=== PATIENT | female | born 1935 | race Caucasian/White ===

== ENCOUNTER 2017-07-23 15:24 | Inpatient (IN) | payer MEDICARE, OTHER ==
--- NOTE | ~2017-07-23 | HEMODYNAMI ---
PATIENT:EWELINA HERRON MEDICAL RECORD: [id number] : 35 LOCATION[facility] [id number] ADMISSION DATE: 07/23/17 Generatedon:07/27/20178:22 Patient name: EWELINA HERRON Patient #: [id number] SSN: : Date of study: 07/27/2017 Page: Of Hemodynamic Procedure Report Patient Data Patient Demographics Procedure consent was obtained First Name: EWELINA Gender: Female Last Name: GERMAINE : 1935 Patient #: [id number] Age: 82 year(s) Race: Unknown Additional ID: [id number] Contact details [address]: [address] [place] [address] State: [place] City: [place] Zip code: [address] Past Medical History Allergies Allergen Reaction Date Comments Reported Other allergy 07/27/2017 Sulfa Admission Admission Data Admission Date: 07/23/2017 Admission Time: 17:27 Room #: D.2102 Lab Results Lab Result Date: 07/27/2017 Lab Result Time: 4:13 Biochemistry Name Units Result Min Max BUN mg/dl 25 --(----)-* 7 18 Creatinine mg/dl 1.2 --(---*)-- 0.6 1.3 CBC Name Units Result Min Max Hematocrit % 42.1 --(*---)-- 42 54 Hemoglobin g/dl 14 --(*---)-- 13.5 17.5 Procedure Procedure Types Cath Procedure Diagnostic Procedure LHC LHC w/Coronaries Sedation Charges Moderate Sedation up to 15 minutes PCI Procedure Coronary Stent Coronary Stent Initial Procedure Description Procedure Date Procedure Date: 07/27/2017 Procedure Start Time: 7:58 Procedure End Time: 8:20 Procedure Staff Name Function Len Peraza MD Performing Physician Earl Patel RN Nurse Sally Giles RT Scrub Tuan Franco RT Monitor Genevieve Pichardo RT Operations Lead Procedure Data Cath Procedure Fluoroscopy Diagnostic fluoroscopy Total fluoroscopy Time: 4.6 time: 4.6 min min Diagnostic fluoroscopy Total fluoroscopy dose: 797 dose: 797 mGy mGy Contrast Material Contrast Material Type Amount (ml) Isovue 370 91 Entry Location Entry Primary Successful Side Size Upsize Upsize Entry Closure Dos Santos ccessful Closure Location (Fr) 1 (Fr) 2 (Fr) Remarks Device Remarks Radial Right 6 Fr Mechanical artery Short Compression Estimated blood loss: 10 ml Diagnostic catheters Device Type Used For End Catheter Placement DIAGNOSTIC [place] 110cm 5 Procedure Fr catheter ([id number]) Procedure Complications No complications Procedure Medications Medication Administration Route Dosage 0.9% NaCl I.V. 100 ml/hr Oxygen etCO2 Nasal cannula 2 l/min Heparin Flush Bag added to field 2 bags (1000units/500ml NS) Lidocaine 2% added to field 20 Versed I.V. 1 mg Fentanyl I.V. 50 mcg Radial Cocktail added to field 1 syringe (Verapomil 2mg/Nitro 400mcg/Heparin 1500units) Heparin Bolus I.V. 8200 units Radial Cocktail I.A. 1 syringe (Verapomil 2mg/Nitro 400mcg/Heparin 1500units) Plavix P.O. 600 mg Hemodynamics Rest HGB: 14 (g/dl) Heart Rate: 124 (bpm) Pressure Samples Time Site Value (mmHg) Purpose Heart Use Rate(bpm) 8:01 LV 107/-2,5 Snapshot 110 Gradients Valve Time Site Site Mean SEP/DFP Peak To Heart Use 1 2 (mmHg) (sec/min) Peak Rate (mmHg) (bpm) Aortic 8:02 LV AO 115 Snapshots Pre Cath Intra NCS Post Cath Vital Signs Time Heart Resp SPO2 etCO2 NIBP (mmHg) Rhythm Pain Sedation Rate (ipm) (%) (mmHg) Status Level (bpm) 7:47:52 113 34 98 27.7 130/90(119) A-Fib 0 (11) 10(A) , No pain 7:52:23 112 23 98 34.5 122/90(107) A-Fib 0 (11) 10(A) , No pain 7:57:34 111 18 96 36 130/91(117) A-Fib 0 (11) 9(A) , No pain 8:02:08 122 18 94 36.8 120/86(109) A-Fib 0 (11) 9(A) , No pain 8:06:47 119 17 92 18 98/64(81) A-Fib 0 (11) 9(A) , No pain 8:11:17 114 17 92 37.5 102/71(91) A-Fib 0 (11) 9(A) , No pain 8:15:50 110 17 94 35.2 115/72(96) A-Fib 0 (11) 10(A) , No pain 8:20:24 114 19 94 33.7 121/73(87) A-Fib 0 (11) 10(A) , No pain Medications Time Medication Route Dose Verified Delivered Reason Note s Effectiveness by by 7:50:25 0.9% NaCl I.V. 100 Earl Earl Per physician ml/hr Amanda Patel RN RN 7:50:35 Oxygen etCO2 2 l/min Earl Earl Per physician Nasal Amanda Patel cannula RN RN 7:50:50 Heparin Flush added 2 bags Earl Earl used for Bag to Lorjamar Patel procedure (1000units/500ml field RN RN NS) 7:51:09 Lidocaine 2% added 20ml Earl Earl for local to vial Lorigan Amanda anesthetic field RN RN 7:51:24 Versed I.V. 1 mg Earl Earl for sedation Amanda Patel RN RN 7:51:33 Fentanyl I.V. 50 mcg Earl Earl for sedation Amanda Patel RN RN 7:55:37 Radial Cocktail added 1 Earl Earl used for (Verapomil to syringe Lorigan Lorigan procedure 2mg/Nitro field RN RN 400mcg/Heparin 1500units) 8:01:17 Radial Cocktail I.A. 1 Earl Len for (Verapomil syringe Amanda Peraza MD vasodilation 2mg/Nitro RN 400mcg/Heparin 1500units) 8:09:40 Heparin Bolus I.V. 8,200 Earl Earl for units Amanda Patel anticoagulation RN RN 8:21:26 Plavix P.O. 600 mg Earl Earl for Lorjamar Patel antiplatelet RN RN therapy Procedure Log Time Note 7:27:52 Genevieve Pichardo RT(R) sent for patient. Start room use. 7:27:52 Time tracking: Regular hours (M-F 7:00 - 5:00) 7:27:58 Plan of Care:Hemodynamics will remain stable., Cardiac rhythm will remain stable., Comfort level will be maintained., Respiratory function will remain adequate., Patient/ family verbilizes understanding of procedure., Procedure tolerated without complication., Recovers from procedure without complications.. 7:39:56 Patient received from Med II to CCL 1 Alert and oriented. Tansferred to table in Supine position. 7:39:58 Warm blankets applied, and carl hugger turned on for patient comfort. 7:39:58 Correct patient and procedure confirmed by team. 7:40:00 Signed procedure consent form obtained from patient. 7:40:01 ECG and BP/O2 sat monitors applied to patient. 7:42:14 Pre-procedure instructions explained to patient. 7:42:14 Pre-op teaching completed and patient verbalized understanding. 7:42:16 Family in waiting room. 7:42:17 Patient NPO since Midnight. 7:42:33 Patient allergic to Other allergySulfa 7:43:10 Lab Result : Hemoglobin 14 g/dl 7:43:10 Lab Result : Hematocrit 42.1 % 7:43:10 Lab Result : BUN 25 mg/dl 7:43:10 Lab Result : Creatinine 1.2 mg/dl 7:47:08 Vital chart was started 7:47:10 Baseline sample Acquired. 7:47:19 Rhythm: atrial fibrillation 7:47:20 Full Disclosure recording started 7:47:31 H&P Date Dictated: 07/23/2017 Within 30 days and on chart.. 7:47:34 Is the patient allergic to Iodine/contrast media? No. 7:48:29 Is patient on blood thinner?No 7:48:30 Patient diabetic? No. 7:48:34 Previous problem with sedation/anesthesia? No ? 7:48:35 Snore? No 7:48:37 Sleep apnea? No 7:48:38 Deviated septum? No 7:48:38 Opens mouth fully? Yes 7:48:39 Sticks out tongue? Yes 7:48:41 Airway obstruction? No ? 7:48:46 Dentures? Yes Partial in tight 7:48:51 Modified Aydin's test Ulnar < 7 seconds 7:48:52 Patient pain scale 0/10 ?. 7:49:07 IV patent on arrival in left forearm with 0.9% NaCl at [facility]. 7:49:09 Lab results completed and on chart. 7:49:12 Right Radial & Right Groin area was prepped with chlora-prep and draped in sterile fashion 7:49:13 Alarms reviewed by R. N. 7:49:14 Sharps counted by scrub and verified by R.N. 7:49:18 Use device set Radial Dx or PCI 7:49:19 ACIST Syringe (62517) opened to sterile field. 7:49:19 Medline Cath Pack ([id number]) opened to sterile field. 7:49:20 Bag Decanter (2002S) opened to sterile field. 7:49:21 ACIST Hand Control (24867) opened to sterile field. 7:49:22 ACIST Manifold (67813) opened to sterile field. 7:49:22 Tegaderm 4 x 4 (1626W) opened to sterile field. 7:49:23 MBrace Wrist Support ([id number]) opened to sterile field. 7:49:24 SHEATH 6Fr Prelude Radial ([id number]) opened to sterile field. 7:49:25 DIAGNOSTIC WIRE .035 260cm J wire (103950) opened to sterile field. 7:49:35 Physician arrived 7:49:40 --------ALL STOP TIME OUT------ 7:49:40 Final Timeout: patient, procedure, and site verified with staff and physician. All members of the team are in agreement. 7:49:42 Right Radial & Right Groin site verified by team. 7:49:46 Physical assessment completed. ASA score P 2 - A patient with mild systemic disease as per Len Peraza MD. 7:49:49 Sedation plan: IV Moderate Sedation Medication:Versed, Fentanyl 7:50:25 0.9% NaCl 100 ml/hr I.V. was administered by Earl Patel RN; Per physician; 7:50:35 Oxygen 2 l/min etCO2 Nasal cannula was administered by Earl Patel RN; Per physician; 7:50:50 Heparin Flush Bag (1000units/500ml NS) 2 bags added to field was administered by Earl Patel RN; used for procedure; 7:51:09 Lidocaine 2% 20ml vial added to field was administered by Earl Patel RN; for local anesthetic; 7:51:24 Versed 1 mg I.V. was administered by Earl Patel RN; for sedation; 7:51:33 Fentanyl 50 mcg I.V. was administered by Earl Patel RN; for sedation; 7:55:37 Radial Cocktail (Verapomil 2mg/Nitro 400mcg/Heparin 1500units) 1 syringe added to field was administered by Earl Patel RN; used for procedure; 7:55:45 Zero performed for pressure channel P1 7:55:48 Zero performed for pressure channel P1 7:55:59 Zero performed for pressure channel P1 7:58:13 Procedure started. 7:58:16 Local anesthetic to right radial artery with Lidocaine 2% by Len Peraza MD.INITIAL ACCESS ONLY 8:00:01 A 6 Fr Short sheath was inserted into the Right Radial artery 8:00:05 A DIAGNOSTIC [place] 110cm 5 Fr catheter ([id number]) was advanced over the wire and used for Procedure. 8:01:17 Radial Cocktail (Verapomil 2mg/Nitro 400mcg/Heparin 1500units) 1 syringe I.A. was administered by Len Peraza MD; for vasodilation; 8:01:30 LV gram done using COHEN 8:01:32 Injector settings: Ml/sec: 5, Volume: 15, 8:01:45 EF : 20 % 8:02:14 LV hemodynamics recorded. 8:02:30 LCA angiography performed. 8:03:49 RCA angiography performed. 8:05:07 Catheter exchanged over wire. 8:05:36 GUIDE 6FR XBLAD 3.5 catheter ([id number]) opened to sterile field. 8:05:37 BMW 300cm Troy 2 J wire ([id number]) opened to sterile field. 8:05:38 INFLATOR Merit BasixCompak (QZ3579) opened to sterile field. 8:05:39 TUBING High Pressure Extension Tubing (Peraza) ([id number]) opened to sterile field. 8:05:54 6 Fr xblad 3.5 guide catheter was inserted over the wire 8:09:01 bmw wire advanced. 8:09:35 Wire advanced across lesion. 8:09:40 Heparin Bolus 8,200 units I.V. was administered by Earl Patel RN; for anticoagulation; 8:14:06 Place stent Inflation Number: 1 A INTEGRITY OTW 3.5 X 12 stent ([id number]) was prepped and advanced across the Prox LAD. The stent was deployed at 16 LIONEL for 0:10 (min:sec). 8:15:25 Stent catheter was removed intact over wire. 8:15:27 Wire removed. 8:15:27 Guide catheter removed. 8:16:24 TR BAND Standard ([id number]) opened to sterile field. 8:16:33 Sheath removed intact; hemostasis achieved with Mechanical Compression to the Right Radial artery. 8:16:35 Procedure ended.(Physican Out) 8:18:11 Fluoroscopy time 04.60 minutes. 8:18:15 Fluoroscopy dose: 797 mGy 8:18:15 Flurop Dose total: 797 8:18:23 Contrast amount:Isovue 370 91ml. 8:18:25 Sharps counted by scrub and verified by R.N. 8:18:27 TR band inflated with 11cc of air. 8:18:28 Insertion/operative site no bleeding no hematoma. 8:18:35 Post right radial artery:stable, soft, clean and dry 8:18:36 Post Procedure Pulses reassessed and unchanged 8:18:39 Post-procedure physical assessment completed. ASA score P 2 - A patient with mild systemic disease as per Len Peraza MD. 8:18:41 Post procedure rhythm: unchanged. 8:18:44 Estimated blood loss: 10 ml 8:18:45 Post procedure instruction explained to patient.Patient verbalizes understanding. 8:18:46 Patient needs reinforcement of post procedure teaching. 8:18:52 Procedure type changed to Cath procedure, Diagnostic procedure, LHC, LHC w/Coronaries, Sedation Charges, Moderate Sedation up to 15 minutes, PCI procedure, Coronary Stent, Coronary Stent Initial 8:20:13 Procedure and supply charges have been captured, reviewed, submitted and are correct. 8:20:15 Procedure Complication : No complications 8:20:26 Vital chart was stopped 8:20:26 See physician's report for complete and final results. 8:20:40 Report given to PCU. 8:20:43 Patient transfered to PCU with Stretcher. 8:20:45 Procedure ended. 8:20:45 Full Disclosure recording stopped 8:20:59 End room use (Document Last) 8:21:26 Plavix 600 mg P.O. was administered by Earl Patel RN; for antiplatelet therapy; Intervention Summary Intervention Notes Time ActionType Lesion and Equipment Action# Pressure Duration Attributes Used 8:14:[address] Place stent Prox LAD INTEGRITY 1 16 00:10 OTW 3.5 X 12 stent ([id number]) Device Usage Item Name Manufacture Quantity Catalog Number Hospital Part Current M inimal Lot# / Charge Number Stock Stock Serial# Code ACIST Syringe Acist 1 59806 789962 080934 747701 2 0 (43105) Medical Systems Inc Medline Cath Cardinal 1 [id number] 328588 25120 699753 5 Pack Health ([id number]) Bag Decanter Microtek 1 2001S 061100 25134 237829 5 () Medical Inc. ACIST Hand Acist 1 42075 151374 358163 458080 5 Control (13680) Medical Systems Inc ACIST Manifold Acist 1 81714 185931 976198 985834 5 (22091) Medical Systems Inc Tegaderm 4 x 4 3M 1 1626W 048232 640671 177785 5 (1626W) MBrace Wrist Advanced 1 140-0250-00 180366 93409 775998 5 Support Vascular (547188247) Dynamics SHEATH 6Fr Merit 1 [id number] 238723 568197 039498 5 Prelude Radial Medical ([id number]) DIAGNOSTIC WIRE St Yousuf 1 620712 914206 355046 195164 3 0 .035 260cm J wire (178453) DIAGNOSTIC Terumo 1 40-6433 557035 155950 266620 5 [place] 110cm 5 Fr catheter (359032) GUIDE 6FR XBLAD Cardinal 1 [id number] 389858 168965 037381 1 0 3.5 catheter Health (55028963) BMW 300cm [place] 1 [id number] 682839 585262 784455 5 Troy 2 J Vascular wire (8065725L) INFLATOR Merit Merit 1 HZ9600 306450 443183 693256 1 5 Nimble Medical (IU4064) TUBING High Merit 1 [id number] 557865 13684 442584 1 0 Pressure Medical Extension Tubing (Preaza) (DN7640L) INTEGRITY OTW Medtronic 1 [id number] 866673 310500 2 [id number] 3.5 X 12 stent ([id number]) TR BAND Terumo 1 [id number] 100722 256964 508034 4 0 Standard ([id number]) Signature Audit [place] Stage Time Signature Unsigned Intra-Procedure 07/27/2017 Tuan Franco 8:22:42 AM RT(R) Signatures Monitor : Tuan Franco RT Signature : Date : Time : [id number] [place] [address]
[2017-07-23 16:43] LABS: BASOPHILS 0.4 % (0-2); EOSINOPHILS 0.6 % (0-7); HEMATOCRIT 40.9 % (36.0-48.0); HEMOGLOBIN 13.4 g/dL (12-16); IMMATURE GRANULOCYTES 0.1 % (0-5); LYMPHOCYTES 16.9 % (15-50); MCH 30.7 pg (26.0-34.0); MCHC 32.8 g/dL (31.0-37.0); MCV 93.6 fL (80.0-100.0); MEAN PLATELET VOLUME 11.8 fL (7.4-10.4); MONOCYTES 6.5 % (2-11); NEUTROPHILS 75.5 % (40-80); PLATELET COUNT 196 10x3/uL (130-400); RBC 4.37 10x6/uL (4.00-5.40); RDW 13.4 % (11.5-14.5); WBC 9.4 10x3/uL (4.8-10.8)
[2017-07-23 16:56] LABS: ANION GAP 12.5 mmol/L (8-16); BILIRUBIN - TOTAL 0.53 mg/dL (0.2-1.3); CALCIUM 9.5 mg/dL (8.5-10.1); CREATININE - SERUM 1.1 mg/dL (0.6-1.3); POTASSIUM - SERUM 4.5 mmol/L (3.5-5.1); PROTEIN - SERUM 7.6 g/dL (6.4-8.2)
[2017-07-23 21:23] VITALS: BP 149/65
[2017-07-24 01:38] VITALS: BP 147/75
[2017-07-24 04:53] VITALS: BP 125/68
[2017-07-24 09:09] VITALS: BP 144/68
[2017-07-24 11:53] VITALS: BP 125/79
[2017-07-24] MEDS ORDERED: LEVOTHYROXINE75 MCG PO (12:42)
[2017-07-24] MEDS ORDERED: PRAVACHOL80 MG PO (12:43)
[2017-07-24] MEDS ORDERED: ZETIA10 MG PO (12:43)
[2017-07-24 16:50] VITALS: BP 122/75
[2017-07-24 17:11] LABS: APPEARANCE CLEAR (CLEAR); BILIRUBIN NEGATIVE (NEGATIVE); COLOR YELLOW (YELLOW); GLUCOSE NEGATIVE (NEGATIVE); KETONE NEGATIVE (NEGATIVE); NITRITE NEGATIVE (NEGATIVE); PROTEIN NEGATIVE (NEGATIVE); SPECIFIC GRAVITY 1.025 (1.005-1.020); UROBILINOGEN NORMAL (NORMAL)
[2017-07-24 17:12] LABS: BACTERIA FEW /hpf (NONE SEEN); EPITHELIAL CELLS 0-5 /hpf (0-5); RED CELLS - URINE OCC /hpf (0-5); WHITE CELLS - URINE 0-5 /hpf (0-5)
[2017-07-24 19:16] LABS: CKMB 2.7 U/L (0.0-3.6); CREATINE KINASE 487 UL (21-215); TROPONIN-I 0.044 ng/mL (0.000-0.060)
[2017-07-24 22:57] VITALS: BP 127/82
[2017-07-24 23:52] LABS: CKMB 2.6 U/L (0.0-3.6); CREATINE KINASE 800 UL (21-215); TROPONIN-I 0.051 ng/mL (0.000-0.060)
[2017-07-25 02:49] VITALS: BP 111/70
[2017-07-25 05:26] LABS: BASOPHILS 0.4 % (0-2); EOSINOPHILS 3.3 % (0-7); HEMATOCRIT 41.3 % (36.0-48.0); HEMOGLOBIN 13.3 g/dL (12-16); IMMATURE GRANULOCYTES 0.1 % (0-5); LYMPHOCYTES 26.5 % (15-50); MCHC 32.2 g/dL (31.0-37.0); MCV 93.2 fL (80.0-100.0); MONOCYTES 9.8 % (2-11); NEUTROPHILS 59.9 % (40-80); PLATELET COUNT 178 10x3/uL (130-400); RBC 4.43 10x6/uL (4.00-5.40); RDW 13.6 % (11.5-14.5); WBC 6.7 10x3/uL (4.8-10.8)
[2017-07-25 05:58] VITALS: BP 101/73
[2017-07-25 05:58] LABS: CALC OSMOLALITY 292 mosm/kg (275-300); CALCIUM 9.6 mg/dL (8.5-10.1); CARBON DIOXIDE 25.9 mmol/L (21.0-32.0); CHLORIDE - SERUM 104 mmol/L (98-107); CKMB 3.2 U/L (0.0-3.6); GLUCOSE 167 mg/dL (74-106); SODIUM 143 mmol/L (136-145); TROPONIN-I 0.037 ng/mL (0.000-0.060); UREA NITROGEN 24 mg/dL (7-18)
[2017-07-25 06:02] LABS: CREATINE KINASE 844 UL (21-215); CREATININE - SERUM 1.4 mg/dL (0.6-1.3); POTASSIUM - SERUM 3.6 mmol/L (3.5-5.1); eGFR NON AFRICAN AMERICAN 38 mL/min (90-120)
[2017-07-25 08:33] VITALS: BP 129/63
[2017-07-25 11:58] VITALS: BP 127/49
[2017-07-25 16:44] VITALS: BP 119/67
[2017-07-25 21:57] VITALS: BP 141/75
[2017-07-26 01:43] VITALS: BP 130/72
[2017-07-26 05:24] LABS: BASOPHILS 0.7 % (0-2); EOSINOPHILS 3.6 % (0-7); HEMATOCRIT 41.2 % (36.0-48.0); HEMOGLOBIN 13.3 g/dL (12-16); IMMATURE GRANULOCYTES 0.1 % (0-5); LYMPHOCYTES 20.9 % (15-50); MCH 30.2 pg (26.0-34.0); MCHC 32.3 g/dL (31.0-37.0); MCV 93.4 fL (80.0-100.0); MEAN PLATELET VOLUME 11.2 fL (7.4-10.4); MONOCYTES 12.1 % (2-11); NEUTROPHILS 62.6 % (40-80); PLATELET COUNT 198 10x3/uL (130-400); RBC 4.41 10x6/uL (4.00-5.40); RDW 13.4 % (11.5-14.5); WBC 6.7 10x3/uL (4.8-10.8)
[2017-07-26 05:36] LABS: ANION GAP 15.6 mmol/L (8-16); CALCIUM 9.2 mg/dL (8.5-10.1); CARBON DIOXIDE 26.5 mmol/L (21.0-32.0); CREATININE - SERUM 1.3 mg/dL (0.6-1.3); POTASSIUM - SERUM 4.1 mmol/L (3.5-5.1)
[2017-07-26 06:17] VITALS: BP 149/88
[2017-07-26 08:18] VITALS: BP 137/99
[2017-07-26 12:28] VITALS: BP 111/78
[2017-07-26 16:30] VITALS: BP 122/73
[2017-07-27 00:58] VITALS: BP 125/95
[2017-07-27 04:57] LABS: BASOPHILS 0.6 % (0-2); EOSINOPHILS 4.4 % (0-7); HEMATOCRIT 42.1 % (36.0-48.0); MCH 30.8 pg (26.0-34.0); MCHC 33.3 g/dL (31.0-37.0); MCV 92.7 fL (80.0-100.0); MEAN PLATELET VOLUME 11.6 fL (7.4-10.4); MONOCYTES 11.4 % (2-11); NEUTROPHILS 62.6 % (40-80); PLATELET COUNT 201 10x3/uL (130-400); RBC 4.54 10x6/uL (4.00-5.40); RDW 13.5 % (11.5-14.5); WBC 6.9 10x3/uL (4.8-10.8)
[2017-07-27 05:14] LABS: ANION GAP 16.3 mmol/L (8-16); CALCIUM 9.3 mg/dL (8.5-10.1); CARBON DIOXIDE 27.6 mmol/L (21.0-32.0); CREATININE - SERUM 1.2 mg/dL (0.6-1.3); POTASSIUM - SERUM 3.9 mmol/L (3.5-5.1)
[2017-07-27 06:33] VITALS: BP 135/73
[2017-07-27 09:13] VITALS: BP 149/86
[2017-07-27 12:46] VITALS: BP 126/77
[2017-07-27 16:43] VITALS: BP 133/64
[2017-07-27 20:00] VITALS: BP 107/66
[2017-07-28] VITALS: BP 128/53
[2017-07-28 04:00] VITALS: BP 131/79
[2017-07-28 06:18] LABS: BASOPHILS 0.6 % (0-2); HEMOGLOBIN 12.9 g/dL (12-16); IMMATURE GRANULOCYTES 0.1 % (0-5); LYMPHOCYTES 24.3 % (15-50); MCH 30.1 pg (26.0-34.0); MCHC 32.3 g/dL (31.0-37.0); MCV 93.2 fL (80.0-100.0); MEAN PLATELET VOLUME 11.6 fL (7.4-10.4); MONOCYTES 9.8 % (2-11); NEUTROPHILS 61.2 % (40-80); PLATELET COUNT 197 10x3/uL (130-400); RBC 4.29 10x6/uL (4.00-5.40); RDW 13.5 % (11.5-14.5); WBC 6.8 10x3/uL (4.8-10.8)
[2017-07-28 06:39] LABS: ANION GAP 15.4 mmol/L (8-16); CALCIUM 8.9 mg/dL (8.5-10.1); CARBON DIOXIDE 24.5 mmol/L (21.0-32.0); CREATININE - SERUM 1.3 mg/dL (0.6-1.3); POTASSIUM - SERUM 3.9 mmol/L (3.5-5.1)
[2017-07-28 08:33] VITALS: BP 142/49
[2017-07-28] MEDS ORDERED: PLAVIX75 MG PO (10:42)
[2017-07-28] MEDS ORDERED: XARELTO15 MG PO (10:44)
[2017-07-28] MEDS ORDERED: CORDARONE200 MG PO (10:44)
[2017-07-28] MEDS ORDERED: FUROSEMIDE20 MG PO (10:47)
[2017-07-28 11:35] VITALS: BP 127/63
[2017-07-28 15:38] VITALS: BP 116/69
== END 2017-07-28 16:23 | disposition home or self-care (01) | DRG 248 ==
LOC: D.ER 15:24 → D.M2 17:27 → D.EDHOLD 17:27 → D.M2 18:32
PROVIDERS: Emergency Medicine; Internal Medicine Cardiovascular Disease; Internal Medicine Nephrology
PROC: B2111ZZ Fluoroscopy of Multiple Coronary Arteries using Low Osmolar Contrast (ICD-10-PCS; 2017-07-27)
PROC: B2151ZZ Fluoroscopy of Left Heart using Low Osmolar Contrast (ICD-10-PCS; 2017-07-27)
PROC: 02703DZ Dilation of Coronary Artery, One Artery with Intraluminal Device, Percutaneous Approach (ICD-10-PCS; principal; 2017-07-27 08:00)
PROC: 4A023N7 Measurement of Cardiac Sampling and Pressure, Left Heart, Percutaneous Approach (ICD-10-PCS; 2017-07-27 08:00)
DX: I25.10 Atherosclerotic heart disease of native coronary artery without angina pectoris (principal); I50.23 Acute on chronic systolic (congestive) heart failure; N17.9 Acute kidney failure, unspecified; J98.11 Atelectasis; I42.9 Cardiomyopathy, unspecified; I08.1 Rheumatic disorders of both mitral and tricuspid valves; I48.91 Unspecified atrial fibrillation; I11.0 Hypertensive heart disease with heart failure; E78.5 Hyperlipidemia, unspecified; K21.9 Gastro-esophageal reflux disease without esophagitis; Z87.891 Personal history of nicotine dependence

== ENCOUNTER 2017-12-04 11:07 | Emergency (ER) | payer MEDICARE, OTHER ==
[~2017-12-04] VITALS: Ht 170.2 cm; Wt 79.5 kg
[~2017-12-04 11:07] MED LIST: CORDARONE200 MG PO; FUROSEMIDE20 MG PO; LEVOTHYROXINE75 MCG PO; PLAVIX75 MG PO; PRAVACHOL80 MG PO; XARELTO15 MG PO; ZETIA10 MG PO
[2017-12-04 11:19] VITALS: BP 136/79; Ht 170.2 cm; Wt 79.5 kg
[2017-12-04] MEDS ORDERED: ASPIRIN81 MG PO (11:21)
[2017-12-04 12:05] LABS: BASOPHILS 0.5 % (0-2); EOSINOPHILS 1.4 % (0-7); HEMATOCRIT 45.7 % (36.0-48.0); HEMOGLOBIN 15.4 g/dL (12-16); IMMATURE GRANULOCYTES 0.3 % (0-5); LYMPHOCYTES 23.2 % (15-50); MCH 30.2 pg (26.0-34.0); MCHC 33.7 g/dL (31.0-37.0); MCV 89.6 fL (80.0-100.0); MEAN PLATELET VOLUME 11.6 fL (7.4-10.4); MONOCYTES 8.3 % (2-11); NEUTROPHILS 66.3 % (40-80); PLATELET COUNT 209 10x3/uL (130-400); RDW 14.4 % (11.5-14.5); WBC 6.6 10x3/uL (4.8-10.8)
[2017-12-04 12:14] LABS: APTT 31.9 SECONDS (22.8-39.4); INR 1.86 (0.85-1.17); PROTIME 20.8 SECONDS (11.6-15.0)
[2017-12-04 12:28] LABS: ALBUMIN 4.2 g/dL (3.4-5.0); ANION GAP 15.4 mmol/L (8-16); BILIRUBIN - TOTAL 0.65 mg/dL (0.2-1.3); CALCIUM 9.6 mg/dL (8.5-10.1); CARBON DIOXIDE 28.5 mmol/L (21.0-32.0); CREATININE - SERUM 1.6 mg/dL (0.6-1.3); POTASSIUM - SERUM 3.9 mmol/L (3.5-5.1); PROTEIN - SERUM 8.2 g/dL (6.4-8.2)
[2017-12-04 12:37] LABS: APPEARANCE CLEAR (CLEAR); BILIRUBIN NEGATIVE (NEGATIVE); COLOR STRAW (YELLOW); GLUCOSE NEGATIVE (NEGATIVE); KETONE NEGATIVE (NEGATIVE); NITRITE NEGATIVE (NEGATIVE); PROTEIN NEGATIVE (NEGATIVE); UROBILINOGEN NORMAL (NORMAL)
== END 2017-12-04 14:17 | disposition home or self-care (01) ==
LOC: D.ER 11:07
PROVIDERS: Family Medicine
DX: H81.10 Benign paroxysmal vertigo, unspecified ear (principal); R11.0 Nausea; E07.9 Disorder of thyroid, unspecified

== ENCOUNTER 2018-02-09 11:52 | Outpatient (CLI) | payer MEDICARE, OTHER ==
[~2018-02-09] VITALS: Ht 170.2 cm; Wt 84.5 kg
--- NOTE | ~2018-02-09 | OP ---
PATIENT NAME: EWELINA VAZQUEZ MEDICAL RECORD: [id number] :35 LOCATION:D.M2 D.2117 ADMISSION DATE: SURGEON: LORETTA BROWN MD DATE OF OPERATION: 02/09/2018 PROCEDURE: Lead portion of permanent pacemaker placement on Ewelina Vazquez. INDICATION: Sick sinus syndrome with junctional escape. SURGEON: Murali García MD DESCRIPTION OF PROCEDURE: After left subclavian was cannulated via modified Seldinger technique via Dr. García first under fluoroscopic guidance, I placed the RV lead in RV apex without difficulty. After adequate R waves and thresholds were obtained, again under fluoroscopic guidance, I placed the right atrial lead in right atrial appendage without difficulty. After adequate P waves and thresholds were obtained, the leads were attached to appropriate poles of the generator and the pocket was closed via Dr. García. IMPRESSION: Successful lead portion of pacemaker placement on Ewelina Vazquez. COMPLICATIONS: None. ESTIMATED BLOOD LOSS: Minimal. DISPOSITION: To the floor, stable. TRANSINT:[id number] Voice Confirmation ID: [id number] DOCUMENT ID: [id number] LORETTA BROWN MD CC: [id number] DICTATION DATE: 02/09/18 1542 WALLET ASSEMBLER: 02/09/182005 [facility] [address] [place] [address]
--- NOTE | ~2018-02-09 | OP ---
PATIENT NAME: EWELINA HERRON MEDICAL RECORD: [id number] :35 LOCATION:D.M2 D.2117 ADMISSION DATE: SURGEON: YAZ HAMMONDS MD DATE OF OPERATION: 02/09/2018 PREOPERATIVE DIAGNOSES: 1. Atrial fibrillation. 2. Sick sinus syndrome. 3. Coronary artery disease. 4. Hypertension. 5. Hyperlipidemia. POSTOPERATIVE DIAGNOSES: 1. Atrial fibrillation. 2. Sick sinus syndrome. 3. Coronary artery disease. 4. Hypertension. 5. Hyperlipidemia. PROCEDURE: 1. Left subclavian vein dual lead pacemaker placement. 2. Fluoroscopic interpretation. SURGEON: Yaz Hammonds MD COSURGEON: Vipul Mehta MD REPORT OF OPERATION: The patient's left chest was prepped and draped in sterile fashion. A total of 20 mL of 1% lidocaine with epinephrine was infused into the subcutaneous tissues. A skin incision was then made overlying the left superior lateral chest and a subcutaneous pouch was made over the left pectoral muscle. During dissection, there was noted to be some branch vessels present which were injured. These were clamped and ligated with 3-0 Vicryl ties. The left subclavian vein was accessed times 2 and guidewires were advanced with ease. Fluoro was used to note that the wires were in good position in the venous system. The dilator trocar devices were placed over the wires and the wires and dilators were removed. The leads were advanced through the trocars. At this point, Dr. Mehta positioned the leads appropriately in atrium and ventricle. Once the leads were noted to be functioning appropriately, then the trocars were removed. The leads were then sutured down to the pectoral fascia using interrupted 0 Ti-Cron. The leads were affixed to the pacemaker and this was placed into the subcutaneous pouch. The pacemaker was sutured to the pectoral fascia using a single interrupted 0 Ti-Cron. We irrigated out the wound with antibiotic solution. The subcutaneous tissues were then reapproximated with interrupted 3-0 Vicryls and the skin was closed with running subcutaneous 5-0 Monocryl. COMPLICATIONS: None. CONDITION: Stable. ANESTHESIA: Local MAC. BLOOD LOSS: Minimal. OPERATIVE REPORT [id number] EWELINA HERRON TRANSINT:[id number] Voice Confirmation ID: [id number] DOCUMENT ID: [id number] YAZ HAMMONDS MD CC: [id number] DICTATION DATE: 02/09/18 155 FACILITIES ENGINEERING MANAGER: 02/09/18 194 [facility] [address] [facility], [facility]
--- NOTE | ~2018-02-09 | HEMODYNAMI ---
PATIENT:EWELINA HERRON MEDICAL RECORD: [id number] : 35 LOCATION:[facility] ADMISSION DATE: 02/09/18 Generatedon:02/09/201815:51 Patient name: EWELINA HERRON Patient #: [id number] SSN: : Date of study: 02/09/2018 Page: Of Hemodynamic Procedure Report Patient Data Patient Demographics Procedure consent was obtained First Name: EWELINA Gender: Female Last Name: GERMAINE : 1935 [facility] Initial: [place] Age: 83 year(s) Patient #: [id number] Race: Unknown Additional ID: [id number] Contact details [address]: [address] [place] [address] State: [place] City: [place] Zip code: [address] Past Medical History Allergies Allergen Reaction Date Comments Reported Other allergy 07/27/2017 Sulfa Admission Admission Data Admission Date: 02/09/2018 Admission Time: 11:52 Procedure Procedure Types Cath Procedure Diagnostic Procedure PPM/ICD PPM Dual Implant Sedation Charges Moderate Sedation up to 15 minutes Procedure Description Procedure Date Procedure Date: 02/09/2018 Procedure Start Time: 15:24 Procedure End Time: 15:50 Procedure Staff Name Function Vipul Hernandez MD Performing Physician Murali García MD Assisting physician Chaz Sena RT Monitor Genevieve Pichardo RT Scrub Marge Mortensen RN Nurse Tuan Franco RT Monitor Procedure Data Cath Procedure Fluoroscopy Diagnostic fluoroscopy Total fluoroscopy Time: 1.2 time: 1.2 min min Diagnostic fluoroscopy Total fluoroscopy dose: dose: 21.46 mGy 21.46 mGy Contrast Material Contrast Material Type Amount (ml) Isovue 300 0 Estimated blood loss: 5 ml Procedure Complications No complications Procedure Medications Medication Administration Route Dosage Oxygen etCO2 Nasal cannula 2 l/min Lidocaine 1% added to field 20 Ancef (1Gm/50ml NS) I.V.P.B 1 g Ancef Irrigation Topical 1 g (1gm/500ml NS) Versed I.V. 2 mg Fentanyl I.V. 100 mcg Versed I.V. 1 mg Fentanyl I.V. 50 mcg Versed I.V. 1 mg Fentanyl I.V. 50 mcg Hemodynamics Rest Heart Rate: 72 (bpm) Snapshots Pre Cath Intra NCS Post Cath Vital Signs Time Heart Resp SPO2 etCO2 NIBP (mmHg) Rhythm Pain Sedation Rate (ipm) (%) (mmHg) Status Level (bpm) 15:09:54 69 11 99 35.2 177/88(132) A-Fib 0 (11) 10(A) , No pain 15:14:24 63 14 99 36.7 159/82(125) A-Fib 0 (11) 10(A) , No pain 15:18:49 73 15 93 42.7 149/82(110) A-Fib 0 (11) 10(A) , No pain 15:23:15 71 15 97 40.5 143/79(98) A-Fib 0 (11) 10(A) , No pain 15:27:37 62 18 100 38.2 143/85(134) A-Fib 0 (11) 10(A) , No pain 15:31:49 72 15 99 39 148/97(123) A-Fib 0 (11) 10(A) , No pain 15:36:58 63 13 100 39 154/80(114) A-Fib 0 (11) 10(A) , No pain 15:41:23 62 23 95 39.8 148/88(107) A-Fib 0 (11) 10(A) , No pain 15:45:45 71 22 96 33.7 147/89(119) Paced 0 (11) 10(A) , No pain 15:50:01 66 15 94 33.7 147/98(118) Paced 0 (11) 10(A) , No pain Medications Time Medication Route Dose Verified Delivered Reason Notes Effectiv eness by by 15:08:52 Oxygen etCO2 2 Vipul Buffie used for Nasal l/min Mary Mortensen glassie cannula 15:09:02 Lidocaine added 20ml Vipul Carrion for local 1% to vial St Geraldo García MD anesthetic field 15:09:14 Ancef I.V.P.B 1 g Vipul Buffie used for (1Gm/50ml [facility] Geraldo Mortensen glassie NS) 15:09:23 Ancef Topical 1 g Vipul Buffie used for Irrigation Mary Mortensen glassie (1gm/500ml NS) 15:20:04 Versed I.V. 2 mg Vipul Bird for [facility] Geraldo Mortensen RN sedation 15:20:11 Fentanyl I.V. 100 Vipul Bird [facility] Geraldo Mortensen RN sedation 15:27:13 Versed I.V. 1 mg Vipul Bird for [facility] Geraldo Mortensen RN sedation 15:27:19 Fentanyl I.V. 50 Vipul Bird for emi Rodriguez RN sedation 15:34:38 Versed I.V. 1 mg Vip[address] Bird for [facility] Geraldo Mortensen RN sedation 15:34:42 Fentanyl I.V. 50 Vipul Mccordie [facility] Geraldo Mortensen RN sedation Procedure Log Time Note 14:25:22 Time tracking: Regular hours (M-F 7:00 - 5:00) 14::25 Plan of Care:Hemodynamics will remain stable., Cardiac rhythm will remain stable., Comfort level will be maintained., Respiratory function will remain adequate., Patient/ family verbilizes understanding of procedure., Procedure tolerated without complication., Recovers from procedure without complications.. 14:44:42 Marge Mortensen RN sent for patient. Start room use. 14:45:29 [employer] workforce services representative Sharad Hickman present for procedure. 14:54:30 Patient received from Pre/Post Procedure Room to CCL 3 Alert and oriented. Tansferred to table in Supine position. 14:54:32 Warm blankets applied, and carl hugger turned on for patient comfort. 14:54:32 Correct patient and procedure confirmed by team. 14:54:33 Signed procedure consent form obtained from patient. 14:54:34 ECG and BP/O2 sat monitors applied to patient. 14:54:35 Full Disclosure recording started 15:08:29 Vital chart was started 15:08:52 Oxygen 2 l/min etCO2 Nasal cannula was administered by Marge Mortensen RN; used for procedure; 15:09:02 Lidocaine 1% 20ml vial added to field was administered by Murali García MD; for local anesthetic; 15:09:14 Ancef (1Gm/50ml NS) 1 g I.V.P.B was administered by Marge Mortensen RN; used for procedure; 15:09:23 Ancef Irrigation (1gm/500ml NS) 1 g Topical was administered by Marge Mortensen RN; used for procedure; 15:10:53 Baseline sample Acquired. 15:11:08 Rhythm: atrial fibrillation 15:11:51 H&P Date Dictated: 02/02/2018 Within 30 days and on chart., H&P Addendum completed by physician on day of procedure. (MUST COMPLETE FOR ALL OUTPATIENTS). 15:11:52 Pre-procedure instructions explained to patient. 15:11:52 Pre-op teaching completed and patient verbalized understanding. 15:11:55 Family in patients room. 15:11:57 Patient NPO since Midnight. 15:11:58 Is the patient allergic to Iodine/contrast media? No. 15:12:01 Is patient on blood thinner?Yes 15:12:11 ACC The patient was administered the following blood thiners within the last 24 hours: None 15:12:44 Last dose of Xarelto was 11.25.18 15:13:16 Patient diabetic? No. 15:13:21 Previous problem with sedation/anesthesia? No ? 15:13:22 Snore? No 15:13:24 Sleep apnea? No 15:13:32 Deviated septum? No 15:13:32 Opens mouth fully? Yes 15:13:33 Sticks out tongue? Yes 15:13:35 Airway obstruction? No ? 15:13:37 Dentures? Yes IN 15:13:44 Patient pain scale 0/10 ?. 15:13:49 IV patent on arrival in left forearm with 0.9% NaCl at [facility]. 15:13:51 Lab results completed and on chart. 15:13:58 Left chest area was prepped with chlora-prep and draped in sterile fashion 15:14:00 Alarms reviewed by R. N. 15:14:00 Sharps counted by scrub and verified by R.N. 15:14:08 Use device set NASRA PPM 15:14:12 Immobilizer Large opened to sterile field. 15:14:13 Mepilex Dressing (296487) opened to sterile field. 15:14:14 Cautery Pushbutton Pencil opened to sterile field. 15:14:15 Cautery Tip Appointment Scheduler opened to sterile field. 15:14:16 5-0 Monocryl PS2 [id number] opened to sterile field. 15:14:17 3-0 Vicryl Single Pack [id number] opened to sterile field. 15:14:17 2-0 Ticron Multipack ([id number]) opened to sterile field. 15:19:03 --------ALL STOP TIME OUT------ 15:: Final Timeout: patient, procedure, and site verified with staff and physician. All members of the team are in agreement. 15:19: Left chest site verified by team. 15:19:14 Physical assessment completed. ASA score P 2 - A patient with mild systemic disease as per Vipul Hernandez MD. 15:19:19 Sedation plan: IV Moderate Sedation Medication:Versed, Fentanyl 15:20:04 Versed 2 mg I.V. was administered by Marge Mortensen RN; for sedation; 15:20:11 Fentanyl 100 mcg I.V. was administered by Marge Mortensen RN; for sedation; 15:23:21 Procedure started. 15:24:27 Pre sharps counted by scrub and verified by RN: Sutures: 7; Sponges: 5; Stick needles: 2; Skin needles: 2; Blade: 1; Cautery: 1 15:24:41 Grounding pad site Left thigh. 15:24:43 Grounding pad site free from injury. 15:24:48 Lidocaine 1% was administered to left subclavicular area by Murali García MD . 15:25:28 Incision made to left subclavicular area. 15:27:13 Versed 1 mg I.V. was administered by Marge Mortensen RN; for sedation; 15:27:19 Fentanyl 50 mcg I.V. was administered by Marge Mortensen RN; for sedation; 15:28:49 Generator pocket made/opened. 15:31:02 Left subclavian vein accessed with 7Fr Peel Away Sheath. 15:31:53 Medtronic Adapta PPM Dual Generator [id number] opened to sterile field. 15:31:54 Med[employer]onic 4574-45 PPM Lead opened to sterile field. 15:31:55 Med[employer]onic 4074-52 PPM Lead opened to sterile field. 15:32:36 Left subclavian vein accessed with 7Fr Peel Away Sheath. 15:32:44 Ventricular lead inserted and advanced. 15:34:08 Atrial lead inserted and advanced. 15:34:38 Versed 1 mg I.V. was administered by Marge Mortensen RN; for sedation; 15:34:42 Fentanyl 50 mcg I.V. was administered by Marge Mortensen RN; for sedation; 15:35:10 Ventricular lead positioned. 15:35:13 Ventricular lead tested. 15:35:20 Atrial lead positioned. 15:35:23 Atrial lead tested. 15:35:45 Peel-a-way sheath was split and removed. 15:35:55 Peel-a-way sheath was split and removed. 15:37:43 Ventricular lead attachment was completed with 2-0 ticron. 15:37:49 Atrial lead attachment was completed with 2-0 ticron. 15:41:00 PPM Dual was attached to lead(s) and inserted into pocket. 15:41:35 Device pocket was irrigated with Ancef. 15:41:59 Parameters-- Generator: Mode: DDDR. Lower Rate: 60bpm. Upper Rate: 130bpm. 15:42:50 Parameters--Ventricular P/R Wave: 10.6mV. Current: 0.1mA; Threshold: 0.5V; Impedence: 1516OHMS. 15:43:14 Subcutaneous closure was completed with 3-0 vicryl plus. 15:45:56 Skin closure was completed with 5-0 monocryl. 15:46:02 Lt Chest incision was dressed with 4 x 4 and Tegaderm. 15:46:06 Procedure ended.(Physican Out) 15:48:24 Fluoroscopy time 01.20 minutes. 15:48:30 Fluoroscopy dose: 21.46 mGy 15:48:30 Flurop Dose total: 21.46 15:48:32 Contrast amount:Isovue 300 0ml. 15:48:34 Sharps counted by scrub and verified by R.N. 15:48:56 Post sharps counted by scrub and verified by RN: Sutures: 7; Sponges: 5; Stick needles: 2; Skin needles: 2; Blade: 1; Cautery: 1 15:49:01 Insertion/operative site no bleeding no hematoma. 15:49:05 Post-op/insertion site Left Subclavian vein dressed using a Mepilex dressing. 15:49:11 Post left subclavian vein:stable, soft, clean and dry 15:49:15 Post Procedure Pulses reassessed and unchanged 15:49:17 Post-procedure physical assessment completed. ASA score P 2 - A patient with mild systemic disease as per Vipul Hernandez MD. 15:49:21 Post procedure rhythm: paced 15:49:24 Estimated blood loss: 5 ml 15:49:25 Post procedure instruction explained to patient.Patient verbalizes understanding. 15:49:26 Patient needs reinforcement of post procedure teaching. 15:49:55 Procedure type changed to Cath procedure, Diagnostic procedure, PPM/ICD, PPM Dual Implant, Sedation Charges, Moderate Sedation up to 15 minutes 15:50:14 Procedure and supply charges have been captured, reviewed, submitted and are correct. 15:50:20 Procedure Complication : No complications 15:50:22 Vital chart was stopped 15:50:22 See physician's report for complete and final results. 15:50:42 Report given to PCU. 15:50:45 Patient transfered to PCU with Stretcher. 15:50:46 Procedure ended. 15:50:46 Full Disclosure recording stopped 15:50:51 End room use (Document Last) Device Usage Item Name Manufacture Quantity Catalog Hospital Part Current Minimal Lot# / Number Charge Number Stock Stock Serial# Code Immobilizer Cardinal 1 [id number] 5 [facility] Mepilex Cardinal 1 [id number] 300508 [id number] [id number] 5 [facility] ([id number]) Cautery Microtek 1 [id number] 121562 44674 [id number] 5 [employer] Pencil Cautery Tip Microtek 1 [id number] 462499 566329 402844 5 Appointment Sched[employer] 5-0 Monocryl Ethicon 1 Y495G 836996 791968 345828 5 PS2 Y495G 3-0 Vicryl Ethicon 1 [id number] 260763 667453 888520 5 Single Pack [id number] 2-0 Ticron Ethicon 0 [id number] 395664 06606 222386 5 Multipack ([id number]) Medtronic Medtronic 1 [id number] 043734 086956 5 [id number] Adapta PPM EXP3-28-19 Dual Generator ADDR01 Medtronic Medtronic 1 4574-45 872868 169457 5 [id number] 4574-45 PPM EXP9-18-20 Lead Medtronic Medtronic 1 4074-52 711594 378350 5 [id number] 4-52 PPM EXP8-27-20 Lead Signature Audit [place] Stage Time Signature Unsigned Intra-Procedure 02/09/2018 Tuan Franco 3:51:25 PM RT(R) Signatures Monitor : Chaz Sena RT Signature : Date : Time : Monitor : Tuan Franco RT Signature : Date : Time : [address] [place] [address]
[~2018-02-09 11:52] MED LIST changes: +ASPIRIN81 MG PO
[2018-02-09 12:13] VITALS: BP 94/65; BMI 28.2
[2018-02-09 12:42] LABS: ANION GAP 12.9 mmol/L (8-16); CALCIUM 9.1 mg/dL (8.5-10.1); CARBON DIOXIDE 28.7 mmol/L (21.0-32.0); CREATININE - SERUM 1.5 mg/dL (0.6-1.3); POTASSIUM - SERUM 4.6 mmol/L (3.5-5.1)
[2018-02-09 12:49] LABS: BASOPHILS 0.4 % (0-2); EOSINOPHILS 1.8 % (0-7); HEMATOCRIT 43.3 % (36.0-48.0); HEMOGLOBIN 14.6 g/dL (12-16); IMMATURE GRANULOCYTES 0.3 % (0-5); LYMPHOCYTES 24.4 % (15-50); MCH 31.1 pg (26.0-34.0); MCHC 33.7 g/dL (31.0-37.0); MCV 92.1 fL (80.0-100.0); MEAN PLATELET VOLUME 11.8 fL (7.4-10.4); MONOCYTES 11.4 % (2-11); NEUTROPHILS 61.7 % (40-80); PLATELET COUNT 218 10x3/uL (130-400); RDW 14.3 % (11.5-14.5); WBC 7.2 10x3/uL (4.8-10.8)
[2018-02-09 13:00] LABS: INR 1.17 (0.85-1.17); PROTIME 14.4 SECONDS (11.6-15.0)
[2018-02-09 16:43] VITALS: BP 143/74; Ht 170.2 cm; Wt 84.5 kg
[2018-02-09 17:00] VITALS: BP 143/72; BP 173/72
[2018-02-09 20:48] VITALS: BP 148/64
[2018-02-10 01:06] VITALS: BP 128/69
[2018-02-10 05:11] VITALS: BP 132/76
[2018-02-10 07:57] VITALS: BP 135/74
== END 2018-02-10 10:53 | disposition home or self-care (01) ==
LOC: D.CATH 11:52 → D.M2 16:20 → D.CATH 02-10 10:53
PROVIDERS: Internal Medicine Cardiovascular Disease
DX: I49.5 Sick sinus syndrome (principal); I25.10 Atherosclerotic heart disease of native coronary artery without angina pectoris; I10 Essential (primary) hypertension; E78.5 Hyperlipidemia, unspecified; Z01.812 Encounter for preprocedural laboratory examination

== ENCOUNTER 2018-04-20 11:24 | Outpatient (CLI) | payer MEDICARE, OTHER ==
[~2018-04-20] VITALS: Ht 170.2 cm; Wt 80.9 kg
--- NOTE | ~2018-04-20 | HEMODYNAMI ---
PATIENT:EWELINA HERRON MEDICAL RECORD: [id number] : 35 LOCATION:[facility] ADMISSION DATE: 04/20/18 Generatedon:04/20/201813:51 Patient name: EWELINA HERRON Patient #: [id number] SSN: : 1935 Date of study: 04/20/2018 Page: Of Hemodynamic Procedure Report Patient Data Patient Demographics Procedure consent was obtained First Name: EWELINA Gender: Female Last Name: GERMAINE : 1935 [facility] Initial: [place] Age: 83 year(s) Patient #: [id number] Race: Unknown Additional ID: [id number] Contact details Address: [address] [place] [address] State: [place] City: [place] Zip code: [address] Past Medical History Allergies Allergen Reaction Date Comments Reported Other allergy 07/27/2017 Sulfa Other allergy 04/20/2018 sulfa Admission Admission Data Admission Date: 04/20/2018 Admission Time: 11:24 Admit Source: Other Lab Results Lab Result Date: 04/20/2018 Lab Result Time: 0:00 Biochemistry Name Units Result Min Max BUN mg/dl 30 --(----)-* 7 18 Creatinine mg/dl 1.7 --(----)-* 0.6 1.3 CBC Name Units Result Min Max Hematocrit % 44.9 --(*---)-- 42 54 Hemoglobin g/dl 14.7 --(-*--)-- 13.5 17.5 Procedure Procedure Types Cath Procedure Diagnostic Procedure Cardioversion External Procedure Description Procedure Date Procedure Date: 04/20/2018 Procedure Start Time: 13:38 Procedure End Time: 13:50 Procedure Staff Name Function Len Peraza MD Performing Physician Tuan Franco RT Monitor Klever Hernandez RN Nurse Supa Katz CRNA Additional personnel Procedure Data Cath Procedure Fluoroscopy Diagnostic fluoroscopy Total fluoroscopy Time: 0 time: 0 min min Diagnostic fluoroscopy Total fluoroscopy dose: 0 dose: 0 mGy mGy Contrast Material Contrast Material Type Amount (ml) Isovue 300 0 Estimated blood loss: 0 ml Procedure Complications No complications Hemodynamics Rest HGB: 14.7 (g/dl) Heart Rate: 78 (bpm) Snapshots Pre Cath Intra NCS Post Cath Vital Signs Time Heart Resp SPO2 etCO2 NIBP (mmHg) Rhythm Pain Sedation Rate (ipm) (%) (mmHg) Status Level (bpm) 13:34:46 77 11 98 0 162/104(134) NSR 0 (11) 10(A) , No pain 13:39:45 82 23 95 0 Measuring NSR 0 (11) 10(A) , No pain 13:40:01 77 27 95 0 109/88(100) NSR 0 (11) 10(A) , No pain 13:44:15 60 19 90 0 129/70(100) NSR 0 (11) 10(A) , No pain 13:48:32 62 16 96 0 137/75(94) NSR 0 (11) 10(A) , No pain Procedure Log Time Note 13:14:13 Informed consent obtained and on chart 13:14:16 Admit Source: Other 13:14:30 Diagnostic Cath status Elective 13:14:31 Time tracking: Regular hours (M-F 7:00 - 5:00) 13:14:34 Plan of Care:Hemodynamics will remain stable., Cardiac rhythm will remain stable., Comfort level will be maintained., Respiratory function will remain adequate., Patient/ family verbilizes understanding of procedure., Procedure tolerated without complication., Recovers from procedure without complications.. 13:14:38 Tuan Franco RT(R) sent for patient. Start room use. 13:15:13 Supa Katz CRNA present and monitoring patient for TIVA. 13:22:06 H&P Date Dictated: 04/19/2018 Within 30 days and on chart., H&P Addendum completed by physician on day of procedure. (MUST COMPLETE FOR ALL OUTPATIENTS). 13:22:38 Lab Result : BUN 30 mg/dl 13::38 Lab Result : Creatinine 1.7 mg/dl 13:22:38 Lab Result : Hemoglobin 14.7 g/dl 13::38 Lab Result : Hematocrit 44.9 % 13:22:40 Lab results completed and on chart. 13:26:44 Patient arrived from Pre/Post Procedure Room to [facility] 3. Patient remains on bed/stretcher for procedure. 13:26:46 Warm blankets applied, and carl hugger turned on for patient comfort. 13:26:46 Correct patient and procedure confirmed by team. 13:26:47 ECG and BP/O2 sat monitors applied to patient. 13:26:47 Pre-procedure instructions explained to patient. 13:26:48 Pre-op teaching completed and patient verbalized understanding. 13:26:49 Family in waiting room. 13:26:49 Patient NPO since Midnight. 13:26:58 Patient allergic to Other allergysulfa 13:33:33 Vital chart was started 13:34:00 Baseline sample Acquired. 13:34:04 Rhythm: atrial fibrillation 13:34:05 Full Disclosure recording started 13:34:35 [employer] sales representative church furniture jonathan schneider present for procedure. 13:34:41 Quick Combo opened to sterile field. 13:34:45 Quick combo pads placed on patients chest and back. 13:34:53 Previous problem with sedation/anesthesia? No ? 13:34:53 Snore? No 13:34:54 Sleep apnea? No 13:34:55 Deviated septum? No 13:34:55 Opens mouth fully? Yes 13:34:56 Sticks out tongue? Yes 13:34:57 Airway obstruction? No ? 13:35:01 Dentures? Yes partial in tight 13:35:05 Is the patient allergic to Iodine/contrast media? No. 13:35:06 Is patient on blood thinner?Yes 13:35:08 ACC The patient was administered the following blood thiners within the last 24 hours: Xarelto 13:35:11 Patient diabetic? No. 13:37:02 Sedation plan: TIVA Medication:Propofol 13:37:02 Physical assessment completed. ASA score P 3 - A patient with severe systemic disease as per Len Peraza MD. 13:37:02 --------ALL STOP TIME OUT------ 13:37:02 Final Timeout: patient, procedure, and site verified with staff and physician. All members of the team are in agreement. 13:37:18 Fire Safety Assessment: B--The operative or invasive procedure is being performed above the xiphoid process or in the oropharynx., C--Open oxygen or nitrous oxide is being used. 13:38:59 Procedure started. 13:39:53 Defibrillator synced and charged to 200 Joules. 13:40:01 Shock delivered. 13:40:28 Patient cardioverted to sinus rhythm , paced. 13:40:58 Procedure ended.(Physican Out) 13:42:08 Fluoroscopy time 00.00 minutes. 13:42:12 Fluoroscopy dose: 0 mGy 13:42:12 Flurop Dose total: 0 13:42:14 Contrast amount:Isovue 300 0ml. 13:43:08 Post-procedure physical assessment completed. ASA score P 3 - A patient with severe systemic disease as per Len Peraza MD. 13:44:16 Post procedure rhythm: sinus rhythm , paced 13:44:18 Estimated blood loss: 0 ml 13:44:18 Post procedure instruction explained to patient.Patient verbalizes understanding. 13:44:19 Patient needs reinforcement of post procedure teaching. 13:44:32 Procedure and supply charges have been captured, reviewed, submitted and are correct. 13:44:34 Procedure Complication : No complications 13:50:17 Vital chart was stopped 13:50:17 See physician's report for complete and final results. 13:50:18 Report given to Pre/Post Procedure Room. 13:50:21 Patient transfered to Pre/Post Procedure Room with Stretcher. 13:50:27 Procedure ended. 13:50:27 Full Disclosure recording stopped 13:50:32 End room use (Document Last) Device Usage Item Manufacture Quantity Catalog Hospital Part Current Minimal Lot# / Name Number Charge Number Stock Jyothi tovar# Code MOgene 1 [id number] Combo Signature Audit [place] Stage Time Signature Unsigned Intra-Procedure 04/20/2018 Tuan Franco 1:51:24 PM RT(R) Signatures Monitor : Tuan Franco RT Signature : Date : Time : [facility] [address] [place] [address]
[2018-04-20] MEDS ORDERED: VITAMIN D5000 UNIT PO (11:42)
[2018-04-20 11:51] VITALS: BP 137/68; Ht 170.2 cm; Wt 80.9 kg
[2018-04-20 12:10] LABS: BASOPHILS 0.4 % (0-2); EOSINOPHILS 0.7 % (0-7); HEMATOCRIT 44.9 % (36.0-48.0); HEMOGLOBIN 14.7 g/dL (12-16); IMMATURE GRANULOCYTES 0.1 % (0-5); LYMPHOCYTES 13.6 % (15-50); MCH 30.2 pg (26.0-34.0); MCHC 32.7 g/dL (31.0-37.0); MCV 92.2 fL (80.0-100.0); MEAN PLATELET VOLUME 12.2 fL (7.4-10.4); MONOCYTES 8.3 % (2-11); NEUTROPHILS 76.9 % (40-80); PLATELET COUNT 224 10x3/uL (130-400); RBC 4.87 10x6/uL (4.00-5.40); RDW 13.7 % (11.5-14.5); WBC 7.1 10x3/uL (4.8-10.8)
[2018-04-20 12:24] LABS: ANION GAP 13.5 mmol/L (8-16); CALCIUM 9.4 mg/dL (8.5-10.1); CARBON DIOXIDE 27.9 mmol/L (21.0-32.0); CREATININE - SERUM 1.7 mg/dL (0.6-1.3); POTASSIUM - SERUM 4.4 mmol/L (3.5-5.1)
[2018-04-20 12:35] LABS: INR 1.97 (0.85-1.17); PROTIME 21.7 SECONDS (11.6-15.0)
--- NOTE | 2018-04-20 14:10 | NUR ---
PATIENT AWAKE, SITTING UP IN BED. VSS ON ROOM AIR. ON CM. NO C/O PAIN, NUMBNESS, OR TINGLING. DRINKING JUICE, NO N/V.
--- NOTE | 2018-04-20 14:50 | NUR ---
PATIENT IV REMOVED. VSS ON ROOM AIR. EDUCATION GIVEN TO PATIENT AND SPOUSE REGARDING DISCHARGE INSTRUCTIONS, ALL QUESTIONS ANSWERED.
--- NOTE | 2018-04-20 15:05 | NUR ---
PATIENT DRESSED, ABLE TO VOID WITH NO DIFFICULTIES. PATIENT STATES THAT DAUGHTER IS HAVING CAR TROUBLE AND WILL BE LATE PICKING HER UP.
--- NOTE | 2018-04-20 15:25 | NUR ---
PATIENT TRANSPORTED VIA WHEELCHAIR TO CAR WITH DAUGHTER DRIVING, ALL BELONGINGS WITH PATIENT.
== END 2018-04-20 15:25 ==
LOC: D.CATH 11:24
PROVIDERS: Internal Medicine Cardiovascular Disease
DX: I48.91 Unspecified atrial fibrillation (principal); Z95.0 Presence of cardiac pacemaker

== ENCOUNTER 2018-06-15 22:15 | Inpatient (IN) | payer MEDICARE, OTHER ==
[~2018-06-15] VITALS: Ht 170.2 cm; Wt 79.5 kg
[~2018-06-15 22:15] MED LIST changes: +VITAMIN D5000 UNIT PO
[2018-06-15 23:08] LABS: BASOPHILS 0.2 % (0-2); EOSINOPHILS 1.2 % (0-7); HEMATOCRIT 38.8 % (36.0-48.0); HEMOGLOBIN 12.4 g/dL (12-16); IMMATURE GRANULOCYTES 0.3 % (0-5); MCH 28.9 pg (26.0-34.0); MCV 90.4 fL (80.0-100.0); MONOCYTES 8.8 % (2-11); NEUTROPHILS 80.5 % (40-80); PLATELET COUNT 209 10x3/uL (130-400); RBC 4.29 10x6/uL (4.00-5.40); RDW 14.4 % (11.5-14.5); WBC 9.8 10x3/uL (4.8-10.8)
[2018-06-15 23:18] LABS: ALBUMIN 3.6 g/dL (3.4-5.0); ALKALINE PHOSPHATASE 78 U/L (46-116); ALT (SGPT) 117 U/L (10-68); BILIRUBIN - TOTAL 0.59 mg/dL (0.2-1.3); CALC OSMOLALITY 295 mosm/kg (275-300); CALCIUM 8.5 mg/dL (8.5-10.1); CARBON DIOXIDE 29.4 mmol/L (21.0-32.0); CHLORIDE - SERUM 102 mmol/L (98-107); CREATININE - SERUM 1.9 mg/dL (0.6-1.3); GLUCOSE 184 mg/dL (74-106); POTASSIUM - SERUM 3.8 mmol/L (3.5-5.1); PROTEIN - SERUM 6.9 g/dL (6.4-8.2); SODIUM 142 mmol/L (136-145); UREA NITROGEN 36 mg/dL (7-18); eGFR NON AFRICAN AMERICAN 27 mL/min (90-120)
[2018-06-15 23:20] LABS: APTT 36.5 SECONDS (22.8-39.4); INR 3.05 (0.85-1.17); PROTIME 30.8 SECONDS (11.6-15.0)
[2018-06-15 23:28] LABS: CKMB 1.5 U/L (0.0-3.6); CREATINE KINASE 140 UL (21-215); MAGNESIUM - SERUM 1.9 mg/dL (1.8-2.4)
[2018-06-16] VITALS (10 sets, daily range): BP systolic 102–120; BP diastolic 51–65; Ht 170.2 cm; Wt 79.5 kg
--- NOTE | 2018-06-16 01:54 | NUR ---
PT LYING IN BED. NO DISTRESS NOTED. DENIES NEEDS AT THIS TIME
[2018-06-16 02:15] LABS: APPEARANCE CLEAR (CLEAR); BILIRUBIN NEGATIVE (NEGATIVE); COLOR YELLOW (YELLOW); GLUCOSE NEGATIVE (NEGATIVE); KETONE NEGATIVE (NEGATIVE); NITRITE NEGATIVE (NEGATIVE); PROTEIN NEGATIVE (NEGATIVE); UROBILINOGEN NORMAL (NORMAL)
--- NOTE | 2018-06-16 03:00 | NUR ---
PT ARRIVED TO FLOOR VIA STRETCHER. ALERT AND ORIENTED. AT BEDSIDE. PT IS UP WITH ASSIST TO BATHROOM D/T UNSTEADY GAIT AND DIZZINESS. IV LEFT FA INFUSING NS @ 75. RIGHT KNEE SORE TO MOVE. BRUISING TO RIGHT FOOT. ABRASION TO RIGHT ELBOW, WRAPPED IN KERLEX. SKIN TEAR TO RIGHT THUMB, APPLIED BANDAID. PT DENIES PAIN. GAVE WATER REQUESTED. DENIES OTHER NEEDS AT THIS TIME. CL IN REACH, SHAYY ON. WILL CONT TO MONITOR
--- NOTE | 2018-06-16 09:04 | NUR ---
PT LYING IN BED, ASSISTED PT TO RESTROOM, PT STATED DIZZINESS AND JERKING IN HER ARMS STARTED AFTER TAKING NEW MEDS PRESCRIBED BY DR SIMS. BRUISES AND SCRAPES NOTED ON PT RT SIDE, SPOUSE AT [facility], CONTINUE WITH PLAN OF CARE
--- NOTE | 2018-06-16 14:12 | NUR ---
PLACED TELEMETRY ON PT, PT IS 66 PACING, CONTINUE WITH PLAN OF CARE. PT ORTHOSTATIC BP IS 111/56 LYING, 106/56 SITTING AND STANDING IS 115/42 AT 1230 VITALS, CONTINUE WITH PLAN OF CARE
--- NOTE | 2018-06-16 15:22 | NUR ---
I have reviewed this patient and I concur with the Shift Assessment completed by the Licensed Practical Nurse today this shift.
--- NOTE | 2018-06-16 16:03 | NUR ---
ASSITED PT BACK FROM RESTROOM TO BED. HALF WAY TO THE BED HER LEGS WENT WEAK AND GAVE OUT ON HER HAD TO HOLD PT UP AND ADVISED HER TO STAND STILL UNTIL FULLY REGAINED BALANCE. START TO WALK AGAIN AND BOTH LEGS WENT "LIMP LIKE NOODLES" PER PT. TURNED QUICKLY AND GOT HER BACK ON BED. SHE AND SPOUSE STATED THIS IS WHAT HAPPENED YESTERDAY, LEGS WENT LIMP AND STARTED TO JERK AND SHE COULD NOT STAND STRAIGHT AND FELL, CALLED MONITORS AND PER DONNA WINE MASTER PT IS PACING AT 88. TURNED ON BED ALARM AND GOT PT SITUATED IN BED AND RELAYED INCIDENT TO FORMING YARDAGE CONTROL OPERATOR AND DR AGUILERA. CONTINUE WITH PLAN OF CARE
[2018-06-17 01:32] VITALS: BP 112/60
[2018-06-17 05:18] VITALS: BP 124/74
[2018-06-17 07:12] LABS: BASOPHILS 0.6 % (0-2); EOSINOPHILS 3.2 % (0-7); HEMATOCRIT 37.1 % (36.0-48.0); HEMOGLOBIN 11.6 g/dL (12-16); IMMATURE GRANULOCYTES 0.4 % (0-5); LYMPHOCYTES 13.6 % (15-50); MCH 28.6 pg (26.0-34.0); MCHC 31.3 g/dL (31.0-37.0); MCV 91.4 fL (80.0-100.0); MEAN PLATELET VOLUME 12.1 fL (7.4-10.4); MONOCYTES 9.5 % (2-11); NEUTROPHILS 72.7 % (40-80); PLATELET COUNT 198 10x3/uL (130-400); RBC 4.06 10x6/uL (4.00-5.40); RDW 14.6 % (11.5-14.5); WBC 8.4 10x3/uL (4.8-10.8)
[2018-06-17 07:49] LABS: ALBUMIN 3.2 g/dL (3.4-5.0); ANION GAP 12.8 mmol/L (8-16); BILIRUBIN - TOTAL 0.89 mg/dL (0.2-1.3); CALCIUM 8.4 mg/dL (8.5-10.1); CARBON DIOXIDE 27.9 mmol/L (21.0-32.0); POTASSIUM - SERUM 3.7 mmol/L (3.5-5.1); PROTEIN - SERUM 6.5 g/dL (6.4-8.2); T4 THYROXIN - FREE 1.48 ng/dL (0.76-1.46); THYROID STIMULATING HORMONE 5.35 uIU/mL (0.36-3.74)
[2018-06-17 07:50] LABS: CREATININE - SERUM 1.4 mg/dL (0.6-1.3)
[2018-06-17 09:19] VITALS: BP 110/61
--- NOTE | 2018-06-17 11:38 | NUR ---
Rehab Note- Acute Inpatient Rehab prescreen order received. The patient has a pending PT and OT, will await and see the patient's functional mobility. Will follow at this time. Thank you for this referral! Cassie Crawley RN Clinical Liaison, [facility] Rehab
[2018-06-17 12:27] VITALS: BP 117/66
[2018-06-17] MEDS ORDERED: TOPROL XL25 MG PO (13:57)
[2018-06-17] MEDS ORDERED: HYDROCODON-ACE1 EAC7 PO (13:57)
[2018-06-17] MEDS ORDERED: PROTONIX40 MG PO (13:58)
--- NOTE | 2018-06-17 16:09 | MORECARE ---
CASE MANAGEMENT DISCHARGE SUMMARY PATIENT: EWELINA HERRON UNIT: [id number] ADM DATE: 06/16/18 AGE: 83 : 35 SEX: F ROOM/BED: D.2216 AUTHOR: NEO GARCÍA PHYSICIAN: REFERRING PHYSICIAN: LISA MCMILLAN MD DATE OF SERVICE: 06/17/18 Discharge Plan Patient Name: EWELINA HERRON [facility] [facility] 1935 Planned Disposition: Inpatient Rehab Anticipated Discharge Date: Discharge Date: Expected LOS: Initial Reviewer: [email or web address] Initial Review Date: 06/16/2018 Generated: 06/17/18 5:09 pm DCPIA - Discharge Planning Initial Assessment Updated by [email or web address]: Brooke Hooks on 06/17/18 4:09 pm * Is the patient Alert and Oriented? Yes * How many steps to enter\exit or inside your home? * PCP REYNOSO * Pharmacy [facility] [address] * Preadmission Environment Home Alone * ADLs Independent * Equipment None * List name and contact numbers for known caregivers / representatives who currently or will assist patient after discharge: ALESSANDRA LEE * Verbal permission to speak to the caregivers and representatives has been obtained from the patient. N/A * Community resources currently utilized None * Additional services required to return to the preadmission environment? Yes * Can the patient safely return to the preadmission environment? Yes * Has this patient been hospitalized within the prior 30 days at any hospital? No Patient Name: EWELINA HERRON Page [id number] at 1609 All edits/amendments must be made on the electronic document DICTATION DATE: 06/17/181607 LAMINATOR PREFORMS: PATTI 06/17/18 160 RPT#: [id number] CT DATE: STATUS: ADM IN [facility] [address] [place] [address] END OF REPORT
--- NOTE | 2018-06-17 16:17 | MORECARE ---
CASE MANAGEMENT DISCHARGE SUMMARY PATIENT: EWELINA HERRON UNIT: [id number] ADM DATE: 06/16/18 AGE: 83 : 35 SEX: F ROOM/BED: D.2216 AUTHOR: RICKYDOC PHYSICIAN: REFERRING PHYSICIAN: LISA MCMILLAN MD DATE OF SERVICE: 06/17/18 Discharge Plan Patient Name: EWELINA HERRON Facility: [facility]:[place] : 1935 Planned Disposition: Inpatient Rehab Anticipated Discharge Date: Discharge Date: Expected LOS: Initial Reviewer: [email or web address] Initial Review Date: 06/16/2018 Generated: 06/17/18 5:17 pm Comments DCP- Discharge Planning Updated by [email or web address]: Brooke Hooks on 06/17/18 3:[address] Patient Name: EWELINA HERRON Admission Status: ER Accout number: [id number] Admission Date: 06-16-2018 : 1935 Admission Diagnosis: Attending: HIPOLITO, Current LOS: 1 Anticipated DC Date: Planned Disposition: Inpatient Rehab Primary Insurance: MEDICARE A & B Discharge Planning Comments: CM met with patient to complete initial dc planning assessment. CM educated patient on the CM role and verbal consent given by patient to complete assessment. Patient lives at home where she is independent with her care. At discharge patient will be going to inpatient rehab at [facility]. Patient does not have or use any DME. Her daughter will be her truck driver heavy home. Patient denied known discharge needs at this time. CM will continue to follow and will assist as needed with dc plans/needs. Nutrition Professor: Brooke Hooks DCPIA - Discharge Planning Initial Assessment Updated by [email or web address]: Brooke Hooks on 06/17/18 4:09 pm * Is the patient Alert and Oriented? Yes * How many steps to enter\exit or inside your home? * PCP REYNOSO * Pharmacy [facility] [address] * Preadmission Environment Home Alone * ADLs Independent * Equipment None * List name and contact numbers for known caregivers / representatives who currently or will assist patient after discharge: ALESSANDRA LEE * Verbal permission to speak to the caregivers and representatives has been obtained from the patient. N/A * Community resources currently utilized None * Additional services required to return to the preadmission environment? Yes * Can the patient safely return to the preadmission environment? Yes * Has this patient been hospitalized within the prior 30 days at any hospital? No Last DP export: 06/17/18 3:09 pm Patient Name: EWELINA HERRON Page [id number] at 1617 All edits/amendments must be made on the electronic document DICTATION DATE: 06/17/181616 VELVET STEAMER: PATTI 06/17/181616 RPT#: [id number] DC DATE: STATUS: ADM IN [facility] [address] [place] [address] END OF REPORT
--- NOTE | 2018-06-21 13:59 | MORECARE ---
CASE MANAGEMENT DISCHARGE SUMMARY PATIENT: EWELINA HERRON UNIT: [id number] ADM DATE: 06/16/18 AGE: 83 : 35 SEX: F ROOM/BED: D.2216 AUTHOR: RICKYDOC PHYSICIAN: REFERRING PHYSICIAN: LISA MCMILLAN MD DATE OF SERVICE: 06/21/18 Discharge Plan Patient Name: EWELINA HERRON Facility: [facility]:[place] : 1935 Planned Disposition: Inpatient Rehab Anticipated Discharge Date: Discharge Date: 06/17/2018 Expected LOS: 0 Initial Reviewer: [email or web address] Initial Review Date: 06/16/2018 Generated: 06/21/18 2:59 pm Comments DCP- Discharge Planning Updated by [email or web address]: Brooke Hooks on 06/17/18 3:[address] Patient Name: EWELINA HERRON Admission Status: ER Accout number: [id number] Admission Date: 06-16-2018 : 1935 Admission Diagnosis: Attending: HIPOLITO, Current LOS: 1 Anticipated DC Date: Planned Disposition: Inpatient Rehab Primary Insurance: MEDICARE A & B Discharge Planning Comments: CM met with patient to complete initial dc planning assessment. CM educated patient on the CM role and verbal consent given by patient to complete assessment. Patient lives at home where she is independent with her care. At discharge patient will be going to inpatient rehab at [facility]. Patient does not have or use any DME. Her daughter will be her route sales delivery drivers supervisor home. Patient denied known discharge needs at this time. CM will continue to follow and will assist as needed with dc plans/needs. Dust Collector Attendant: Brooke Hooks DCPIA - Discharge Planning Initial Assessment Updated by [email or web address]: Brooke Hooks on 06/17/18 4:09 pm * Is the patient Alert and Oriented? Yes * How many steps to enter\exit or inside your home? * PCP REYNOSO * Pharmacy [facility] [address] * Preadmission Environment Home Alone * ADLs Independent * Equipment None * List name and contact numbers for known caregivers / representatives who currently or will assist patient after discharge: ALESSANDRA LEE * Verbal permission to speak to the caregivers and representatives has been obtained from the patient. N/A * Community resources currently utilized None * Additional services required to return to the preadmission environment? Yes * Can the patient safely return to the preadmission environment? Yes * Has this patient been hospitalized within the prior 30 days at any hospital? No Last DP export: 06/17/18 3:17 pm Patient Name: EWELINA HERRON Page [phone] at 1359 All edits/amendments must be made on the electronic document DICTATION DATE: 06/21/18 1350 PROTOTYPE ENGINEER: PATTI 06/21/18 1359 RPT#: [id number] DC DATE:06/17/18 STATUS: DIS IN [facility] [id number] [place] [address] END OF REPORT
== END 2018-06-17 16:49 | DRG 312 ==
LOC: D.ER 22:15 → OBSVTIME 06-16 02:02 → D.MS 06-16 02:02
PROVIDERS: Family Medicine; ADMIT Family Medicine; ATTEND Family Medicine
DX: R55 Syncope and collapse (principal); I42.9 Cardiomyopathy, unspecified; E86.9 Volume depletion, unspecified; W01.0XXA Fall on same level from slipping, tripping and stumbling without subsequent striking against object, initial encounter; Y92.019 Unspecified place in single-family (private) house as the place of occurrence of the external cause; E03.9 Hypothyroidism, unspecified; I50.9 Heart failure, unspecified; Z95.0 Presence of cardiac pacemaker; M81.0 Age-related osteoporosis without current pathological fracture; M19.90 Unspecified osteoarthritis, unspecified site; I25.10 Atherosclerotic heart disease of native coronary artery without angina pectoris; I34.0 Nonrheumatic mitral (valve) insufficiency; T50.2X5A Adverse effect of carbonic-anhydrase inhibitors, benzothiadiazides and other diuretics, initial encounter; Z87.891 Personal history of nicotine dependence

== ENCOUNTER 2018-06-17 16:49 | Inpatient (IN) | payer MEDICARE, OTHER ==
[~2018-06-17] VITALS: Ht 170.2 cm; Wt 78.9 kg
[~2018-06-17 16:49] MED LIST changes: +HYDROCODON-ACE1 EAC7 PO; +PROTONIX40 MG PO; +TOPROL XL25 MG PO
[2018-06-17 17:56] VITALS: BP 116/70; BMI 27.3
[2018-06-17 19:00] VITALS: BP 116/70
--- NOTE | 2018-06-17 19:28 | NUR ---
PT LYING IN BED WATCHING TV. CALL LIGHT IN REACH. PT DENIES NEEDS OR PAIN AT THIS TIME. BED IN LOW SIDE RAILS X2. A/O X4. BOWEL ACTIVE X4. RESP EVEN AND UNLABORED. PT HAS PACEMAKER. CONT OF BOWEL AND BLADDER. MIN ASSIST TO BATHROOM. ABRASION TO R ELBOW APPLIED BANDAID. WILL CONTINUE TO MONITOR.
--- NOTE | 2018-06-18 01:02 | NUR ---
RESTING IN BED WITH RESPIRATIONS UNLABORED AND NO DISTRESS NOTED. CALL LIGHT IN REACH.
--- NOTE | 2018-06-18 04:54 | NUR ---
PT LYING IN BED EYES CLOSED. NO SIGNS OF DISTRESS OR PAIN. BED IN LOW. CALL LIGHT IN REACH. RESP EVEN AND UNLABORED. WCTM
[2018-06-18 07:34] LABS: BASOPHILS 0.6 % (0-2); EOSINOPHILS 1.8 % (0-7); HEMATOCRIT 35.3 % (36.0-48.0); HEMOGLOBIN 11.4 g/dL (12-16); IMMATURE GRANULOCYTES 0.1 % (0-5); LYMPHOCYTES 13.5 % (15-50); MCH 29.1 pg (26.0-34.0); MCHC 32.3 g/dL (31.0-37.0); MCV 90.1 fL (80.0-100.0); MEAN PLATELET VOLUME 12.9 fL (7.4-10.4); MONOCYTES 10.8 % (2-11); NEUTROPHILS 73.2 % (40-80); RBC 3.92 10x6/uL (4.00-5.40); RDW 14.9 % (11.5-14.5); WBC 9.1 10x3/uL (4.8-10.8)
[2018-06-18 07:36] LABS: PLATELET COUNT 143 10x3/uL (130-400)
[2018-06-18 08:00] VITALS: BP 122/68
[2018-06-18 09:23] LABS: ANION GAP 12.3 mmol/L (8-16); CALCIUM 8.3 mg/dL (8.5-10.1); CARBON DIOXIDE 24.7 mmol/L (21.0-32.0); CREATININE - SERUM 1.4 mg/dL (0.6-1.3)
--- NOTE | 2018-06-18 09:31 | NUR ---
PATIENT ADMITTED TO REHAB FROM ACUTE FLOOR. HER PCP IS DR. REYNOSO. SHE HAS NO DME AT HOME AND HAS NO HOME HEALTH SERVICES. HER DAUGHTER WILL ASSIST HER AT DISCHARGE. WILL CONTINUE TO FOLLOW WITH PATIENT.
[2018-06-18 11:06] VITALS: BMI 27.2
--- NOTE | 2018-06-18 16:00 | NUR ---
RESTING QUIETLY IN BED. CALL LIGHT IN REACH.
--- NOTE | 2018-06-18 17:49 | NUR ---
SITTING ON SIDE OF BED EATING SUPPER. STILL C/O WEAKNESS BUT DENIES INCREASED PAIN. CALL LIGHT IN REACH
--- NOTE | 2018-06-18 19:12 | NUR ---
PATIENT IS RESTING IN HER BED AND WATCHING TV. DENIES ANY NEEDS. BED IS DOWN LOW WITH SIDE RAILS UP X2. CALL LIGHT IN REACH.
[2018-06-18 20:00] VITALS: BP 112/65
--- NOTE | 2018-06-18 21:45 | NUR ---
PATIENT RECIEVED SITTING UP IN BED. PATIENT ASSESSMENT & VITAL SIGNS DONE. PATIENT HAD NO C/O PAIN OR DISTRESS. PATIENT CALL LIGHT & BEDSIDE TABLE WITHIN REACH. WILL CONTINUE TO MONITOR.
--- NOTE | 2018-06-19 01:43 | NUR ---
PATIENT EYES CLOSED.RESPIRATIONS 18 & EVEN. BED LOW. ALARM ON. CALL LIGHT WITHIN REACH. WILL CONTINUE TO MONITOR.
--- NOTE | 2018-06-19 03:57 | NUR ---
PATIENT USED CALL LIGHT FOR TOILETING. PATIENT STATES "I DO THIS ALL NIGHT EVERY NIGHT." PATIENT RETURNED TO BED. CALL LIGHT WITHIN REACH. WILL CONTINUE TO MONITOR.
[2018-06-19 08:00] VITALS: BP 117/69
--- NOTE | 2018-06-19 08:00 | NUR ---
SHIFT ASSMT COMPLETED.UP TO WC FROM BATHROOM.BREAKFAST GIVEN.CL IN REACH.
--- NOTE | 2018-06-19 12:00 | NUR ---
SITTING UP IN WC EATING LUNCH.CL IN REACH.
--- NOTE | 2018-06-19 19:05 | NUR ---
PATIENT IS RESTING IN HER BED AND APPEARS TO BE SLEEPING. BED IS DOWN LOW WITH SIDE RAILS UP X2. CALL LIGHT IS IN REACH.
[2018-06-19 19:35] VITALS: BP 125/72
--- NOTE | 2018-06-19 21:00 | NUR ---
PATIENT RECEIVED SITTING UP IN BED. ASSESSMENT & VITAL SIGNS DONE. PATIENT HAD NO C/O PAIN OR DISTRESS. BEDSIDE TABLE & CALL LIGHT WITHIN REACH. BED LOW. ALARM ON. WILL CONTINUE TO MONITOR.
--- NOTE | 2018-06-20 05:16 | NUR ---
PATIENT USED CALL LIGHT FOR ASSIST TO BATHROOM. PATIENT HAD VOID & BM. PATIENT RETURNED TO BED. CALL LIGHT WITHIN REACH. BED LOW. ALARM ON. WILL CONTINUE TO MONITOR.
[2018-06-20 08:00] VITALS: BP 121/72
--- NOTE | 2018-06-20 08:00 | NUR ---
SHIFT ASSMT COMPLETED.DENIES NEEDS.BREAKFAST GIVEN.CL IN REACH.
--- NOTE | 2018-06-20 12:00 | NUR ---
SITTING ON SIDE OF BED FOR LUNCH.
--- NOTE | 2018-06-20 19:35 | NUR ---
THE PATIENT APPEARED TO BE SLEEPING, BUT EASILY AWOKE WHEN STAFF ENTERED HER ROOM. BED IS IN THE LOW POSITION WITH SIDERAILS X2 AND CALL LIGHT WITHIN REACH. PATIENT DEMONSTRATED APPROPRIATE USE OF A CALL LIGHT. THE PATIENT APPEARS COMFORTABLE WITH NO QUESTIONS OR CONCERNS AT THIS TIME.
[2018-06-20 22:48] VITALS: BP 104/62
--- NOTE | 2018-06-21 02:49 | NUR ---
THE PATIENT IS AWAKE AND TALKING TO STAFF. SHE IS COMPLAINING OF NAUSEA. MEDICATION DELIVERED. THE PATIENT HAS NO OTHER COMPLAINTS OR CONCERNS AT THIS TIME.
[2018-06-21 08:00] VITALS: BP 105/65
[2018-06-21 08:35] LABS: BASOPHILS 0.7 % (0-2); EOSINOPHILS 1.2 % (0-7); HEMATOCRIT 35.2 % (36.0-48.0); HEMOGLOBIN 11.3 g/dL (12-16); IMMATURE GRANULOCYTES 0.6 % (0-5); LYMPHOCYTES 15.4 % (15-50); MCH 28.6 pg (26.0-34.0); MCHC 32.1 g/dL (31.0-37.0); MCV 89.1 fL (80.0-100.0); NEUTROPHILS 72.1 % (40-80); RBC 3.95 10x6/uL (4.00-5.40); RDW 14.9 % (11.5-14.5)
[2018-06-21 08:38] LABS: PLATELET COUNT 254 10x3/uL (130-400)
[2018-06-21 08:47] LABS: ANION GAP 15.3 mmol/L (8-16); CALCIUM 8.6 mg/dL (8.5-10.1); CARBON DIOXIDE 22.8 mmol/L (21.0-32.0); CREATININE - SERUM 1.6 mg/dL (0.6-1.3); POTASSIUM - SERUM 4.1 mmol/L (3.5-5.1)
--- NOTE | 2018-06-21 09:19 | NUR ---
IN ROOM WITH PT. SHE IS ASKING ABOUT HER SOB WITH MIN EXERTION. CALL LIGHT IN REACH
--- NOTE | 2018-06-21 09:58 | RHP ---
PATIENT: EWELINA HERRON MEDICAL RECORD: [id number] ACCOUNT: [id number] LOCATION:[facility]1118 : [birth year] ADMISSION DATE: 06/17/18 REHABILITATION HISTORY AND PHYSICAL EXAMINATION POST ADMISSION PHYSICIAN EXAMINATION DATE OF ADMISSION: 06/17/2018. ADMITTING DIAGNOSIS: Systolic congestive heart failure and also myopathy associated with this. HISTORY OF PRESENT ILLNESS: The patient is an 83-year-old female patient admitted to the acute rehab with systolic congestive heart failure. She presented to the ER on 06/15/2018 after having a syncopal episode and fall at home. She was well-developed and well-nourished at that time. She had gone off the toilet, went over to the scale for daily weight and blacked out, striking her head. She did have a small contusion to her scalp. She did have a mild headache, but no other neurological deficits, does have a history of syncope. She sees Dr. Peraza as her cardiovascular doctor. Her blood pressure was normal at that time, she had normal respirations. CT of her head showed no acute findings. She had no evidence of any type of cervical injury at that time. Previously, she was independent with ADLs and mobility. She lives with her and still drive. She was currently noted to be weak and has increased dyspnea with exertion, generalized weakness, decreased activity tolerance and decreased independence. These are all barriers to her discharge. She has ambulated 4 feet with max assist. She wants to regain her strength to return back home at her prior level of functioning. COMORBIDITIES: In this patient include cardiomyopathy with an EF of 35%, syncope and collapse, AFib, hypotension, systolic heart failure, weakness, fatigue, benign positional vertigo, pacemaker placement, chronic syncope, hyperlipidemia, former tobacco use, osteoporosis, arthritis, and cataracts. PAST MEDICAL HISTORY: Significant for hypothyroidism, arrhythmias. She has had coronary artery disease, syncope, CHF, arthritis, osteoporosis. PAST SURGICAL HISTORY: Includes hysterectomy, cataract surgery, , appendectomy, pacemaker placement. ALLERGIES: SULFA DRUGS. CURRENT MEDICATIONS: Include vitamin D 5000 units, Xarelto 15 mg at dinner. She is on Protonix 40 mg daily. She is on metoprolol 12.5 mg daily, Synthroid 75 mcg daily, furosemide 20 mg daily, aspirin chewable 81 mg daily, and Pravachol 80 mg q.h.s., [place] 5/325 one tab q.4 hours p.r.n. pain, and Zetia 10 mg q.h.s. HABITS: No alcohol or tobacco use, but did smoke years ago. FAMILY HISTORY: Noncontributory. SOCIAL HISTORY: The patient hopes to return back home and get back to her prior level of functioning. REVIEW OF SYSTEMS: HISTORY AND PHYSICAL [id number] GERMAINEEWELINA GAMBINO GENERAL: Does complain of some weakness and fatigue. HEENT: Denies cold, cough, or congestion. CARDIOVASCULAR: Denies chest pain. PHYSICAL EXAMINATION: VITAL SIGNS: Stable, afebrile. GENERAL: A somewhat obese female, in no distress upon exam. HEENT: Normocephalic, atraumatic. Mucosa moist. NECK: Supple, no lymphadenopathy. LUNGS: Clear at this time. No new rales. HEART: Irregular rate and rhythm. ABDOMEN: Benign. EXTREMITIES: No clubbing, cyanosis or edema. NEUROLOGIC: She does have noted weakness. LABORATORY DATA: Her white count is 9.1, H&H of 11 and 35, and platelet count is noted to be 143. Her sodium and other labs are pending. 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 The patient has potential to make improvement. We instituted the following multidisciplinary therapies including, but not limited to physical, occupational, respiratory, speech, nutritional services, prosthetics and orthotics. Given her complex medical condition and risks for more complications, rehabilitation services cannot be provided at a low level of care such as custodial facility. PLAN: 1. Admit to [facility] for intensive inpatient therapy to include the following disciplines: A. Physical therapy to improve gait, all transfer skills and bed mobility to a modified independent level. B. Occupational therapy to improve activities of daily living to a modified independent level. C. Case management to assist with discharge planning and placement options. D. Nutrition to assist with nutritional needs. E. Rehabilitation nursing to assist in monitoring the patient's underling medical condition and to assist with any type of bowel or bladder management. 2. The patient's current medication and medical care will be continued. 3. We will continue on Xarelto for DVT and atrial fibrillation prophylaxis. 4. Continue on Protonix for GI prophylaxis. 5. Continue on current meds and we will follow up again in the a.m. TRANSINT:[id number] Voice Confirmation ID: [id number] DOCUMENT ID: [id number] HILARY notes whether there has been none or any medical/functional change since admission: - No change since pre-admission screen. HILARY attests patient continues to be appropriate for IRF: - Continues to be appropriate. HISTORY AND PHYSICAL [id number] EWELINA HERRON,MARIYA LUNA MD at 0958 CC: [id number] DICTATION DATE: 06/18/18 0859 CUSTOMER MANAGER: 06/18/18 1034 ADM IN [facility] [address] [id number]
--- NOTE | 2018-06-21 11:19 | NUR ---
SITTING IN ROOM WAITING ON THERAPY TO COME GET HER. CALL LIGHT IN REACH
--- NOTE | 2018-06-21 13:41 | NUR ---
Nutrition Follow Up Reviewed chart Pt in therapy at this time Cardiac diet with 83% average po intake past [address] following
--- NOTE | 2018-06-21 13:58 | NUR ---
PATIENT ADMITTED TO REHAB FROM ACUTE FLOOR. HER PCP IS DR. REYNOSO. SHE HAS NO DME OR HOME HEALTH AT THIS TIME. DISCHARGE PLANS ARE FOR PATIENT TO RETURN HOME WITH FAMILY. WILL CONTINUE TO FOLLOW WITH PATIENT.
[2018-06-21 19:00] VITALS: BP 114/60
--- NOTE | 2018-06-21 19:16 | NUR ---
GREETED PATIENT AND INTRODUCED MYSELF HER NURSE FOR THE EVENING . ASSISTED PATIENT TO THE BATHROOM USING THE WHEELCHAIR AND BACK TO BED AND REPOSTIONED FOR COMFORT. PATIENT DENIES ANY FURTHER NEEDS AT THIS TIME. CALL LIGHT IN REACH.
[2018-06-22 08:00] VITALS: BP 111/56
[2018-06-22 08:33] LABS: MAGNESIUM - SERUM 1.8 mg/dL (1.8-2.4); PHOSPHOROUS 3.4 mg/dL (2.5-4.9)
--- NOTE | 2018-06-22 10:12 | NUR ---
IN THERAPY. HAS ALREADY BEEN SEEN BY DR SIMS'S DIAGNOSTIC TECHNICIAN THIS MORNING. RLE LARGER THAN LEFT.
[2018-06-22 15:17] VITALS: Ht 170.2 cm; Wt 78.9 kg
--- NOTE | 2018-06-22 18:07 | NUR ---
STILL HAS POOR APPETITE. YOGI SWARTZ ON BLE ORDERED. PULSE OX BEING MONITORED. HAS NOT DROPPED BELOW 92% ON RA. CALL LIGHT IN REACH
[2018-06-22 19:00] VITALS: BP 120/86
--- NOTE | 2018-06-22 19:19 | NUR ---
PATIENT IS RESTING IN HER BED. SHE PROVIDED A SPUTUM SAMPLE TO BE SENT TO LAB. NO NEEDS AT THIS TIME. BED IS DOWN LOW WITH SIDE RAILS UP AND CALL LIGHT IS IN REACH.
--- NOTE | 2018-06-23 00:04 | NUR ---
PATIENT IS SLEEPING. BED IS DOWN LOW WITH SIDE RAILS UP X2. CALL LIGHT IS IN REACH.
--- NOTE | 2018-06-23 04:06 | NUR ---
PATIENT IS SLEEPING. BED IS DOWN LOW WITH SIDE RAILS UP X2. CALL LIGHT IS IN REACH.
[2018-06-23 07:56] LABS: ANION GAP 10.8 mmol/L (8-16); CALCIUM 8.3 mg/dL (8.5-10.1); CARBON DIOXIDE 27.8 mmol/L (21.0-32.0); CREATININE - SERUM 1.6 mg/dL (0.6-1.3); POTASSIUM - SERUM 3.6 mmol/L (3.5-5.1)
[2018-06-23 08:08] LABS: BASOPHILS 0.4 % (0-2); EOSINOPHILS 1.7 % (0-7); HEMATOCRIT 32.9 % (36.0-48.0); HEMOGLOBIN 10.4 g/dL (12-16); IMMATURE GRANULOCYTES 0.8 % (0-5); LYMPHOCYTES 11.3 % (15-50); MCH 28.8 pg (26.0-34.0); MCHC 31.6 g/dL (31.0-37.0); MEAN PLATELET VOLUME 11.6 fL (7.4-10.4); MONOCYTES 12.6 % (2-11); NEUTROPHILS 73.2 % (40-80); PLATELET COUNT 215 10x3/uL (130-400); RBC 3.61 10x6/uL (4.00-5.40); RDW 15.2 % (11.5-14.5); WBC 8.4 10x3/uL (4.8-10.8)
[2018-06-23 08:11] LABS: MCV 91.1 fL (80.0-100.0)
[2018-06-23 14:03] VITALS: BP 122/50
[2018-06-23 19:00] VITALS: BP 123/71
--- NOTE | 2018-06-23 19:19 | NUR ---
PATIENT IS SITTING UP IN HER WHEELCHAIR NEXT TO HER BED. SHE DENIES ANY NEEDS. CALL LIGHT IS IN REACH.
--- NOTE | 2018-06-24 00:02 | NUR ---
PATIENT IS AWAKE. SHE DENIES ANY NEEDS. HER BED IS DOWN LOW AND CALL LIGHT IS IN REACH.
--- NOTE | 2018-06-24 04:05 | NUR ---
PATIENT IS USING THE BATHROOM. SHE DENIES ANY NEEDS AT THIS TIME.
--- NOTE | 2018-06-24 08:00 | NUR ---
BREAKFAST GIVEN.PLAN FOR DC HOME TODAY.
[2018-06-24] MEDS ORDERED: SINGULAIR10 MG PO (08:33)
[2018-06-24] MEDS ORDERED: FLUTICASONE PRO16 GM NASAL (08:34)
--- NOTE | 2018-06-24 09:53 | NUR ---
PATIENT DISCHARGING HOME TODAY WITH FAMILY. [facility] WILL PROVIDE THERAPY AT HOME. [facility] WILL DELIVER A SHOWER CHAIR AND A ROLLAITOR, [facility] WILL DELIVER A NEBULIZER. DR. REYNOSO 07/08/18 @ 4:15, DR. SIMS/LAMAR CHANEL APN 07/27/18 @ 9:20. DISCHARGE INSTRUCTIONS WITH FIM DATA FAXED TO PCP, HOME HEALTH AND REVIEWED WITH PATIENT. PATIENT CHOICE FORMS AND IMFM FORMS SIGNED, COPIES GIVEN TO PATIENT AND FILED IN CHART.
--- NOTE | 2018-06-24 12:00 | NUR ---
REVIEWED MEDS AND APPOINTS.DC'D HOME IN STABLE CONDITION WITH FAMILY.SEE DC CARE.
== END 2018-06-24 12:04 | disposition home health service (06) | DRG 91 ==
LOC: D.REHAB 16:49
PROVIDERS: Internal Medicine Pulmonary Disease; ADMIT Emergency Medicine; ATTEND Emergency Medicine
DX: G72.89 Other specified myopathies (principal); I50.23 Acute on chronic systolic (congestive) heart failure; I42.9 Cardiomyopathy, unspecified; R55 Syncope and collapse; I48.91 Unspecified atrial fibrillation; I95.9 Hypotension, unspecified; R53.1 Weakness; R53.83 Other fatigue; H81.10 Benign paroxysmal vertigo, unspecified ear; E78.5 Hyperlipidemia, unspecified; M81.0 Age-related osteoporosis without current pathological fracture; M19.90 Unspecified osteoarthritis, unspecified site; H26.9 Unspecified cataract; R60.0 Localized edema; K21.9 Gastro-esophageal reflux disease without esophagitis; E03.9 Hypothyroidism, unspecified; Z95.0 Presence of cardiac pacemaker

== ENCOUNTER 2018-07-03 17:29 | Inpatient (IN) | payer MEDICARE, OTHER ==
[~2018-07-03] VITALS: Ht 170.2 cm; Wt 80.0 kg
[~2018-07-03 17:29] MED LIST changes: +FLUTICASONE PRO16 GM NASAL; +SINGULAIR10 MG PO
[2018-07-03 18:13] LABS: APTT 30.9 SECONDS (22.8-39.4); INR 2.45 (0.85-1.17); PROTIME 25.9 SECONDS (11.6-15.0)
[2018-07-03 18:19] LABS: BASOPHILS 0.3 % (0-2); EOSINOPHILS 0.4 % (0-7); HEMATOCRIT 35.4 % (36.0-48.0); HEMOGLOBIN 11.4 g/dL (12-16); IMMATURE GRANULOCYTES 0.4 % (0-5); LYMPHOCYTES 11.4 % (15-50); MCH 28.6 pg (26.0-34.0); MCHC 32.2 g/dL (31.0-37.0); MCV 88.9 fL (80.0-100.0); MEAN PLATELET VOLUME 10.1 fL (7.4-10.4); MONOCYTES 9.4 % (2-11); NEUTROPHILS 78.1 % (40-80); RBC 3.98 10x6/uL (4.00-5.40); RDW 15.6 % (11.5-14.5)
[2018-07-03 18:22] LABS: PLATELET COUNT 293 10x3/uL (130-400)
[2018-07-03 18:30] VITALS: BP 129/78
[2018-07-03 18:38] LABS: APPEARANCE CLEAR (CLEAR); BILIRUBIN NEGATIVE (NEGATIVE); COLOR YELLOW (YELLOW); GLUCOSE NEGATIVE (NEGATIVE); KETONE NEGATIVE (NEGATIVE); NITRITE NEGATIVE (NEGATIVE); PROTEIN TRACE mg/dL (NEGATIVE); UROBILINOGEN NORMAL (NORMAL)
[2018-07-03 18:38] LABS: ALKALINE PHOSPHATASE 179 U/L (46-116); ALT (SGPT) 116 U/L (10-68); BILIRUBIN - TOTAL 1.01 mg/dL (0.2-1.3); CALC OSMOLALITY 292 mosm/kg (275-300); CALCIUM 8.2 mg/dL (8.5-10.1); CARBON DIOXIDE 27.1 mmol/L (21.0-32.0); CHLORIDE - SERUM 104 mmol/L (98-107); CREATININE - SERUM 1.7 mg/dL (0.6-1.3); GLUCOSE 142 mg/dL (74-106); POTASSIUM - SERUM 4.2 mmol/L (3.5-5.1); PROTEIN - SERUM 6.1 g/dL (6.4-8.2); SODIUM 142 mmol/L (136-145); UREA NITROGEN 36 mg/dL (7-18); eGFR NON AFRICAN AMERICAN 30 mL/min (90-120)
[2018-07-03 18:49] LABS: CKMB 1.7 U/L (0.0-3.6); CREATINE KINASE 160 UL (21-215); MAGNESIUM - SERUM 1.8 mg/dL (1.8-2.4); PRO BNP 20342 pg/mL (0-450); TROPONIN-I 0.037 ng/mL (0.000-0.060)
[2018-07-03 19:56] VITALS: BP 118/66
--- NOTE | 2018-07-03 20:27 | NUR ---
REPORT RECIEVED FROM MARIYA IN ER. PT NOW HEADING TO ROOM 2120.
--- NOTE | 2018-07-03 20:47 | NUR ---
ARRIVED TO UNIT VIA STRETCHER. TRANSFERRED TO BED. ADMISSION SKIN ASSESSMENT COMPLETED. ADMISSION HISTORY INITIATED. SALINE LOCK TO RIGHT HAND. PT ALERT/ORIENTED AND COOPERATIVE. HACKING/DRY COUGH. O2 @ 2L/NC. SEE ADMISSION ASSESSMENT/HISTORY/MEDICATION REVIEW/UPDATES. INSTRUCTED ON PLAN OF CARE. CALL LIGHT IN REACH.
[2018-07-03 22:46] VITALS: BP 112/64; BMI 29.3
[2018-07-04] VITALS: BP 110/60
[2018-07-04 04:00] VITALS: BP 107/66
[2018-07-04 06:52] LABS: ALBUMIN 2.6 g/dL (3.4-5.0); ALKALINE PHOSPHATASE 153 U/L (46-116); ALT (SGPT) 101 U/L (10-68); BILIRUBIN - TOTAL 1.18 mg/dL (0.2-1.3); CALC OSMOLALITY 288 mosm/kg (275-300); CALCIUM 8.1 mg/dL (8.5-10.1); CARBON DIOXIDE 29.4 mmol/L (21.0-32.0); CHLORIDE - SERUM 103 mmol/L (98-107); CREATINE KINASE 97 UL (21-215); CREATININE - SERUM 1.7 mg/dL (0.6-1.3); GLUCOSE 122 mg/dL (74-106); POTASSIUM - SERUM 3.8 mmol/L (3.5-5.1); PROTEIN - SERUM 5.4 g/dL (6.4-8.2); SODIUM 141 mmol/L (136-145); TROPONIN-I 0.051 ng/mL (0.000-0.060); UREA NITROGEN 33 mg/dL (7-18); eGFR NON AFRICAN AMERICAN 30 mL/min (90-120)
[2018-07-04 07:16] LABS: BASOPHILS 0.2 % (0-2); EOSINOPHILS 0.5 % (0-7); HEMATOCRIT 33.7 % (36.0-48.0); HEMOGLOBIN 10.6 g/dL (12-16); IMMATURE GRANULOCYTES 0.2 % (0-5); LYMPHOCYTES 9.2 % (15-50); MCHC 31.5 g/dL (31.0-37.0); MCV 89.2 fL (80.0-100.0); MEAN PLATELET VOLUME 10.1 fL (7.4-10.4); MONOCYTES 10.1 % (2-11); NEUTROPHILS 79.8 % (40-80); PLATELET COUNT 289 10x3/uL (130-400); RBC 3.78 10x6/uL (4.00-5.40); RDW 15.7 % (11.5-14.5); WBC 9.3 10x3/uL (4.8-10.8)
--- NOTE | 2018-07-04 07:30 | NUR ---
ASSESSMENT COMPLETED. ALERT AND ORIENTED. TELEMERTY SHOWS PACED RHYTHM. 02 AT 2 L/M PER NC. BARRIETNOS CATH PATENT TO GRAVITY BAG. SL TO RIGHT HAND. BRUIES TO HIPS AND LEFT FLANK. SHAYY ALARM TO BED. SR UP WITH CALL LIGHT IN REACH
--- NOTE | 2018-07-04 09:00 | NUR ---
DOBUTAMINE DRIP STARTED PER DRS ORDERS.
[2018-07-04 09:54] VITALS: BP 108/41
[2018-07-04 11:42] LABS: % SATURATION 18 % (15-55); IRON 61 ug/dl (35-150); TOTAL IRON BIND CAPACITY 336 ug/dl (260-445); UNSAT IRON BIND CAPACITY 275 ug/dl (150-375)
[2018-07-04 11:55] LABS: THYROID STIMULATING HORMONE 4.46 uIU/mL (0.36-3.74)
[2018-07-04 12:46] VITALS: BP 113/47
--- NOTE | 2018-07-04 15:00 | NUR ---
LYING QUIETLY. DENIES ANY NEEDS. IV DOBUTAMINE INFUSING AT 7.5MCG . NO NEEDS VOICED
[2018-07-04 18:31] VITALS: BP 156/48
[2018-07-04 20:01] VITALS: BP 116/52
[2018-07-05 00:30] VITALS: BP 122/60
[2018-07-05 03:48] VITALS: BP 113/62
[2018-07-05 05:29] LABS: PROTIME 30.3 SECONDS (11.6-15.0)
[2018-07-05 05:30] LABS: HEMATOCRIT 32.3 % (36.0-48.0); HEMOGLOBIN 10.7 g/dL (12-16); INR 2.99 (0.85-1.17); MCH 29.5 pg (26.0-34.0); MCHC 33.1 g/dL (31.0-37.0); PLATELET COUNT 283 10x3/uL (130-400); RBC 3.63 10x6/uL (4.00-5.40); RDW 15.3 % (11.5-14.5); WBC 9.4 10x3/uL (4.8-10.8)
[2018-07-05 05:40] LABS: ANION GAP 10.3 mmol/L (8-16); CALCIUM 8.2 mg/dL (8.5-10.1); CARBON DIOXIDE 30.1 mmol/L (21.0-32.0); CREATININE - SERUM 1.7 mg/dL (0.6-1.3); POTASSIUM - SERUM 3.4 mmol/L (3.5-5.1)
[2018-07-05 07:48] VITALS: BP 127/57
--- NOTE | 2018-07-05 10:31 | NUR ---
TELEMETRY PACED. IV PATENT. BARRIENTOS INTACT. AT BS. CALL LIGHT IN REACH. WILL CONT. PLAN OF CARE.
[2018-07-05 11:20] VITALS: BP 116/61
--- NOTE | 2018-07-05 12:55 | NUR ---
C/O OF COUGH AND CONSTIPATION. NEW ORDERS GIVEN.
[2018-07-05 13:27] VITALS: Ht 170.2 cm; Wt 80.0 kg
[2018-07-05 14:41] VITALS: BP 129/69
--- NOTE | 2018-07-05 18:14 | NUR ---
LRG BM NOTED. SPECIMEN COLLECTED AND TAKEN TO LAB. WILL [id number].
--- NOTE | 2018-07-05 19:07 | NUR ---
RECIEVED UP IN BED WITH EYES OPEN. ALERT AND ORIENTED. C/O LOOSE STOOL AND STATED SHE HAD AN ACCIDENT. INCONTINENT OF BOWEL. O2 @ 2 LITERS PER N/C IN PLACE. IV TO RIGHT HAND WITH DOBUTAMINE INFUSING AT 7.6ML/HR. F/C INTACT WITH DARK COLOR URINE TO BEDSIDE DRAINAGE BAG. PACEMAKER TO LEFT CHEST AND TELEMETRY IN PLACE. SHAYY ALARM ON BED, YELLOW GOWN ON AND NONSKID SOCKS IN PLACE. DENIES ANY NEEDS.
[2018-07-05 21:48] VITALS: BP 130/72
--- NOTE | 2018-07-05 23:39 | NUR ---
MIRALAX HELD THIS SHIFT D/T WATERY DIARRHEA. EPISODE OF EXPLOSIVE DIARRHEA WHEN THIS NURSE WAS PLACING HER ON THE BEDPAN SOILING THE BED AND THIS NURSE.PT HAD COUGHED WHEN BEING TURNED TO BE PLACED ON BEDPAN WHEN EPISODE HAPPENED. MAG CITRATE HAD BEEN GIVEN EARLIER TODAY.
[2018-07-06 05:40] LABS: BASOPHILS 0.1 % (0-2); EOSINOPHILS 0.5 % (0-7); HEMATOCRIT 32.8 % (36.0-48.0); HEMOGLOBIN 10.2 g/dL (12-16); IMMATURE GRANULOCYTES 0.3 % (0-5); LYMPHOCYTES 6.9 % (15-50); MCH 27.9 pg (26.0-34.0); MCHC 31.1 g/dL (31.0-37.0); MCV 89.9 fL (80.0-100.0); MEAN PLATELET VOLUME 9.9 fL (7.4-10.4); NEUTROPHILS 83.2 % (40-80); PLATELET COUNT 283 10x3/uL (130-400); RBC 3.65 10x6/uL (4.00-5.40); RDW 15.8 % (11.5-14.5); WBC 10.9 10x3/uL (4.8-10.8)
[2018-07-06 05:55] VITALS: BP 111/55
[2018-07-06 06:08] LABS: ANION GAP 7.6 mmol/L (8-16); CALCIUM 8.3 mg/dL (8.5-10.1); CARBON DIOXIDE 33.3 mmol/L (21.0-32.0); CREATININE - SERUM 1.3 mg/dL (0.6-1.3); POTASSIUM - SERUM 3.9 mmol/L (3.5-5.1)
--- NOTE | 2018-07-06 07:10 | NUR ---
ASSESSMENT DONE. DENIES NEEDS
[2018-07-06 08:07] VITALS: BP 118/61
[2018-07-06 09:13] LABS: FOLATE (FOLIC ACID) - SERUM >20.0 ng/mL (>3.0)
[2018-07-06 11:25] VITALS: BP 111/51
--- NOTE | 2018-07-06 12:43 | NUR ---
I have reviewed this patient and I concur with the Shift Assessment completed by the Licensed Practical Nurse today this shift.
[2018-07-06 15:19] VITALS: BP 113/63
--- NOTE | 2018-07-06 16:53 | NUR ---
WITHOUT CHANGES OR DISTRESS NOTED AT THIS TIME. DENIES NEEDS
[2018-07-06 20:45] VITALS: BP 111/60
[2018-07-06 23:37] VITALS: BP 115/59
[2018-07-07 06:16] VITALS: BP 115/67
[2018-07-07 06:24] LABS: CALCIUM 8.3 mg/dL (8.5-10.1); CARBON DIOXIDE 29.2 mmol/L (21.0-32.0); CREATININE - SERUM 1.4 mg/dL (0.6-1.3); POTASSIUM - SERUM 4.2 mmol/L (3.5-5.1)
[2018-07-07 06:57] LABS: BASOPHILS 0.2 % (0-2); EOSINOPHILS 1.2 % (0-7); HEMATOCRIT 34.2 % (36.0-48.0); HEMOGLOBIN 10.6 g/dL (12-16); IMMATURE GRANULOCYTES 0.3 % (0-5); LYMPHOCYTES 7.7 % (15-50); MCV 90.2 fL (80.0-100.0); MEAN PLATELET VOLUME 10.3 fL (7.4-10.4); MONOCYTES 8.5 % (2-11); NEUTROPHILS 82.1 % (40-80); PLATELET COUNT 288 10x3/uL (130-400); RBC 3.79 10x6/uL (4.00-5.40); RDW 16.2 % (11.5-14.5); WBC 11.5 10x3/uL (4.8-10.8)
[2018-07-07 08:24] VITALS: BP 132/72
--- NOTE | 2018-07-07 09:45 | NUR ---
I have reviewed this patient and I concur with the Shift Assessment completed by the Licensed Practical Nurse today this shift.
[2018-07-07 11:36] VITALS: BP 129/72
[2018-07-07 15:23] VITALS: BP 111/54
--- NOTE | 2018-07-07 16:48 | MORECARE ---
CASE MANAGEMENT DISCHARGE SUMMARY PATIENT: EWELINA HERRON UNIT: [id number] ADM DATE: 07/03/18 AGE: 83 : 35 SEX: F ROOM/BED: D.4650 AUTHOR: NEO GARCÍA PHYSICIAN: REFERRING PHYSICIAN: YOGI JOHNSON DO DATE OF SERVICE: 07/07/18 Discharge Plan Patient Name: EWELINA HERRON Facility: [facility]:[place] : 1935 Planned Disposition: Home with Home Health Anticipated Discharge Date: Discharge Date: Expected LOS: Initial Reviewer: [id number] Initial Review Date: 07/07/2018 Generated: 07/07/18 5:48 pm DCPIA - Discharge Planning Initial Assessment Updated by AMILCAR: Benito Rincon on 07/07/18 4:46 pm * Is the patient Alert and Oriented? Yes * How many steps to enter\exit or inside your home? NONE * PCP DR. REYNOSO * Pharmacy [facility] * Preadmission Environment Home Alone * ADLs Independent * Equipment Bedside Commode Walker * Other Equipment NO MEDICAL EQUIPMENT PROVIDER * List name and contact numbers for known caregivers / representatives who currently or will assist patient after discharge: ALESSANDRA LEE, DTR, * Verbal permission to speak to the caregivers and representatives has been obtained from the patient. Yes * Community resources currently utilized Home Health * Please name any agencies selected above. [facility] * Additional services required to return to the preadmission environment? No * Can the patient safely return to the preadmission environment? Yes * Has this patient been hospitalized within the prior 30 days at any hospital? Yes Coverage Notice Reviewer: [email or web address] Ceferino Rincon Notice Issued Date-Time: 07/07/2018 9:40 Notice Type: Patient Choice Letter Notice Delivered To: Patient Relationship to Patient: Variety Lathe Operator Name: Delivery Method: HAND - Hand Delivered Joan Days: Prior Verbal Notification: Recipient Understood Notice: Yes Recipient Signature: Yes Med Rec Note Co-signed by Attending: Coverage Notice Comment: [facility] Reviewer: [id number] Ceferino Rincon Notice Issued Date-Time: 07/07/2018 9:40 Notice Type: IM Discharge Notice Notice Delivered To: Patient Relationship to Patient: Variety Lathe Operator Name: Delivery Method: HAND - Hand Delivered Joan Days: Prior Verbal Notification: Recipient Understood Notice: Yes Recipient Signature: Yes Med Rec Note Co-signed by Attending: Coverage Notice Comment: Patient Name: EWELINA HERRON Page [id number] at 1648 All edits/amendments must be made on the electronic document DICTATION DATE: 07/07/181647 CARBON COATER MACHINE OPERATOR: PATTI 07/07/181647 RPT#: [id number] DC DATE: STATUS: ADM IN [facility] [address] [place] [address] END OF REPORT
--- NOTE | 2018-07-07 16:57 | MORECARE ---
CASE MANAGEMENT DISCHARGE SUMMARY PATIENT: EWELINA HERRON UNIT: [id number] ADM DATE: 07/03/18 AGE: 83 : 35 SEX: F ROOM/BED: D.6552 AUTHOR: RICKY,DOC PHYSICIAN: REFERRING PHYSICIAN: YOGI JOHNSON DO DATE OF SERVICE: 07/07/18 Discharge Plan Patient Name: EWELINA HERRON Facility: [facility]:[place] : 1935 Planned Disposition: Home with Home Health Anticipated Discharge Date: Discharge Date: Expected LOS: Initial Reviewer: [id number] Initial Review Date: 07/07/2018 Generated: 07/07/18 5:57 pm Comments DCP- Discharge Planning Updated by [email or web address]: Benito Rincon on 07/07/18 3:[address] Patient Name: EWELINA HERRON Admission Status: ER Accout number: [id number] Admission Date: 07-03-2018 : 1935 Admission Diagnosis:SHORTNESS OF BREATH Attending: YOGI JOHNSON Current LOS: 4 Anticipated DC Date: Planned Disposition: Home with Home Health Primary Insurance: MEDICARE A & B PLANNED EXTERNAL PROVIDER: [facility] Discharge Planning Comments: CM MET WITH PT IN ROOM TO DISCUSS DISCHARGE PLANNING AND NEEDS. PT REPORTS LIVING AT HOME INDEPENDENTLY AND ALONE. PT WALKER AND BEDSIDE COMMODE WITH NO MEDICAL EQUIPMENT PROVIDER PREFERENCE. PT HAS HOME HEALTH FOR NURSING AND PHYSICAL THERAPY WITH [facility]. CM DISCUSSED AVAILABILITY OF HOME HEALTH, REHAB SERVICES AND MEDICAL EQUIPMENT. PT DENIES DISCHARGE NEEDS AND WANTS HOME HEALTH TO RESUME AT DISCHARGE. PROVIDER LISTING GIVEN, CHOICE SIGNED FOR [facility]; PT REPORTS HER DAUGHTER WILL PICK HER UP FOR DISCHARGE HOME. IMPORTANT MESSAGE FROM MEDICARE PROVIDED AND EXPLAINED. PT PLANS TO DISCHARGE HOME ALONE, FAMILY TO TRANSPORT. FOR DISCHARGE, NOTIFY [facility], , FAX REFERRAL AND DISCHARGE INFORMATION TO [facility] AT [phone]. CM TO FOLLOW AND ASSIST NEEDED. Arts Administrator: Benito Rincon DCPIA - Discharge Planning Initial Assessment Updated by [email or web address]: Benito Rincon on 07/07/18 4:46 pm * Is the patient Alert and Oriented? Yes * How many steps to enter\exit or inside your home? NONE * PCP DR. REYNOSO * Pharmacy [facility] * Preadmission Environment Home Alone * ADLs Independent * Equipment Bedside Commode Walker * Other Equipment NO MEDICAL EQUIPMENT PROVIDER * List name and contact numbers for known caregivers / representatives who currently or will assist patient after discharge: ALESSANDRA LEE, DTR, * Verbal permission to speak to the caregivers and representatives has been obtained from the patient. Yes * Community resources currently utilized Home Health * Please name any agencies selected above. [facility], [facility]ER[facility] * Additional services required to return to the preadmission environment? No * Can the patient safely return to the preadmission environment? Yes * Has this patient been hospitalized within the prior 30 days at any hospital? Yes Coverage Notice Reviewer: [id number] Rincon Notice Issued Date-Time: 07/07/2018 9:40 Notice Type: Patient Choice Letter Notice Delivered To: Patient Relationship to Patient: Farmworker [employer] Name: Delivery Method: HAND - Hand Delivered Joan Days: Prior Verbal Notification: Recipient Understood Notice: Yes Recipient Signature: Yes Med Rec Note Co-signed by Attending: Coverage Notice Comment: [facility] Reviewer: [id number] Rincon Notice Issued Date-Time: 07/07/2018 9:40 Notice Type: IM Discharge Notice Notice Delivered To: Patient Relationship to Patient: Farmworker [employer] Name: Delivery Method: HAND - Hand Delivered Joan Days: Prior Verbal Notification: Recipient Understood Notice: Yes Recipient Signature: Yes Med Rec Note Co-signed by Attending: Coverage Notice Comment: Last DP export: 07/07/18 3:48 p Patient Name: EWELINA HERRON Page [id number] at 1657 All edits/amendments must be made on the electronic document DICTATION DATE: 07/07/181656 COAT PRESSER: PATTI 07/07/181656 RPT#: [id number] DC DATE: STATUS: ADM IN [facility] [address] [place] [address] END OF REPORT
--- NOTE | 2018-07-07 18:29 | NUR ---
WITHOUT CHANGES OR DISTRESS NOTED AT THIS TIME.
--- NOTE | 2018-07-07 19:35 | NUR ---
ASSESSMENT COMPLETE, PT A7O. RESPERATIONS EVEN ON RA. IV TO LEFT HAND WITH DOBUTMINE AT 4.7 CC/HR. IV SITE CLEAN AND DRY. PT CURRENTLY DENIES PAIN OR NEEDS, BED LOW, CL IN REACH.
[2018-07-07 20:00] VITALS: BP 117/64
--- NOTE | 2018-07-07 20:54 | NUR ---
HS MEDS GIVEN WITH FRESH ICE WATER. PT DENIES PAIN OR NEEDS, BED LOW, CL IN REACH.
[2018-07-08] VITALS: BP 112/61
--- NOTE | 2018-07-08 00:22 | NUR ---
RESTING WITH EYES CLOSED, RESPERATIONS EVEN, NO S/S DISTRESS NOTED.
[2018-07-08 04:00] VITALS: BP 117/66
--- NOTE | 2018-07-08 05:11 | NUR ---
I have reviewed this patient and I concur with the Shift Assessment completed by the Licensed Practical Nurse today this shift.
[2018-07-08 06:23] LABS: HEMATOCRIT 35.1 % (36.0-48.0); MCH 28.2 pg (26.0-34.0); MCHC 31.3 g/dL (31.0-37.0); MEAN PLATELET VOLUME 10.2 fL (7.4-10.4); PLATELET COUNT 269 10x3/uL (130-400); RDW 16.2 % (11.5-14.5); WBC 10.4 10x3/uL (4.8-10.8)
[2018-07-08 06:44] LABS: ANION GAP 13.6 mmol/L (8-16); CALCIUM 8.2 mg/dL (8.5-10.1); CARBON DIOXIDE 27.9 mmol/L (21.0-32.0); CREATININE - SERUM 1.4 mg/dL (0.6-1.3); POTASSIUM - SERUM 4.5 mmol/L (3.5-5.1)
--- NOTE | 2018-07-08 07:49 | NUR ---
ASSESSMENT COMPLETED. ALERT AND ORIENTED.TELEMERTY SHOWS SR 69. BARRIENTOS CATH PATENT TO GRAVITY BAG. UP WITH ASSIST. DENIES ANY NEEDS. SR UP WITH CALL LIGHT IN REACH
[2018-07-08 08:00] VITALS: BP 128/71
--- NOTE | 2018-07-08 08:09 | NUR ---
ALERT AND ORIENTED. TELEMERTY SHOWS SR 74. IV OF NS AT 125 INFUSING INTO THE LEFT AC. DENIES ANY NEEDS. WILL MONITOR
[2018-07-08 08:28] LABS: ANISOCYTOSIS OCC; EOSINOPHILS 1 % (0-7); HYPOCHROMASIA OCC; LYMPHOCYTES 15 % (15-50); MONOCYTES 9 % (2-11); NEUTROPHILS 75 % (40-80); PLATELET ESTIMATE NORMAL
--- NOTE | 2018-07-08 10:35 | NUR ---
Nutrition Follow Up: Diabetic diet with 54% average po intake BM yesterday Weight 182lb Pt reports she is not able to eat much Stressed the importance of nutrition to help pt heal and maintain strength Pt will drink Glucerna-added to all trays RD following
[2018-07-08 12:11] VITALS: BP 116/61
[2018-07-08 16:00] VITALS: BP 113/79
[2018-07-08 16:03] LABS: APPEARANCE HAZY (CLEAR); BILIRUBIN NEGATIVE (NEGATIVE); COLOR AMBER (YELLOW); GLUCOSE NEGATIVE (NEGATIVE); KETONE NEGATIVE (NEGATIVE); NITRITE NEGATIVE (NEGATIVE); PROTEIN 2+ mg/dL (NEGATIVE); UROBILINOGEN NORMAL (NORMAL)
[2018-07-08 16:05] LABS: BACTERIA MANY /hpf (NONE SEEN); EPITHELIAL CELLS 0-5 /hpf (0-5); RED CELLS - URINE 25-50 /hpf (0-5)
[2018-07-08 16:06] LABS: AMORPHOUS SEDIMENT <1+ /lpf (NONE SEEN)
--- NOTE | 2018-07-08 18:07 | NUR ---
I have reviewed this patient and I concur with the Shift Assessment completed by the Licensed Practical Nurse today this shift.
--- NOTE | 2018-07-08 19:05 | NUR ---
ACKNOLEDGED PT AND EXAMINED ROOM BED IS LOCKED AND LOW WITH SRX2 AND CALL LIGHT IS WITH IN REACH OF PATIENT I ASSISTED WITH THE BED FINK AT THIS TIME. SKIN WARM AND DRY. LCTA AND DENIES PAINREAPPLIED O2 AT 2L...ALERT AND ORIENTED OVEN WORKER IS IN PLACE RESECURED SALINE LOC
[2018-07-08 22:57] VITALS: BP 110/70
[2018-07-09] VITALS: BP 120/68
--- NOTE | 2018-07-09 02:41 | NUR ---
CLEANED PT OF STOOL. AND RENOTED BRUISING TO LEFT SIDE THAT I LEFT OUT OF PT ASSESSMENT
[2018-07-09 06:06] LABS: HEMATOCRIT 36.9 % (36.0-48.0); LYMPHOCYTES 8.7 % (15-50); MCH 29.3 pg (26.0-34.0); MCHC 32.5 g/dL (31.0-37.0); MEAN PLATELET VOLUME 10.3 fL (7.4-10.4); NEUTROPHILS 81.8 % (40-80); PLATELET COUNT 270 10x3/uL (130-400); RDW 15.5 % (11.5-14.5); WBC 11.6 10x3/uL (4.8-10.8)
[2018-07-09 06:22] LABS: ANION GAP 11.7 mmol/L (8-16); CALCIUM 8.6 mg/dL (8.5-10.1); CARBON DIOXIDE 26.4 mmol/L (21.0-32.0); CREATININE - SERUM 1.6 mg/dL (0.6-1.3); POTASSIUM - SERUM 5.1 mmol/L (3.5-5.1)
--- NOTE | 2018-07-09 07:30 | NUR ---
ASSESSMENT COMPLETED. ALERT AND ORIENTED. TELEMERTY SHOWS PACED RHYTHM. 02 AT 2 L/M PER NC. DENIES ANY NEEDS. SR UP WITH CALL LIGHT IN REACH. SL TO RIGHT FA
[2018-07-09 08:22] VITALS: BP 113/66
--- NOTE | 2018-07-09 09:16 | MORECARE ---
CASE MANAGEMENT DISCHARGE SUMMARY PATIENT: EWELINA HERRON UNIT: [id number] ADM DATE: 07/03/18 AGE: 83 : 35 SEX: F ROOM/BED: D.0700 AUTHOR: NEO GARCÍA PHYSICIAN: REFERRING PHYSICIAN: YOGI JOHNSON DO DATE OF SERVICE: 07/09/18 Discharge Plan Patient Name: EWELINA [facility] [facility] 1935 Planned Disposition: Inpatient Rehab Anticipated Discharge Date: 07/12/18 Discharge Date: Expected LOS: 9 Initial Reviewer: AMILCAR Initial Review Date: 07/07/2018 Generated: 07/09/18 10:15 am Comments DCP- Discharge Planning Updated by AMILCAR: Benito Rincon on 07/09/18 8:[address] Patient Name: EWELINA HERRON Encounter No: [id number] : 1935 Primary Insurance: MEDICARE A & B Anticipated DC Date: 07-12-2018 Planned Disposition: Inpatient Rehab External Planned Provider: [facility] DCP follow-up note: CM MET WITH PT, SPOUSE, PT'S DAUGHTER AND SISI COLLINS IN ROOM. CM ADVISED THAT PT WILL NOT BE READY TO DISCHARGE IN THE NEXT 2 DAYS, PT NOT FEELING WELL, WILL NEED REHAB. CM DISCUSSED REHAB OPTIONS WITH PT AND FAMILY. PT'S SPOUSE STATES PT WILL NOT GO TO GROUP HOME FACILITY AND WILL ONLY GO TO REHAB AT [facility]. PT STATES SHE HAS BEEN THERE RECENTLY AND DONE WELL. THEY BELIEVE PT CAN PARTICIPATE FULLY WITH THREE HOURS OF PROGRESSIVE THERAPY AND HAVE PLAN TO DISCHARGE HOME WITH SPOUSE AND [facility] RES[facility] AFTER REHAB. CM RECEIVED ORDER FOR INPATIENT REHAB PRESCREENING. CM WAITING MEDICAL STABILITY AND INPATIENT REHAB PRESCREENING / ADMISSION DETERMINATION FROM [facility]. FLORY Mariano DCP- Discharge Planning Updated by [id number]: Benito Rincon on 07/07/18 3:[address] Patient Name: EWELINA HERRON Admission Status: ER Accout number: [id number] Admission Date: 07-03-2018 : 1935 Admission Diagnosis:SHORTNESS OF BREATH Attending: YOGI JOHNSON Current LOS: 4 Anticipated DC Date: Planned Disposition: Home with Home Health Primary Insurance: MEDICARE A & B PLANNED EXTERNAL PROVIDER: [email or web address] Discharge Planning Comments: CM MET WITH PT IN ROOM TO DISCUSS DISCHARGE PLANNING AND NEEDS. PT REPORTS LIVING AT HOME INDEPENDENTLY AND ALONE. PT WALKER AND BEDSIDE COMMODE WITH NO MEDICAL EQUIPMENT PROVIDER PREFERENCE. PT HAS HOME HEALTH FOR NURSING AND PHYSICAL THERAPY WITH [facility]. CM DISCUSSED AVAILABILITY OF HOME HEALTH, REHAB SERVICES AND MEDICAL EQUIPMENT. PT DENIES DISCHARGE NEEDS AND WANTS HOME HEALTH TO RESUME AT DISCHARGE. PROVIDER LISTING GIVEN, CHOICE SIGNED FOR [email or web address]; PT REPORTS HER DAUGHTER WILL PICK HER UP FOR DISCHARGE HOME. IMPORTANT MESSAGE FROM MEDICARE PROVIDED AND EXPLAINED. PT PLANS TO DISCHARGE HOME ALONE, FAMILY TO TRANSPORT. FOR DISCHARGE, NOTIFY [email or web address], , FAX REFERRAL AND DISCHARGE INFORMATION TO [email or web address] AT [phone]. CM TO FOLLOW AND ASSIST NEEDED. Water Resource Consultant: Benito Rincon DCPIA - Discharge Planning Initial Assessment Updated by AMILCAR: Benito Rincon on 07/07/18 4:46 pm * Is the patient Alert and Oriented? Yes * How many steps to enter\exit or inside your home? NONE * PCP DR. REYNOSO * Pharmacy [facility] * Preadmission Environment Home Alone * ADLs Independent * Equipment Bedside Commode Walker * Other Equipment NO MEDICAL EQUIPMENT PROVIDER * List name and contact numbers for known caregivers / representatives who currently or will assist patient after discharge: ALESSANDRA LEE, DTR, * Verbal permission to speak to the caregivers and representatives has been obtained from the patient. Yes * Community resources currently utilized Home Health * Please name any agencies selected above. [email or web address], NURSING AND PHYSICAL THERAPY * Additional services required to return to the preadmission environment? No * Can the patient safely return to the preadmission environment? Yes * Has this patient been hospitalized within the prior 30 days at any hospital? Yes Coverage Notice Reviewer: [id number] Ceferino Rincon Notice Issued Date-Time: 07/07/2018 9:40 Notice Type: Patient Choice Letter Notice Delivered To: Patient Relationship to Patient: Negative Notcher Name: Delivery Method: HAND - Hand Delivered Joan Days: Prior Verbal Notification: Recipient Understood Notice: Yes Recipient Signature: Yes Med Rec Note Co-signed by Attending: Coverage Notice Comment: [facility] Reviewer: [id number] Rincon Notice Issued Date-Time: 07/07/2018 9:40 Notice Type: IM Discharge Notice Notice Delivered To: Patient Relationship to Patient: Negative Notcher Name: Delivery Method: HAND - Hand Delivered Joan Days: Prior Verbal Notification: Recipient Understood Notice: Yes Recipient Signature: Yes Med Rec Note Co-signed by Attending: Coverage Notice Comment: Last DP export: 07/07/18 3:57 p Patient Name: EWELINA HERRON Page [phone] at 0916 All edits/amendments must be made on the electronic document DICTATION DATE: 07/09/18914 DEBURR OPERATOR: PATTI 07/09/18914 RPT#: [id number] DC DATE: STATUS: ADM IN [facility] [address] [place] [address] END OF REPORT
[2018-07-09 12:12] VITALS: BP 124/72
--- NOTE | 2018-07-09 14:12 | NUR ---
I have reviewed this patient and I concur with the Shift Assessment completed by the Licensed Practical Nurse today this shift.
[2018-07-09 16:36] VITALS: BP 130/82
--- NOTE | 2018-07-09 18:09 | NUR ---
LYING QUIETLY, FAMILY AT BEDSIDE. TELEMERTY SHOWS SR. RESPERATIONS REG AND NONE LABORED
--- NOTE | 2018-07-09 19:41 | NUR ---
AT REST BUT ALERT AND AWAKE WITH FAMILY BY BEDSIDE IV IS SALINE LOCKED AND I UNDERSTAND MEDS ARE PO ...BED IS LOW AND LOCKED SRX2...LCTA SKIN WARM AND DRY
[2018-07-09 20:00] VITALS: BP 102/63
[2018-07-10] VITALS: BP 113/67
--- NOTE | 2018-07-10 01:30 | NUR ---
PT CALLED USING CALLLIGHT. PT HAD STOOL AND URINE ON PAD, LAYING ON RIGHT SIDE. CLEANED PT AND CHANGED PADS. PT BEDLOW AND CALL LIGHT INREACH. WILL CPOC
[2018-07-10 04:00] VITALS: BP 107/63
--- NOTE | 2018-07-10 08:00 | NUR ---
ASSISTED UP TO CHAIR FOR BRK. TELEMETRY PACED. WILL CONT. PLAN OF CARE.
[2018-07-10 09:36] VITALS: BP 109/58
--- NOTE | 2018-07-10 10:00 | NUR ---
PT AT BS TO ASSIST WITH AMBULATING. WILL CONT. PLAN OF CARE.
[2018-07-10 12:30] VITALS: BP 111/62
--- NOTE | 2018-07-10 14:02 | NUR ---
UP TO SHOWER WITH STREET LIGHT LAMP CLEANER AND PT ASSIST.
[2018-07-10 16:48] VITALS: BP 113/65
--- NOTE | 2018-07-10 19:25 | NUR ---
RECIEVED LAYING IN BED WITH EYES OPEN AND TV ON. ALERT AND ORIENTED X4. IV TO RIGHT AC. BRUISING TO RIGHT AND LEFT AC. TELEMETRY IN PLACE. USES BEDSIDE COMMODE. REQUIRES ASSIST X2 FOR TRANSFERS. DENIES ANY NEEDS AT THIS TIME.
[2018-07-10 20:00] VITALS: BP 116/70
[2018-07-11] VITALS: BP 100/60
[2018-07-11 04:00] VITALS: BP 96/55
[2018-07-11 04:59] LABS: BASOPHILS 0.1 % (0-2); EOSINOPHILS 1.1 % (0-7); HEMOGLOBIN 10.7 g/dL (12-16); IMMATURE GRANULOCYTES 0.5 % (0-5); LYMPHOCYTES 10.6 % (15-50); MCH 27.9 pg (26.0-34.0); MCHC 31.5 g/dL (31.0-37.0); MCV 88.8 fL (80.0-100.0); MEAN PLATELET VOLUME 10.4 fL (7.4-10.4); MONOCYTES 10.5 % (2-11); NEUTROPHILS 77.2 % (40-80); PLATELET COUNT 276 10x3/uL (130-400); RBC 3.83 10x6/uL (4.00-5.40)
[2018-07-11 05:06] LABS: WBC 8.6 10x3/uL (4.8-10.8)
[2018-07-11 05:12] LABS: CALCIUM 8.7 mg/dL (8.5-10.1); CARBON DIOXIDE 29.5 mmol/L (21.0-32.0); CREATININE - SERUM 1.5 mg/dL (0.6-1.3); POTASSIUM - SERUM 4.5 mmol/L (3.5-5.1)
[2018-07-11 08:32] VITALS: BP 124/66
[2018-07-11 10:19] LABS: INR 3.36 (0.85-1.17); PROTIME 33.2 SECONDS (11.6-15.0)
[2018-07-11 12:27] VITALS: BP 109/56
[2018-07-11 15:58] VITALS: BP 111/59
--- NOTE | 2018-07-11 19:34 | NUR ---
RECIEVED UP IN BED WITH HOB ELEVATED AND O2@ 2 LITERS PER N/C. IV TO RIGHT AC SL.. ALERT AND ORIENTED. REQUIRES ASSIST X2 TO TRANSFER OR AMBULATE. BRUISING TO BILATERAL AC'S. TELEMETRY IN PLACE. PACEMAKER TO LEFT CHEST. DENIES ANY NEEDS AT THIS TIME.
[2018-07-11 20:26] VITALS: BP 116/64
[2018-07-12 01:17] VITALS: BP 109/62
[2018-07-12 05:12] LABS: BASOPHILS 0.2 % (0-2); EOSINOPHILS 2.1 % (0-7); HEMATOCRIT 33.2 % (36.0-48.0); HEMOGLOBIN 10.6 g/dL (12-16); IMMATURE GRANULOCYTES 0.6 % (0-5); LYMPHOCYTES 10.3 % (15-50); MCH 28.1 pg (26.0-34.0); MCHC 31.9 g/dL (31.0-37.0); MCV 88.1 fL (80.0-100.0); MEAN PLATELET VOLUME 10.5 fL (7.4-10.4); MONOCYTES 9.9 % (2-11); NEUTROPHILS 76.9 % (40-80); PLATELET COUNT 298 10x3/uL (130-400); RBC 3.77 10x6/uL (4.00-5.40); RDW 16.1 % (11.5-14.5); WBC 9.1 10x3/uL (4.8-10.8)
[2018-07-12 05:43] LABS: ANION GAP 8.8 mmol/L (8-16); CALCIUM 8.5 mg/dL (8.5-10.1); CARBON DIOXIDE 29.4 mmol/L (21.0-32.0); CREATININE - SERUM 1.5 mg/dL (0.6-1.3); POTASSIUM - SERUM 4.2 mmol/L (3.5-5.1)
[2018-07-12 05:55] VITALS: BP 98/55
[2018-07-12 06:17] LABS: EOSINOPHILS 2 % (0-7); LYMPHOCYTES 19 % (15-50); MONOCYTES 7 % (2-11); NEUTROPHILS 72 % (40-80)
[2018-07-12 06:18] LABS: PLATELET ESTIMATE NORMAL
--- NOTE | 2018-07-12 07:22 | NUR ---
REPORT RECIEVED FROM PROPERTY ASSESSMENT MONITOR AND PATIENT CARE ASSUMED. PATIENT LAYING IN BED ON BACK AWAKE, ALERT AND ORIENTED X 4. VSS. PATIENT IS STABLE. PATIENT DENIES ANY NEEDS OR PAIN. WILL CONTINUE WITH PLAN OF CARE. SR UP X 2 BED IN LOW POSITION AND CALL LIGHT IN REACH.
[2018-07-12 08:05] VITALS: BP 119/67
--- NOTE | 2018-07-12 08:45 | MORECARE ---
CASE MANAGEMENT DISCHARGE SUMMARY PATIENT: EWELINA HERRON UNIT: [id number] ADM DATE: 07/03/18 AGE: 83 : 35 SEX: F ROOM/BED: D.3193 AUTHOR: NEO GARCÍA PHYSICIAN: REFERRING PHYSICIAN: YOGI JOHNSON DO DATE OF SERVICE: 07/12/18 Discharge Plan Patient Name: EWELINA HERRON [facility] [facility] 1935 Planned Disposition: Inpatient Rehab Anticipated Discharge Date: 07/12/18 Discharge Date: Expected LOS: 9 Initial Reviewer: AMILCAR Initial Review Date: 07/07/2018 Generated: 07/12/18 9:44 am Comments DCP- Discharge Planning Updated by AMILCAR: Benito Rincon on 07/09/18 8:[address] Patient Name: EWELINA HERRON Encounter No: [id number] : 1935 Primary Insurance: MEDICARE A & B Anticipated DC Date: 07-12-2018 Planned Disposition: Inpatient Rehab External Planned Provider: [facility] DCP follow-up note: CM MET WITH PT, SPOUSE, PT'S DAUGHTER AND SISI COLLINS IN ROOM. CM ADVISED THAT PT WILL NOT BE READY TO DISCHARGE IN THE NEXT 2 DAYS, PT NOT FEELING WELL, WILL NEED REHAB. CM DISCUSSED REHAB OPTIONS WITH PT AND FAMILY. PT'S SPOUSE STATES PT WILL NOT GO TO LONG-TERM FACILITY AND WILL ONLY GO TO REHAB AT [place]. PT STATES SHE HAS BEEN THERE RECENTLY AND DONE WELL. THEY BELIEVE PT CAN PARTICIPATE FULLY WITH THREE HOURS OF PROGRESSIVE THERAPY AND HAVE PLAN TO DISCHARGE HOME WITH SPOUSE AND [facility] RES[facility] AFTER REHAB. CM RECEIVED ORDER FOR INPATIENT REHAB PRESCREENING. CM WAITING MEDICAL STABILITY AND INPATIENT REHAB PRESCREENING / ADMISSION DETERMINATION FROM [facility] IN[facility]. FLORY Mariano DCP- Discharge Planning Updated by [email or web address]: Benito Rincon on 07/07/18 3:[address] Patient Name: EWELINA HERRON Admission Status: ER Accout number: [id number] Admission Date: 07-03-2018 : 1935 Admission Diagnosis:SHORTNESS OF BREATH Attending: YOGI JOHNSON Current LOS: 4 Anticipated DC Date: Planned Disposition: Home with Home Health Primary Insurance: MEDICARE A & B PLANNED EXTERNAL PROVIDER: [facility] Discharge Planning Comments: CM MET WITH PT IN ROOM TO DISCUSS DISCHARGE PLANNING AND NEEDS. PT REPORTS LIVING AT HOME INDEPENDENTLY AND ALONE. PT WALKER AND BEDSIDE COMMODE WITH NO MEDICAL EQUIPMENT PROVIDER PREFERENCE. PT HAS HOME HEALTH FOR NURSING AND PHYSICAL THERAPY WITH [facility]. CM DISCUSSED AVAILABILITY OF HOME HEALTH, REHAB SERVICES AND MEDICAL EQUIPMENT. PT DENIES DISCHARGE NEEDS AND WANTS HOME HEALTH TO RESUME AT DISCHARGE. PROVIDER LISTING GIVEN, CHOICE SIGNED FOR [facility]; PT REPORTS HER DAUGHTER WILL PICK HER UP FOR DISCHARGE HOME. IMPORTANT MESSAGE FROM MEDICARE PROVIDED AND EXPLAINED. PT PLANS TO DISCHARGE HOME ALONE, FAMILY TO TRANSPORT. FOR DISCHARGE, NOTIFY [facility], , FAX REFERRAL AND DISCHARGE INFORMATION TO [facility] AT [phone]. CM TO FOLLOW AND ASSIST NEEDED. Fractionation Supervisor: Benito Rincon DCPIA - Discharge Planning Initial Assessment Updated by AMILCAR: Benito Rincon on 07/12/18 8:38 am * Is the patient Alert and Oriented? Yes * How many steps to enter\exit or inside your home? NONE * PCP DR. REYNOSO * Pharmacy [facility] * Preadmission Environment Home with Family * ADLs Independent * Equipment Bedside Commode Walker * Other Equipment NO MEDICAL EQUIPMENT PROVIDER * List name and contact numbers for known caregivers / representatives who currently or will assist patient after discharge: ALESSANDRA LEE, DTR, * Verbal permission to speak to the caregivers and representatives has been obtained from the patient. Yes * Community resources currently utilized Home Health * Please name any agencies selected above. [facility], NURSING AND PHYSICAL THERAPY * Additional services required to return to the preadmission environment? No * Can the patient safely return to the preadmission environment? Yes * Has this patient been hospitalized within the prior 30 days at any hospital? Yes Coverage Notice Reviewer: [id number] Ceferino Rincon Notice Issued Date-Time: 07/07/2018 9:40 Notice Type: Patient Choice Letter Notice Delivered To: Patient Relationship to Patient: Sports Coordinator Name: Delivery Method: HAND - Hand Delivered Joan Days: Prior Verbal Notification: Recipient Understood Notice: Yes Recipient Signature: Yes Med Rec Note Co-signed by Attending: Coverage Notice Comment: [facility] Reviewer: AMILCAR Rincon Notice Issued Date-Time: 07/07/2018 9:40 Notice Type: IM Discharge Notice Notice Delivered To: Patient Relationship to Patient: Sports Coordinator Name: Delivery Method: HAND - Hand Delivered Joan Days: Prior Verbal Notification: Recipient Understood Notice: Yes Recipient Signature: Yes Med Rec Note Co-signed by Attending: Coverage Notice Comment: Last DP export: 07/09/18 8:16 a Patient Name: EWELINA HERRON Page [phone] at 0845 All edits/amendments must be made on the electronic document DICTATION DATE: 07/12/18843 FREEZER MACHINE OPERATOR: PATTI 07/12/1844 RPT#: [id number] DC DATE: STATUS: ADM IN [facility] [address] [place] [address] END OF REPORT
--- NOTE | 2018-07-12 09:45 | NUR ---
RECEIVED CALL FROM MICRO IN LAB. PATIENT IS ESBL POSITIVE IN URINE. PATIENT PLACE IN CONTACT PRECAUTIONS. WILL CONTINUE TO MONITOR.
--- NOTE | 2018-07-12 11:53 | MORECARE ---
CASE MANAGEMENT DISCHARGE SUMMARY PATIENT: EWELINA HERRON UNIT: [id number] ADM DATE: 07/03/18 AGE: 83 : 35 SEX: F ROOM/BED: D.6275 AUTHOR: RICKY,DOC PHYSICIAN: REFERRING PHYSICIAN: YOGI JOHNSON DO DATE OF SERVICE: 07/12/18 Discharge Plan Patient Name: EWELINA HERRON Facility: [facility]:[place] : 1935 Planned Disposition: Home with Home Health Anticipated Discharge Date: 07/12/18 Discharge Date: Expected LOS: 9 Initial Reviewer: AMILCAR Initial Review Date: 07/07/2018 Generated: 07/12/18 12:53 pm Comments DCP- Discharge Planning Updated by [email or web address]: Benito Rincon on 07/12/18 10:[address] Patient Name: EWELINA HERRON Encounter No: [id number] : 1935 Primary Insurance: MEDICARE A & B Anticipated DC Date: 07-12-2018 Planned Disposition: Home with Home Health External Planned Provider: [facility] Discharge Planning Comments: CM RECEIVED INPATIENT REHAB PRESCREEN, ADVISED BY ANI OF INPATIENT REHAB THEY WILL ACCEPT TODAY IF PT WANTS REHAB. CM MET WITH PT AND SPOUSE IN ROOM TO DISCUSS DISCHARGE PLANNING AND NEEDS. EWELINA HERRON provided verbal consent to discuss current and ongoing needs with/in the presence of: SPOUSE, JANN. CM DISCUSSED AVAILABILITY OF HOME HEALTH, REHAB SERVICES AND MEDICAL EQUIPMENT. PT DENIES NEED FOR INPATIENT REHAB AND WANTS TO GO HOME WITH [facility] [facility] RESUMPTION. PT'S SPOUSE IN AGREEMENT WITH PLAN. PT REPORTS SHE FEELS WELL FOR DISCHARGE HOME TODAY, SPOUSE TO TRANSPORT. IMPORTANT MESSAGE FROM MEDICARE PROVIDED AND EXPLAINED. CM NOTIFIED [facility] OF INPATIENT REHAB. CM CALLED AND NOTIFIED MARINA AT [employer] ; PT PLACED BACK ON HOME HEALTH SCHEDULE FOR RESUMPTION OF HOME HEALTH. PT PLANS TO DISCHARGE HOME WITH SPOUSE. FAMILY TO TRANSPORT. FOR DISCHARGE, NOTIFY [facility], , FAX REFERRAL AND DISCHARGE INFORMATION TO [facility] AT [phone]. CM TO FOLLOW AND ASSIST NEEDED. Egg Breaking Machine Operator: Benito Rincon DCP- Discharge Planning Updated by [email or web address]: Benito Rincon on 07/09/18 8:[address] Patient Name: EWELINA HERRON Encounter No: [id number] : 1935 Primary Insurance: MEDICARE A & B Anticipated DC Date: 07-12-2018 Planned Disposition: Inpatient Rehab External Planned Provider: [facility] INPATIENT REHAB DCP follow-up note: CM MET WITH PT, SPOUSE, PT'S DAUGHTER AND SISI COLLINS IN ROOM. CM ADVISED THAT PT WILL NOT BE READY TO DISCHARGE IN THE NEXT 2 DAYS, PT NOT FEELING WELL, WILL NEED REHAB. CM DISCUSSED REHAB OPTIONS WITH PT AND FAMILY. PT'S SPOUSE STATES PT WILL NOT GO TO [facility] AND WILL ONLY GO TO REHAB AT [place]. PT STATES SHE HAS BEEN THERE RECENTLY AND DONE WELL. THEY BELIEVE PT CAN PARTICIPATE FULLY WITH THREE HOURS OF PROGRESSIVE THERAPY AND HAVE PLAN TO DISCHARGE HOME WITH SPOUSE AND [facility] AFTER REHAB. CM RECEIVED ORDER FOR INPATIENT REHAB PRESCREENING. CM WAITING MEDICAL STABILITY AND INPATIENT REHAB PRESCREENING / ADMISSION DETERMINATION FROM [facility] INPATIENT REHAB. Benito Rincon, CASE MANAGEMENT DCP- Discharge Planning Updated by [id number]: Benito Rincon on 07/07/18 3:[address] Patient Name: EWELINA HERRON Admission Status: ER Accout number: [id number] Admission Date: 07-03-2018 : 1935 Admission Diagnosis:SHORTNESS OF BREATH Attending: YOGI JOHNSON Current LOS: 4 Anticipated DC Date: Planned Disposition: Home with Home Health Primary Insurance: MEDICARE A & B PLANNED EXTERNAL PROVIDER: [facility] Discharge Planning Comments: CM MET WITH PT IN ROOM TO DISCUSS DISCHARGE PLANNING AND NEEDS. PT REPORTS LIVING AT HOME INDEPENDENTLY AND ALONE. PT WALKER AND BEDSIDE COMMODE WITH NO MEDICAL EQUIPMENT PROVIDER PREFERENCE. PT HAS HOME HEALTH FOR NURSING AND PHYSICAL THERAPY WITH [facility]. CM DISCUSSED AVAILABILITY OF HOME HEALTH, REHAB SERVICES AND MEDICAL EQUIPMENT. PT DENIES DISCHARGE NEEDS AND WANTS HOME HEALTH TO RESUME AT DISCHARGE. PROVIDER LISTING GIVEN, CHOICE SIGNED FOR [facility]; PT REPORTS HER DAUGHTER WILL PICK HER UP FOR DISCHARGE HOME. IMPORTANT MESSAGE FROM MEDICARE PROVIDED AND EXPLAINED. PT PLANS TO DISCHARGE HOME ALONE, FAMILY TO TRANSPORT. FOR DISCHARGE, NOTIFY [facility], , FAX REFERRAL AND DISCHARGE INFORMATION TO [facility] AT [phone]. TO FOLLOW AND ASSIST NEEDED. Egg Breaking Machine Operator: Benito Rincon DCPIA - Discharge Planning Initial Assessment Updated by [email or web address]: Benito Rincon on 07/12/18 8:38 am * Is the patient Alert and Oriented? Yes * How many steps to enter\exit or inside your home? NONE * PCP DR. REYNOSO * Pharmacy [facility] * Preadmission Environment Home with Family * ADLs Independent * Equipment Bedside Commode Walker * Other Equipment NO MEDICAL EQUIPMENT PROVIDER * List name and contact numbers for known caregivers / representatives who currently or will assist patient after discharge: ALESSANDRA LEE, R, * Verbal permission to speak to the caregivers and representatives has been obtained from the patient. Yes * Community resources currently utilized Home Health * Please name any agencies selected above. [facility], NURSING AND PHYSICAL THERAPY * Additional services required to return to the preadmission environment? No * Can the patient safely return to the preadmission environment? Yes * Has this patient been hospitalized within the prior 30 days at any hospital? Yes Coverage Notice Reviewer: [id number] Rincon Notice Issued Date-Time: 07/07/2018 9:40 Notice Type: Patient Choice Letter Notice Delivered To: Patient Relationship to Patient: Meter Reader Inspector Name: Delivery Method: HAND - Hand Delivered Joan Days: Prior Verbal Notification: Recipient Understood Notice: Yes Recipient Signature: Yes Med Rec Note Co-signed by Attending: Coverage Notice Comment: [facility] Reviewer: [id number] Rinocn Notice Issued Date-Time: 07/07/2018 9:40 Notice Type: IM Discharge Notice Notice Delivered To: Patient Relationship to Patient: Meter Reader Inspector Name: Delivery Method: HAND - Hand Delivered Joan Days: Prior Verbal Notification: Recipient Understood Notice: Yes Recipient Signature: Yes Med Rec Note Co-signed by Attending: Coverage Notice Comment: Reviewer: [id number] Rincon Notice Issued Date-Time: 07/12/2018 14:40 Notice Type: IM Discharge Notice Notice Delivered To: Patient Relationship to Patient: Meter Reader Inspector Name: Delivery Method: HAND - Hand Delivered Joan Days: Prior Verbal Notification: Recipient Understood Notice: Yes Recipient Signature: Yes Med Rec Note Co-signed by Attending: Coverage Notice Comment: Last DP export: 07/12/18 7:45 a Patient Name: EWELINA HERRON Page [phone] at 1153 All edits/amendments must be made on the electronic document DICTATION DATE: 07/12/181151 ACADEMIC SPECIALIST: PATTI 07/12/181151 RPT#: [id number] DC DATE: STATUS: ADM IN [facility] [address] [place] [address] END OF REPORT
[2018-07-12 12:00] VITALS: BP 98/58
--- NOTE | 2018-07-12 14:06 | NUR ---
DR MCKEON AND SISI REEVES ROUNDING. AND DTR AT BEDSIDE. PATIENT IS STABLE AND VSS. PATIENT DENIES ANY NEEDS OR PAIN. WILL CONTINUE TO MONITOR. SR UP X 2 BED IN LOW POSTION AND CALL LIGHT IN REACH.
[2018-07-12 14:56] VITALS: BP 108/57
[2018-07-12] MEDS ORDERED: LEVAQUIN750 MG PO (15:43)
--- NOTE | 2018-07-12 17:09 | MORECARE ---
CASE MANAGEMENT DISCHARGE SUMMARY PATIENT: EWELINA HERRON UNIT: [id number] ADM DATE: 07/03/18 AGE: 83 : 35 SEX: F ROOM/BED: D.0021 AUTHOR: RICKY,DOC PHYSICIAN: REFERRING PHYSICIAN: YOGI JOHNSON DO DATE OF SERVICE: 07/12/18 Discharge Plan Patient Name: EWELINA HERRON Facility: [facility]:[place] : 1935 Planned Disposition: Home with Home Health Anticipated Discharge Date: 07/12/18 Discharge Date: Expected LOS: 9 Initial Reviewer: AMILCAR Initial Review Date: 07/07/2018 Generated: 07/12/18 6:09 pm Comments DCP- Discharge Planning Updated by [email or web address]: Benito Rincon on 07/12/18 10:[address] Patient Name: EWELINA HERRON Encounter No: [id number] : 1935 Primary Insurance: MEDICARE A & B Anticipated DC Date: 07-12-2018 Planned Disposition: Home with Home Health External Planned Provider: [facility] Discharge Planning Comments: CM RECEIVED INPATIENT REHAB PRESCREEN, ADVISED BY ANI OF INPATIENT REHAB THEY WILL ACCEPT TODAY IF PT WANTS REHAB. CM MET WITH PT AND SPOUSE IN ROOM TO DISCUSS DISCHARGE PLANNING AND NEEDS. EWELINA HERRON provided verbal consent to discuss current and ongoing needs with/in the presence of: SPOUSE, JANN. CM DISCUSSED AVAILABILITY OF HOME HEALTH, REHAB SERVICES AND MEDICAL EQUIPMENT. PT DENIES NEED FOR INPATIENT REHAB AND WANTS TO GO HOME WITH [employer] [facility] RESUMPTION. PT'S SPOUSE IN AGREEMENT WITH PLAN. PT REPORTS SHE FEELS WELL FOR DISCHARGE HOME TODAY, SPOUSE TO TRANSPORT. IMPORTANT MESSAGE FROM MEDICARE PROVIDED AND EXPLAINED. CM NOTIFIED ANI OF INPATIENT REHAB. CM CALLED AND NOTIFIED MARINA AT [employer], ; PT PLACED BACK ON HOME HEALTH SCHEDULE FOR RESUMPTION OF HOME HEALTH. PT PLANS TO DISCHARGE HOME WITH SPOUSE. FAMILY TO TRANSPORT. FOR DISCHARGE, NOTIFY [facility], , FAX REFERRAL AND DISCHARGE INFORMATION TO [facility] AT [phone]. CM TO FOLLOW AND ASSIST NEEDED. Supervisor Gluing: Beinto Rincon DCP- Discharge Planning Updated by [id number]: Benito Rincon on 07/09/18 8:[address] Patient Name: EWELINA HERRON Encounter No: [id number] : 1935 Primary Insurance: MEDICARE A & B Anticipated DC Date: 07-12-2018 Planned Disposition: Inpatient Rehab External Planned Provider: [facility] INPATIENT REHAB DCP follow-up note: CM MET WITH PT, SPOUSE, PT'S DAUGHTER AND SISI COLLINS IN ROOM. CM ADVISED THAT PT WILL NOT BE READY TO DISCHARGE IN THE NEXT 2 DAYS, PT NOT FEELING WELL, WILL NEED REHAB. CM DISCUSSED REHAB OPTIONS WITH PT AND FAMILY. PT'S SPOUSE STATES PT WILL NOT GO TO INTERMEDIATE FACILITY AND WILL ONLY GO TO REHAB AT [place]. PT STATES SHE HAS BEEN THERE RECENTLY AND DONE WELL. THEY BELIEVE PT CAN PARTICIPATE FULLY WITH THREE HOURS OF PROGRESSIVE THERAPY AND HAVE PLAN TO DISCHARGE HOME WITH SPOUSE AND [facility] AFTER REHAB. CM RECEIVED ORDER FOR INPATIENT REHAB PRESCREENING. CM WAITING MEDICAL STABILITY AND INPATIENT REHAB PRESCREENING / ADMISSION DETERMINATION FROM [facility] INPATIENT REHAB. Benito Rincon, CASE MANAGEMENT DCP- Discharge Planning Updated by [email or web address]: Benito Rincon on 07/07/18 3:[address] Patient Name: EWELINA HERRON Admission Status: ER Accout number: [id number] Admission Date: 07-03-2018 : 1935 Admission Diagnosis:SHORTNESS OF BREATH Attending: YOGI JOHNSON Current LOS: 4 Anticipated DC Date: Planned Disposition: Home with Home Health Primary Insurance: MEDICARE A & B PLANNED EXTERNAL PROVIDER: [facility] Discharge Planning Comments: CM MET WITH PT IN ROOM TO DISCUSS DISCHARGE PLANNING AND NEEDS. PT REPORTS LIVING AT HOME INDEPENDENTLY AND ALONE. PT WALKER AND BEDSIDE COMMODE WITH NO MEDICAL EQUIPMENT PROVIDER PREFERENCE. PT HAS HOME HEALTH FOR NURSING AND PHYSICAL THERAPY WITH [facility]. CM DISCUSSED AVAILABILITY OF HOME HEALTH, REHAB SERVICES AND MEDICAL EQUIPMENT. PT DENIES DISCHARGE NEEDS AND WANTS HOME HEALTH TO RESUME AT DISCHARGE. PROVIDER LISTING GIVEN, CHOICE SIGNED FOR [employer] [facility]; PT REPORTS HER DAUGHTER WILL PICK HER UP FOR DISCHARGE HOME. IMPORTANT MESSAGE FROM MEDICARE PROVIDED AND EXPLAINED. PT PLANS TO DISCHARGE HOME ALONE, FAMILY TO TRANSPORT. FOR DISCHARGE, NOTIFY [employer] [facility], , FAX REFERRAL AND DISCHARGE INFORMATION TO [facility] AT [phone]. TO FOLLOW AND ASSIST NEEDED. Supervisor Gluing: Benito Rincon DCPIA - Discharge Planning Initial Assessment Updated by [email or web address]: Benito Rincon on 07/12/18 8:38 am * Is the patient Alert and Oriented? Yes * How many steps to enter\exit or inside your home? NONE * PCP DR. REYNOSO * Pharmacy [facility] * Preadmission Environment Home with Family * ADLs Independent * Equipment Bedside Commode Walker * Other Equipment NO MEDICAL EQUIPMENT PROVIDER * List name and contact numbers for known caregivers / representatives who currently or will assist patient after discharge: ALESSANDRA LEE, R, * Verbal permission to speak to the caregivers and representatives has been obtained from the patient. Yes * Community resources currently utilized Home Health * Please name any agencies selected above. [facility] HOME HEALTH, NURSING AND PHYSICAL THERAPY * Additional services required to return to the preadmission environment? No * Can the patient safely return to the preadmission environment? Yes * Has this patient been hospitalized within the prior 30 days at any hospital? Yes Coverage Notice Reviewer: [id number] Rincon Notice Issued Date-Time: 07/07/2018 9:40 Notice Type: Patient Choice Letter Notice Delivered To: Patient Relationship to Patient: Automotive Specialty Technician Name: Delivery Method: HAND - Hand Delivered Joan Days: Prior Verbal Notification: Recipient Understood Notice: Yes Recipient Signature: Yes Med Rec Note Co-signed by Attending: Coverage Notice Comment: [facility] Reviewer: [id number] Rincon Notice Issued Date-Time: 07/07/2018 9:40 Notice Type: IM Discharge Notice Notice Delivered To: Patient Relationship to Patient: Automotive Specialty Technician Name: Delivery Method: HAND - Hand Delivered Joan Days: Prior Verbal Notification: Recipient Understood Notice: Yes Recipient Signature: Yes Med Rec Note Co-signed by Attending: Coverage Notice Comment: Reviewer: [id number] Rincon Notice Issued Date-Time: 07/12/2018 14:40 Notice Type: IM Discharge Notice Notice Delivered To: Patient Relationship to Patient: Automotive Specialty Technician Name: Delivery Method: HAND - Hand Delivered Joan Days: Prior Verbal Notification: Recipient Understood Notice: Yes Recipient Signature: Yes Med Rec Note Co-signed by Attending: Coverage Notice Comment: Last DP export: 07/12/18 10:53 a Patient Name: EWELINA HERRON Page 41600 at 1709 All edits/amendments must be made on the electronic document DICTATION DATE: 07/12/181708 POLITICAL ADVISOR: PATTI 07/12/181708 RPT#: [id number] DC DATE: STATUS: ADM IN [facility] [address] [place] [address] END OF REPORT
--- NOTE | 2018-07-12 17:20 | MORECARE ---
CASE MANAGEMENT DISCHARGE SUMMARY PATIENT: EWELINA HERRON UNIT: [id number] ADM DATE: 07/03/18 AGE: 83 : 35 SEX: F ROOM/BED: D.9915 AUTHOR: RICKY,DOC PHYSICIAN: REFERRING PHYSICIAN: YOGI JOHNSON DO DATE OF SERVICE: 07/12/18 Discharge Plan Patient Name: EWELINA HERRON Facility: [facility]:[place] : 1935 Planned Disposition: Home with Home Health Anticipated Discharge Date: 07/12/18 Discharge Date: Expected LOS: 9 Initial Reviewer: AMILCAR Initial Review Date: 07/07/2018 Generated: 07/12/18 6:20 pm Comments DCP- Discharge Planning Updated by [email or web address]: Benito Rincon on 07/12/18 4:[address] Patient Name: EWELINA HERRON Encounter No: [id number] : 1935 Primary Insurance: MEDICARE A & B Anticipated DC Date: 07-12-2018 Planned Disposition: Home with Home Health External Planned Provider: [email or web address] Discharge Planning Comments: CM RECEIVED INPATIENT REHAB PRESCREEN, ADVISED BY ANI OF INPATIENT REHAB THEY WILL ACCEPT TODAY IF PT WANTS REHAB. CM MET WITH PT AND SPOUSE IN ROOM TO DISCUSS DISCHARGE PLANNING AND NEEDS. EWELINA HERRON provided verbal consent to discuss current and ongoing needs with/in the presence of: SPOUSE, JANN. CM DISCUSSED AVAILABILITY OF HOME HEALTH, REHAB SERVICES AND MEDICAL EQUIPMENT. PT DENIES NEED FOR INPATIENT REHAB AND WANTS TO GO HOME WITH [employer] [facility] RESUMPTION. PT'S SPOUSE IN AGREEMENT WITH PLAN. PT REPORTS SHE FEELS WELL FOR DISCHARGE HOME TODAY, SPOUSE TO TRANSPORT. IMPORTANT MESSAGE FROM MEDICARE PROVIDED AND EXPLAINED. CM NOTIFIED [facility] OF INPATIENT REHAB. CM CALLED AND NOTIFIED MARINA AT [employer], ; PT PLACED BACK ON HOME HEALTH SCHEDULE FOR RESUMPTION OF HOME HEALTH. PT PLANS TO DISCHARGE HOME WITH SPOUSE. FAMILY TO TRANSPORT. FOR DISCHARGE, NOTIFY [facility], , FAX REFERRAL AND DISCHARGE INFORMATION TO [email or web address] AT [phone]. CM TO FOLLOW AND ASSIST NEEDED. Hematologist: Benito Rincon Appended by Benito Rincon on 07/12/2018 17:16 CDT: CM RECEIVED DISCHARGE ORDER, CALLED ALESSANDRA AT [email or web address] [facility], , PT ON SCHEDULE FOR TOMORROW FOR RESUMPTION OF HOME HEALTH. CM FAXED REFERRAL AND DISCHARGE INFORMATION TO [email or web address] AT [phone]. REVENUE ENFORCEMENT AGENT NURSE NOTIFIED. Hematologist: Benito Rincon DCP- Discharge Planning Updated by [email or web address]: Benito Rincon on 07/09/18 8:[address] Patient Name: EWELINA HERRON Encounter No: [id number] : 1935 Primary Insurance: MEDICARE A & B Anticipated DC Date: 07-12-2018 Planned Disposition: Inpatient Rehab External Planned Provider: [facility] INPATIENT REHAB DCP follow-up note: CM MET WITH PT, SPOUSE, PT'S DAUGHTER AND SISI COLLINS IN ROOM. CM ADVISED THAT PT WILL NOT BE READY TO DISCHARGE IN THE NEXT 2 DAYS, PT NOT FEELING WELL, WILL NEED REHAB. CM DISCUSSED REHAB OPTIONS WITH PT AND FAMILY. PT'S SPOUSE STATES [facility] AND WILL ONLY GO TO REHAB AT [place]. PT STATES SHE HAS BEEN THERE RECENTLY AND DONE WELL. THEY BELIEVE PT CAN PARTICIPATE FULLY WITH THREE HOURS OF PROGRESSIVE THERAPY AND HAVE PLAN TO DISCHARGE HOME WITH SPOUSE AND [facility] HOME HEALTH RESUMPTION AFTER REHAB. CM RECEIVED ORDER FOR INPATIENT REHAB PRESCREENING. CM WAITING MEDICAL STABILITY AND INPATIENT REHAB PRESCREENING / ADMISSION DETERMINATION FROM [facility] INPATIENT REHAB. Benito Rincon, CASE MANAGEMENT DCP- Discharge Planning Updated by [email or web address]: Benito Rincon on 07/07/18 3:[address] Patient Name: EWELINA HERRON Admission Status: ER Accout number: [id number] Admission Date: 07-03-2018 : 1935 Admission Diagnosis:SHORTNESS OF BREATH Attending: YOGI JOHNSON Current LOS: 4 Anticipated DC Date: Planned Disposition: Home with Home Health Primary Insurance: MEDICARE A & B PLANNED EXTERNAL PROVIDER: [email or web address] Discharge Planning Comments: CM MET WITH PT IN ROOM TO DISCUSS DISCHARGE PLANNING AND NEEDS. PT REPORTS LIVING AT HOME INDEPENDENTLY AND ALONE. PT WALKER AND BEDSIDE COMMODE WITH NO MEDICAL EQUIPMENT PROVIDER PREFERENCE. PT HAS HOME HEALTH FOR NURSING AND PHYSICAL THERAPY WITH [facility]. CM DISCUSSED AVAILABILITY OF HOME HEALTH, REHAB SERVICES AND MEDICAL EQUIPMENT. PT DENIES DISCHARGE NEEDS AND WANTS HOME HEALTH TO RESUME AT DISCHARGE. PROVIDER LISTING GIVEN, CHOICE SIGNED FOR [email or web address]; PT REPORTS HER DAUGHTER WILL PICK HER UP FOR DISCHARGE HOME. IMPORTANT MESSAGE FROM MEDICARE PROVIDED AND EXPLAINED. PT PLANS TO DISCHARGE HOME ALONE, FAMILY TO TRANSPORT. FOR DISCHARGE, NOTIFY [email or web address], , FAX REFERRAL AND DISCHARGE INFORMATION TO [facility] AT [phone]. CM TO FOLLOW AND ASSIST NEEDED. Hematologist: Benito Rincon DCPIA - Discharge Planning Initial Assessment Updated by [email or web address]: Benito Rincon on 07/12/18 8:38 am * Is the patient Alert and Oriented? Yes * How many steps to enter\exit or inside your home? NONE * PCP DR. REYNOSO * Pharmacy [facility] * Preadmission Environment Home with Family * ADLs Independent * Equipment Bedside Commode Walker * Other Equipment NO MEDICAL EQUIPMENT PROVIDER * List name and contact numbers for known caregivers / representatives who currently or will assist patient after discharge: ALESSANDRA LEE, DTR, * Verbal permission to speak to the caregivers and representatives has been obtained from the patient. Yes * Community resources currently utilized Home Health * Please name any agencies selected above. [facility], NURSING AND PHYSICAL THERAPY * Additional services required to return to the preadmission environment? No * Can the patient safely return to the preadmission environment? Yes * Has this patient been hospitalized within the prior 30 days at any hospital? Yes External Providers [facility] Next Contact Date: 07/12/2018 Service Request Date: Service Type: Resolution: Reviewer: Comments: Coverage Notice Reviewer: [id number] Ceferino Rincon Notice Issued Date-Time: 07/07/2018 9:40 Notice Type: Patient Choice Letter Notice Delivered To: Patient Relationship to Patient: Secret Service Agent Name: Delivery Method: HAND - Hand Delivered Joan Days: Prior Verbal Notification: Recipient Understood Notice: Yes Recipient Signature: Yes Med Rec Note Co-signed by Attending: Coverage Notice Comment: [email or web address] Reviewer: [id number] Rincon Notice Issued Date-Time: 07/07/2018 9:40 Notice Type: IM Discharge Notice Notice Delivered To: Patient Relationship to Patient: Secret Service Agent Name: Delivery Method: HAND - Hand Delivered Joan Days: Prior Verbal Notification: Recipient Understood Notice: Yes Recipient Signature: Yes Med Rec Note Co-signed by Attending: Coverage Notice Comment: Reviewer: [id number] - Beniot Rincon Notice Issued Date-Time: 07/12/2018 14:40 Notice Type: IM Discharge Notice Notice Delivered To: Patient Relationship to Patient: Secret Service Agent Name: Delivery Method: HAND - Hand Delivered Joan Days: Prior Verbal Notification: Recipient Understood Notice: Yes Recipient Signature: Yes Med Rec Note Co-signed by Attending: Coverage Notice Comment: Last DP export: 07/12/18 4:09 p Patient Name: EWELINA HERRON Page [phone] at 1720 All edits/amendments must be made on the electronic document DICTATION DATE: 07/12/181718 MACHINE REPAIR PERSON: PATTI 07/12/181718 RPT#: [id number] DC DATE: STATUS: ADM IN [facility] [address] [place] [address] END OF REPORT
== END 2018-07-12 18:30 | disposition home health service (06) | DRG 292 ==
LOC: D.ER 17:29 → D.EDHOLD 19:31 → D.M2 19:31
PROVIDERS: Family Medicine; Internal Medicine Nephrology; ADMIT Family Medicine; ATTEND Family Medicine
DX: I11.0 Hypertensive heart disease with heart failure (principal); N17.9 Acute kidney failure, unspecified; I50.23 Acute on chronic systolic (congestive) heart failure; D64.9 Anemia, unspecified; I25.10 Atherosclerotic heart disease of native coronary artery without angina pectoris; E03.9 Hypothyroidism, unspecified; M81.0 Age-related osteoporosis without current pathological fracture; I08.1 Rheumatic disorders of both mitral and tricuspid valves; D50.9 Iron deficiency anemia, unspecified; E87.6 Hypokalemia; K59.00 Constipation, unspecified; I48.0 Paroxysmal atrial fibrillation; Z95.0 Presence of cardiac pacemaker; Z87.891 Personal history of nicotine dependence

== ENCOUNTER 2018-07-17 22:08 | Inpatient (IN) | payer MEDICARE, OTHER ==
[2018-07-17] VITALS (10 sets, daily range): BP systolic 61–142; BP diastolic 31–85
[~2018-07-17] VITALS: Ht 170.2 cm; Wt 87.1 kg
--- NOTE | ~2018-07-17 | HP ---
PATIENT: EWELINA HERRON MEDICAL RECORD: [id number] ACCOUNT: [id number] LOCATION:.[facility] D.2308 : 35 ADMISSION DATE: 07/18/18 PCP: NIK REYNOSO MD HISTORY AND PHYSICAL EXAMINATION HISTORY: This is a very pleasant 83-year-old white female who was brought in by ambulance after she had a fall at home. The patient had loss of consciousness that was noted by the EMS. Whenever they arrived there, they placed monitor pads on her and she was in asystole. The patient was intubated and appropriate EMS involvement was obtained. The patient was given epinephrine. She was not required to have any electrical shocks for defibrillation and the patient regained consciousness immediately. The fall was witnessed at home and ambulance had appropriate time and the patient was able to be intubated en route to the Emergency Room. She was stabilized by the ER physician. I evaluated the patient shortly thereafter. The patient was opening her eyes and able to move and follow commands. She was able to be extubated over the next 2 hours. Appropriate ABGs were obtained and monitoring was obtained. The patient was able to be moved to the ICU for further evaluation. The patient had a recent pacemaker placement in the past and has been followed by cardiology. PAST MEDICAL HISTORY: Significant for CHF; hypertension; coronary artery disease, PTCA times 2; atrial fib; syncope; hypothyroidism; diverticulosis; osteoarthritis; obesity; and some vision changes with age. The patient has hyperlipidemia and osteopenia. PAST SURGICAL HISTORY: Includes PTCA times 2, pacemaker placement, hysterectomy, and cataract surgery. MEDICATIONS: As listed in the MAR sheet. ALLERGIES: SHE IS ALLERGIC TO SULFA. REVIEW OF SYSTEMS: Unable to obtain at this time due to intubation. PHYSICAL EXAMINATION:. VITAL SIGNS: As listed on the ER sheet. GENERAL: She is a well-developed and well-nourished 83-year-old obese white female that is intubated and appropriate stabilization noted. HEENT: Pupils are equal, round, and reactive to light. Extraocular movements are intact. The patient is able to follow commands and is able to do the hard cough. No nuchal rigidity is noted. She does have a small laceration that is being treated by the ER physician appropriately with prasad on the posterior scalp. NECK: Supple. LUNGS: Coarse breath sounds heard bilaterally, especially in the left base. HEART: Irregular rate and rhythm with I/ systolic ejection murmur. ABDOMEN: Obese, soft, and nontender. Positive bowel sounds. No hepatosplenomegaly or masses. EXTREMITIES: She does have sensation present. Bruising is present on the dorsal aspect of both feet. Trace edema is noted as well. ASSESSMENT: 1. Syncope. 2. Arrhythmia with asystole. 3. History of coronary artery disease. HISTORY AND PHYSICAL [id number] EWELINA HERRON 4. Hypothyroidism. 5. Hypertension. 6. CHF. 7. Hyperlipidemia. 8. Respiratory distress. 9. Trauma with the fall. We will make sure that appropriate intervention is done. CT of the head to be obtained. CT of the spine to be obtained as well. Pulmonary monitoring in the ICU. Cardiology consultation. Check labs appropriately. TRANSINT:[id number] Voice Confirmation ID: [id number] DOCUMENT ID: [id number] STEVE PATEL MD CC: [id number] DICTATION DATE: 07/18/18 1411 ANNOUNCER: 07/18/18 1743 ADM IN [facility] [address] [id number]
--- NOTE | ~2018-07-17 | HEMODYNAMI ---
PATIENT:EWELINA HERRON MEDICAL RECORD: [id number] : 35 LOCATION:[facility] D.2308 ADMISSION DATE: 07/18/18 Generatedon:07/18/201810:31 Patient name: EWELINA HERRON Patient #: [id number] SSN: : Date of study: 07/18/2018 Page: Of Hemodynamic Procedure Report Patient Data Patient Demographics Procedure consent was obtained First Name: EWELINA Gender: Female Last Name: GERMAINE : 1935 [facility] Initial: JACINTO Age: 83 year(s) Patient #: [id number] Race: Unknown Additional ID: [id number] Contact details [address]: [address] [place] [address] State: [place] City: [place] Zip code: [address] Past Medical History Allergies Allergen Reaction Date Comments Reported Other allergy 07/27/2017 Sulfa Other allergy 04/20/2018 sulfa Sulfa drugs 07/18/2018 Admission Admission Data Admission Date: 07/18/2018 Admission Time: 0:43 Room #: D.2308 Height (in.): 66.93 BSA: 1.96 (m2) Height (cm.): 170 BMI: 29.07 (kg/m2) Weight (lbs.): 185.19 Weight (kg.): 84 Lab Results Lab Result Date: 07/18/2018 Lab Result Time: 0:00 Biochemistry Name Units Result Min Max BUN mg/dl 26 --(----)-* 7 18 Creatinine mg/dl 1.8 --(----)-* 0.6 1.3 CBC Name Units Result Min Max Hematocrit % 37.4 *-(----)-- 42 54 Hemoglobin g/dl 11.9 *-(----)-- 13.5 17.5 Procedure Procedure Types Cath Procedure Diagnostic Procedure LHC LHC w/Coronaries Procedure Description Procedure Date Procedure Date: 07/18/2018 Procedure Start Time: 10:14 Procedure End Time: 10:30 Procedure Staff Name Function Marco Antonio Gomez MD Performing Physician Chaz Sena RT Monitor Sallyblayne Giles RT Scrub Marge Mortensen RN Nurse Procedure Data Cath Procedure Fluoroscopy Diagnostic fluoroscopy Total fluoroscopy Time: 1.4 time: 1.4 min min Diagnostic fluoroscopy Total fluoroscopy dose: 260 dose: 260 mGy mGy Contrast Material Contrast Material Type Amount (ml) Isovue 300 37 Entry Location Entry Primary Successful Side Size Upsize Upsize Entry Closure Succes sful Closure Location (Fr) 1 (Fr) 2 (Fr) Remarks Device Remarks Femoral Right 5 Fr Exoseal artery Estimated blood loss: 10 ml Diagnostic catheters Device Type Used For End Catheter Placement MULTIPACK JL 4.0 5Fr Procedure catheter MULTIPACK 3DRC 5Fr Procedure catheter MULTIPACK Pigtail 5 Fr Procedure catheter Procedure Complications No complications Procedure Medications Medication Administration Route Dosage Oxygen etCO2 Nasal cannula 2 l/min Lidocaine 2% added to field 20 Heparin Flush Bag added to field 2 bags (1000units/500ml NS) 0.9% NaCl I.V. 100 ml/hr Levophed (8mg/250ml I.V. drip 12 mcg/min D5W) Fentanyl I.V. 50 mcg Lopressor I.V. 5 mg Amiodarone Loading I.V. drip 150 mg Dose (150mg/100ml D5W) Hemodynamics Rest BSA: 1.96 (m2) HGB: 11.9 (g/dl) O2 Consumption: Estimated: 174.07 (ml/min) O2 Co nsumption indexed: Estimated:88.81 (ml/min/m) Heart Rate: 69 (bpm) Snapshots Pre Cath Intra NCS Post Cath Vital Signs Time Heart Resp SPO2 etCO2 NIBP Rhythm Pain Status Sedation Rate (ipm) (%) (mmHg) (mmHg) Level (bpm) 10:05:33 55 18 97 0 Measuring NSR 8 (11) , 10(A) Utterly horrible 10:06:24 52 21 97 0 115/48(71) NSR 8 (11) , 10(A) Utterly horrible 10:10:46 73 26 96 0 106/57(85) NSR 8 (11) , 10(A) Utterly horrible 10:15:02 40 21 96 0 84/67(79) NSR 8 (11) , 10(A) Utterly horrible 10:19:06 35 20 98 0 102/74(84) NSR 5 (11) , 10(A) Very distressing 10:23:24 39 17 98 0 96/59(73) NSR 5 (11) , 10(A) Very distressing 10:27:40 71 20 95 0 88/43(72) NSR 5 (11) , 10(A) Very distressing Medications Time Medication Route Dose Verified Delivered Reason Notes Ef fectiveness by by 10:03:17 Oxygen etCO2 2 l/min Marco Antonio Buffie used for Nasal Jason Mortensen RN procedure cannula 10:03:25 Lidocaine 2% added 20ml Marco Antonio Buffie used for to vial Jason Mortensen RN procedure field 10:03:36 Heparin Flush added 2 bags Marco Antonio Marco Antonio used for Bag to Jason Gomez MD procedure (1000units/500ml field NS) 10:04:12 Levophed I.V. 12 Marco Antonio Buffie Per Cont (8mg/250ml D5W) drip mcg/min Jason Mortensen RN physician from ICU 10:04:12 0.9% NaCl I.V. 100 Marco Antonioiwona Mccordie Per ml/hr Jason Mortensen RN physician 10:07:21 Lopressor I.V. 5 mg Marco Antonio Mccordie Per Jason Mortensen RN physician 10:13:12 Fentanyl I.V. 50 mcg Marco Antonio Buffie for Jason Mortensen RN sedation 10:22:23 Amiodarone I.V. 150 mg Marco Antonio Mccordie Per Loading Dose drip Jason Mortensen RN physician (150mg/100ml D5W) Procedure Log Time Note 9:38:09 Signed procedure consent form obtained from patient. 9:38:10 Diagnostic Cath status Urgent 9:38:13 Time tracking: Call back (After hours or weekends) 9:38:21 Plan of Care:Hemodynamics will remain stable., Cardiac rhythm will remain stable., Comfort level will be maintained., Respiratory function will remain adequate., Patient/ family verbilizes understanding of procedure., Procedure tolerated without complication., Recovers from procedure without complications.. 9:38:59 Patient allergic to Sulfa drugs 9:39:09 Cahz MCCANN(R) sent for patient. Start room use. 9:40:47 Lab Result : BUN 26 mg/dl 9:40:47 Lab Result : Creatinine 1.8 mg/dl 9:40:47 Lab Result : Hematocrit 37.4 % 9:40:47 Lab Result : Hemoglobin 11.9 g/dl 9:41:01 Patient Weight : 185.19 lbs 9:41:04 Patient Height : 66.93 inches 9:54:45 Patient received from ICU to CCL 1 Alert and oriented. Tansferred to table in Supine position. 9:54:46 Warm blankets applied, and carl hugger turned on for patient comfort. 9:54:46 Correct patient and procedure confirmed by team. 9:54:47 ECG and BP/O2 sat monitors applied to patient. 10:03:17 Oxygen 2 l/min etCO2 Nasal cannula was administered by Marge Mortensen RN; used for procedure; 10:03:25 Lidocaine 2% 20ml vial added to field was administered by Marge Mortensen RN; used for procedure; 10:03:36 Heparin Flush Bag (1000units/500ml NS) 2 bags added to field was administered by Marco Antonio Gomez MD; used for procedure; 10:03:44 Vital chart was started 10:04:12 Levophed (8mg/250ml D5W) 12 mcg/min I.V. drip was administered by Marge Mortensen RN; Per physician; Cont from ICU 10:04:12 0.9% NaCl 100 ml/hr I.V. was administered by Marge Mortensen RN; Per physician; 10:07:05 Baseline sample Acquired. 10:07:13 Rhythm: paced 10:07:14 Full Disclosure recording started 10:07:20 H&P Date Dictated: 07/18/2018 Within 30 days and on chart.. 10:07:21 Lopressor 5 mg I.V. was administered by Marge Mortensen RN; Per physician; 10:07:21 Pre-procedure instructions explained to patient. 10:07:21 Pre-op teaching completed and patient verbalized understanding. 10:07:32 Family in patients room. 10:07:34 Patient NPO since Midnight. 10:07:35 Is the patient allergic to Iodine/contrast media? No. 10:08:02 Is patient on blood thinner?Yes 10:08:06 ACC The patient was administered the following blood thiners within the last 24 hours: Xarelto 10:08:09 Patient diabetic? Yes. 10:08:11 If diabetic: On Metformin? Unknown 10:08:14 Previous problem with sedation/anesthesia? No ? 10:08:17 Snore? No 10:08:18 Sleep apnea? No 10:08:19 Deviated septum? No 10:08:20 Opens mouth fully? Yes 10:08:21 Sticks out tongue? Yes 10:08:33 Airway obstruction? No ? 10:08:35 Dentures? No ? 10:08:39 Pre procedure: right dorsailis pedis pulse 1+ Palpable, but thready & weak; easily obliterated 10:08:42 Patient pain scale 0/10 ?. 10:08:46 IV patent on arrival in left forearm with 0.9% NaCl at [facility]. 10:08:48 Lab results completed and on chart. 10:08:52 Right groin area was prepped with chlora-prep and draped in sterile fashion 10:08:54 Alarms reviewed by R. N. 10:08:55 Sharps counted by scrub and verified by R.N. 10:08:58 Use device set Femoral Dx 10:09:01 Tegaderm 4 x 4 (1626W) opened to sterile field. 10:09:01 ACIST Manifold (05075) opened to sterile field. 10:09:02 ACIST Hand Control (68328) opened to sterile field. 10:09:03 ACIST Syringe (51397) opened to sterile field. 10:09:03 Bag Decanter (2002S) opened to sterile field. 10:09:04 Medline Cath Pack ([id number]) opened to sterile field. 10:09:04 DIAGNOSTIC WIRE .035 260cm J wire (008865) opened to sterile field. 10:09:08 DIAGNOSTIC Multipack 5Fr catheter set (UU2477) opened to sterile field. 10:09:09 SHEATH 5FR [place] (SPQ697) opened to sterile field. 10:11:15 --------ALL STOP TIME OUT------ 10:11:16 Final Timeout: patient, procedure, and site verified with staff and physician. All members of the team are in agreement. 10:11:21 Right groin site verified by team. 10:11:25 Maximum allowable Isovue 300 dose 233ml. Physician notified. (300ml for normal creatinines. For patients with creatinine of 1.7 or higher multiply weight(kg) x 5 divided by creatinine.) 10:11:30 Fire Safety Assessment: A--An alcohol-based skin anteseptic being used preoperatively., C--Open oxygen or nitrous oxide is being used., D--An ESU, laser, or fiber-optic light is being used. 10:11:32 Physical assessment completed. ASA score P 4 - A patient with severe systemic disease that is a constant threat to life as per Marco Antonio Gomez MD. 10:11:35 Sedation plan: IV Moderate Sedation Medication:Versed, Fentanyl 10:13:12 Fentanyl 50 mcg I.V. was administered by Marge Mortensen RN; for sedation; 10:14:36 IV Extension Set opened to sterile field. 10:14:45 Procedure started. 10:14:50 Local anesthetic to right femoral artery with Lidocaine 2% by Marco Antonio Gomez MD.INITIAL ACCESS ONLY 10:16:34 A 5 Fr sheath was inserted into the Right Femoral artery 10:17:07 A MULTIPACK JL 4.0 5Fr catheter was advanced over the wire and used for Procedure. 10:17:40 LCA angiography performed. 10:17:42 Catheter removed. 10:17:47 A MULTIPACK 3DRC 5Fr catheter was advanced over the wire and used for Procedure. 10:17:59 RCA angiography performed. 10:18:00 Catheter removed. 10:18:04 A MULTIPACK Pigtail 5 Fr catheter was advanced over the wire and used for Procedure. 10:19:20 LV angiography performed. 10:19:22 LV gram done using COHEN 10:19:30 EF : 35 % 10:19:50 Injector settings: Ml/sec: 7, Volume: 15, 10:19:52 Catheter removed. 10:19:55 EXOSEAL 5Fr (EX500) opened to sterile field. 10:20:05 Sheath removed intact; hemostasis achieved with Exoseal to the Right Femoral artery. 10:20:08 Procedure ended.(Physican Out) 10:20:22 Fluoroscopy time 01.40 minutes. 10:20:36 Fluoroscopy dose: 260 mGy 10:20:36 Flurop Dose total: 260 10:20:48 Contrast amount:Isovue 300 37ml. 10:21:09 Sharps counted by scrub and verified by R.N. 10:21:11 Insertion/operative site no bleeding no hematoma. 10:21:19 Post Procedure Pulses reassessed and unchanged 10::23 Post-procedure physical assessment completed. ASA score P 2 - A patient with mild systemic disease as per Marco Antonio Gomez MD. 10:21:26 Post procedure rhythm: unchanged. 10::30 Estimated blood loss: 10 ml 10:22:23 Amiodarone Loading Dose (150mg/100ml D5W) 150 mg I.V. drip was administered by Marge Mortensen RN; Per physician; 10:23:03 Post procedure instruction explained to patient.Patient verbalizes understanding. 10:23:03 Patient needs reinforcement of post procedure teaching. 10:23:11 Procedure and supply charges have been captured, reviewed, submitted and are correct. 10:23:15 Procedure Complication : No complications 10:30:19 Vital chart was stopped 10:30:20 See physician's report for complete and final results. 10:30:22 Report given to ICU. 10:30:26 Patient transfered to ICU with Bed. 10:30:29 Procedure ended. 10:30:29 Full Disclosure recording stopped 10:31:01 End room use (Document Last) Device Usage Item Name Manufacture Quantity Catalog Hospital Part Current Minimal L ot# / Number Charge Number Stock Stock Serial# Code Tegaderm 4 3M 1 1626W [id number] 332222 014646 5 x 4 (1626W) ACIST Acist 1 60867 853243 443334 618770 5 Manifold Medical (22366) Systems Inc ACIST Hand Acist 1 79155 234141 670600 269287 5 Control Medical (74439) Systems Inc ACIST Acist 1 72995 203569 387925 835821 20 Syringe Medical (79147) Systems Inc Bag Microtek 1 418271 84882 535634 5 Decanter Medical Inc. () Medline Medline 1 [id number] 551188 18068 573227 5 Cath Pack ([id number]) DIAGNOSTIC St Yousuf 1 566213 459335 275160 343597 30 WIRE .035 260cm J wire (296067) DIAGNOSTIC Cardinal 1 KZ7332 574149 75721 241826 30 Platter Health 5Fr catheter set (UD0882) SHEATH 5FR Terumo 1 IRL008 286416 737493 427240 5 [place] (SEX316) IV Hospira 1 39979-41 823756 66503 668866 5 Extension Set MULTIPACK Cardinal 1 685899 5 JL 4.0 5Fr Health catheter MULTIPACK Cardinal 1 756933 5 3DRC 5Fr Health catheter MULTIPACK Cardinal 1 314005 5 Pigtail 5 Health Fr catheter EXOSEAL 5Fr Cardinal 1 EX500 522180 406799 782169 10 (EX500) Health Signature Audit [place] Stage Time Signature Unsigned Intra-Procedure 07/18/2018 Chaz Sena 10:31:17 AM RT(R) Signatures Monitor : Chaz Sena RT Signature : Date : Time : [id number] [place] [address]
[~2018-07-17 22:08] MED LIST changes: +LEVAQUIN750 MG PO
[2018-07-17 23:22] LABS: BASOPHILS 0.1 % (0-2); EOSINOPHILS 0.8 % (0-7); HEMATOCRIT 37.4 % (36.0-48.0); HEMOGLOBIN 11.9 g/dL (12-16); IMMATURE GRANULOCYTES 1.8 % (0-5); LYMPHOCYTES 6.8 % (15-50); MCH 28.1 pg (26.0-34.0); MCHC 31.8 g/dL (31.0-37.0); MCV 88.4 fL (80.0-100.0); MEAN PLATELET VOLUME 9.5 fL (7.4-10.4); MONOCYTES 4.7 % (2-11); NEUTROPHILS 85.8 % (40-80); PLATELET COUNT 343 10x3/uL (130-400); RBC 4.23 10x6/uL (4.00-5.40); RDW 16.9 % (11.5-14.5); WBC 15.4 10x3/uL (4.8-10.8)
[2018-07-17 23:33] LABS: APTT 30.5 SECONDS (22.8-39.4); INR 2.41 (0.85-1.17); PROTIME 25.5 SECONDS (11.6-15.0)
[2018-07-17] MEDS ORDERED: PACERONE100 MG (23:50)
[2018-07-17] MEDS ORDERED: ENTRESTO 24 MG1 EACH (23:51)
[2018-07-18] VITALS (103 sets, daily range): BP systolic 68–133; BP diastolic 38–93; BMI 28.9
[2018-07-18] LABS: ALBUMIN 2.4 g/dL (3.4-5.0); ALKALINE PHOSPHATASE 152 U/L (46-116); ALT (SGPT) 141 U/L (10-68); BILIRUBIN - TOTAL 0.73 mg/dL (0.2-1.3); CALC OSMOLALITY 289 mosm/kg (275-300); CALCIUM 8.3 mg/dL (8.5-10.1); CARBON DIOXIDE 20.9 mmol/L (21.0-32.0); CHLORIDE - SERUM 109 mmol/L (98-107); CREATININE - SERUM 1.8 mg/dL (0.6-1.3); POTASSIUM - SERUM 4.2 mmol/L (3.5-5.1); PROTEIN - SERUM 5.8 g/dL (6.4-8.2); SODIUM 140 mmol/L (136-145); UREA NITROGEN 26 mg/dL (7-18); eGFR NON AFRICAN AMERICAN 28 mL/min (90-120)
[2018-07-18 00:01] LABS: GLUCOSE 208 mg/dL (74-106)
[2018-07-18 00:16] LABS: CKMB 4.3 U/L (0.0-3.6); CREATINE KINASE 177 UL (21-215); MAGNESIUM - SERUM 1.8 mg/dL (1.8-2.4); THYROID STIMULATING HORMONE 10.94 uIU/mL (0.36-3.74)
[2018-07-18 00:20] LABS: TROPONIN-I 0.193 ng/mL (0.000-0.060)
[2018-07-18 00:24] LABS: APPEARANCE CLEAR (CLEAR); BILIRUBIN NEGATIVE (NEGATIVE); COLOR YELLOW (YELLOW); GLUCOSE NEGATIVE (NEGATIVE); KETONE SMALL mg/dL (NEGATIVE); NITRITE NEGATIVE (NEGATIVE); PROTEIN NEGATIVE (NEGATIVE); UROBILINOGEN NORMAL (NORMAL)
[2018-07-19] VITALS (33 sets, daily range): BP systolic 88–139; BP diastolic 44–84; Ht 170.2 cm; Wt 87.1 kg
[2018-07-19 04:32] LABS: BASOPHILS 0.2 % (0-2); EOSINOPHILS 0.2 % (0-7); HEMATOCRIT 33.9 % (36.0-48.0); HEMOGLOBIN 10.8 g/dL (12-16); IMMATURE GRANULOCYTES 0.6 % (0-5); LYMPHOCYTES 6.4 % (15-50); MCH 28.1 pg (26.0-34.0); MCHC 31.9 g/dL (31.0-37.0); MCV 88.3 fL (80.0-100.0); MONOCYTES 9.2 % (2-11); NEUTROPHILS 83.4 % (40-80); PLATELET COUNT 291 10x3/uL (130-400); RBC 3.84 10x6/uL (4.00-5.40); RDW 17.5 % (11.5-14.5); WBC 12.5 10x3/uL (4.8-10.8)
[2018-07-19 04:55] LABS: ALBUMIN 2.3 g/dL (3.4-5.0); ANION GAP 14.8 mmol/L (8-16); BILIRUBIN - TOTAL 0.86 mg/dL (0.2-1.3); CALCIUM 7.8 mg/dL (8.5-10.1); CARBON DIOXIDE 20.9 mmol/L (21.0-32.0); CREATININE - SERUM 1.8 mg/dL (0.6-1.3); MAGNESIUM - SERUM 2.2 mg/dL (1.8-2.4); PHOSPHOROUS 2.6 mg/dL (2.5-4.9); POTASSIUM - SERUM 4.7 mmol/L (3.5-5.1); PROTEIN - SERUM 5.6 g/dL (6.4-8.2); THYROID STIMULATING HORMONE 4.59 uIU/mL (0.36-3.74)
[2018-07-20] VITALS: BP 120/74
[2018-07-20 04:20] VITALS: BP 132/68
[2018-07-20 09:16] VITALS: BP 152/74
[2018-07-20] MEDS ORDERED: FUROSEMIDE20 MG PO (10:35)
[2018-07-20] MEDS ORDERED: TOPROL XL25 MG PO (10:37)
[2018-07-20] MEDS ORDERED: GLUCOPHAGE500 MG PO (10:38)
[2018-07-20] MEDS ORDERED: PACERONE200 MG PO (10:38)
[2018-07-20] MEDS ORDERED: K-DUR20 MEQ PO (10:39)
[2018-07-20 12:38] VITALS: BP 134/49
[2018-07-20 17:01] VITALS: BP 136/64
[2018-07-20 20:00] VITALS: BP 113/58
[2018-07-21] VITALS: BP 119/57
[2018-07-21 04:00] VITALS: BP 126/68
[2018-07-21 07:56] VITALS: BP 133/57
[2018-07-21 09:37] LABS: BASOPHILS 0.1 % (0-2); EOSINOPHILS 0.2 % (0-7); HEMATOCRIT 33.2 % (36.0-48.0); HEMOGLOBIN 10.9 g/dL (12-16); LYMPHOCYTES 2.6 % (15-50); MCH 28.4 pg (26.0-34.0); MCHC 32.8 g/dL (31.0-37.0); MCV 86.5 fL (80.0-100.0); MEAN PLATELET VOLUME 10.7 fL (7.4-10.4); MONOCYTES 8.6 % (2-11); NEUTROPHILS 87.5 % (40-80); PLATELET COUNT 130 10x3/uL (130-400); RBC 3.84 10x6/uL (4.00-5.40); RDW 17.4 % (11.5-14.5); WBC 18.3 10x3/uL (4.8-10.8)
[2018-07-21 09:51] LABS: ANION GAP 13.6 mmol/L (8-16); CALCIUM 8.2 mg/dL (8.5-10.1); CREATININE - SERUM 1.1 mg/dL (0.6-1.3)
[2018-07-21 09:52] LABS: POTASSIUM - SERUM 5.6 mmol/L (3.5-5.1)
[2018-07-21 11:54] VITALS: BP 128/63
[2018-07-21 16:16] VITALS: BP 134/61
[2018-07-21 20:00] VITALS: BP 147/60
[2018-07-22] VITALS: BP 142/68
[2018-07-22 04:00] VITALS: BP 140/73
[2018-07-22 05:42] LABS: ANION GAP 16.3 mmol/L (8-16); CALCIUM 8.6 mg/dL (8.5-10.1); CARBON DIOXIDE 20.7 mmol/L (21.0-32.0); CREATININE - SERUM 1.2 mg/dL (0.6-1.3)
[2018-07-22 05:52] LABS: HEMATOCRIT 33.5 % (36.0-48.0); HEMOGLOBIN 10.5 g/dL (12-16); RBC 3.73 10x6/uL (4.00-5.40)
[2018-07-22 05:53] LABS: BASOPHILS 0 % (0-2); EOSINOPHILS 0 % (0-7); IMMATURE GRANULOCYTES 1.1 % (0-5); LYMPHOCYTES 3.6 % (15-50); MCH 28.2 pg (26.0-34.0); MCHC 31.3 g/dL (31.0-37.0); MCV 89.8 fL (80.0-100.0); MEAN PLATELET VOLUME 10.4 fL (7.4-10.4); NEUTROPHILS 87.3 % (40-80); PLATELET COUNT 287 10x3/uL (130-400); RDW 17.6 % (11.5-14.5); WBC 19.2 10x3/uL (4.8-10.8)
--- NOTE | 2018-07-23 16:41 | CN ---
PATIENT NAME:EWELINA VAZQUEZ MEDICAL RECORD: [id number] : 35 LOCATION:[facility].2308 ADMIT DATE: 07/18/18 ACCOUNT: [id number] CONSULTING PHYSICIAN: JUSTINO MORATAYA MD REFERRING PHYSICIAN: STEVE PATEL MD DATE OF CONSULTATION: 07/18/2018 DIAGNOSES: 1. Syncope. 2. Wide complex tachycardia. 3. Prolonged QT. 4. Coronary artery disease. 5. Non-Q-wave myocardial infarction. 6. Unstable angina. 7. Cardiomyopathy. 8. Paroxysmal atrial fibrillation. 9. Sick sinus syndrome. 10. Status post pacemaker. 11. Renal insufficiency. 12. Anemia. 13. Coronary artery disease. 14. Previous percutaneous transluminal coronary angioplasty stent. 15. Hypertension. 16. Hyperlipidemia. 17. Congestive heart failure, chronic systolic function. 18. Cardiomyopathy. HISTORY OF PRESENT ILLNESS: Mrs. Vazquez presents with syncope. She was recently hospitalized with pneumonia, put on Levaquin. She has a QT interval greater than 600 at this point. She is on Pacerone, as well as metoprolol. She continues to have a wide complex tachycardia. Her troponin is elevated. She has chest pressure and chest pain. She actively is having chest pain now at 6-7/10. She continues to have the tachyarrhythmia. Her EKG is paced ventricular with episodes of wide complex tachycardia. PHYSICAL EXAMINATION: GENERAL APPEARANCE: Well-nourished, well-developed, appears stated age. Level of distress, comfortable. PSYCHIATRIC: Mental status, alert, normal affect. Orientation, oriented to time, place and person. EYES: Lids and conjunctiva, noninjected. No discharge, no pallor. ENT: Lips, teeth, gums, normal dentition. Oropharynx, no cyanosis, no pallor. NECK: Carotid arteries, bilateral normal upstroke, no bruits, no thrills. JUGULAR VEINS: No jugular venous pressure or distention. CERVICAL LYMPH NODES: Nontender, nonenlarged. THYROID: Not enlarged. Nontender. No nodules. LUNGS: Respiratory effort, unlabored. CHEST: Normal curvature. No thoracic deformity. No chest wall tenderness. Percussion, resonant. Auscultation, clear. No wheezes, no rales, no rhonchi. CARDIOVASCULAR: Precordial exam, nondisplaced. No heaves or pericardial thrills. Rate and rhythm, regular. Heart sounds, normal S1, normal S2. No S3, no gallop, no rub. Systolic murmur, not heard. Diastolic murmur, not heard. EXTREMITIES: No cyanosis, no edema. Peripheral pulses, full and equal in all extremities, except as noted. No bruits appreciated. ABDOMEN: Soft, nondistended. Normal aorta. No bruit. Nontender. No masses. CONSULT REPORT [id number] EWELINA VAZQUEZ Liver, nontender, no hepatomegaly. Spleen, nontender, no splenomegaly. MUSCULOSKELETAL: No joint tenderness. No joint swelling. No erythema. NEUROLOGICAL: Normal gait, normal strength, normal tone. SKIN: Warm and dry. OVERALL IMPRESSION: 1. Wide complex tachycardia, most likely secondary to prolongation of her QT interval with the addition of the Levaquin to her medical regimen. We will obviously discontinue the Levaquin, increase her beta blockade as blood pressure tolerates it. Continue her amiodarone. 2. Ischemic heart disease is very unlikely contributing to her dysrhythmia as well. She has active chest pressure. Her last cardiac intervention was in February and troponin is elevated. We will proceed with coronary angiography. Further care depends upon the findings of the angiography. From the dysrhythmia standpoint as well, we will interrogate the pacemaker for further evaluation of the dysrhythmia. TRANSINT:[id number] Voice Confirmation ID: [id number] DOCUMENT ID: [id number] JUSTINO MORATAYA MD at 1641 CC: [id number] DICTATION DATE: 07/18/18940 SOLUTION DIRECTOR: 07/18/181803 DIS IN 07/22/18 [facility] [address] [id number]
--- NOTE | 2018-07-23 16:41 | OP ---
PATIENT NAME: EWELINA HERRON MEDICAL RECORD: [id number] :35 LOCATION:D.[facility] D.2308 ADMISSION DATE:07/18/18 SURGEON: JUSTINO MORATAYA MD DATE OF OPERATION: 07/18/2018 DATE OF SERVICE: 07/18/2018. PROCEDURES: 1. Left heart catheterization. 2. Selective coronary angiography. 3. Left ventriculogram. 4. Pacemaker interrogation. INDICATION: A wide complex tachycardia, coronary artery disease, angina, elevated troponin, non-Q-wave myocardial infarction, and previous PTCA stent. PROCEDURE IN DETAIL: After informed consent was obtained and after a detailed description of risks, benefits as well as alternative therapies, the patient elected to proceed with angiogram and heart catheterization. The right femoral area was prepped and draped in normal sterile fashion. Right femoral artery was cannulated via modified Seldinger technique with placement of 5-Slovenian sheath. All catheters exchanged through this sheath. FINDINGS: The left ventriculogram was performed in standard 30-degree COHEN view, reveals global hypokinesis throughout all segments. Overall ejection fraction 35%; however, this is unchanged from previous angiography and echocardiogram. SELECTIVE CORONARY ANGIOGRAPHY: 1. Left main has no significant angiographic disease. 2. Left anterior descending has previously placed stent that is widely patent. There is no significant restenosis. No disease elsewise throughout the LAD or its branches. 3. The left circumflex has moderate irregularities, but no flow-limiting stenosis. 4. Right coronary has moderate irregularities, but no flow-limiting stenosis. 5. Pacemaker was interrogated. She is having episodes of atrial fibrillation. OVERALL IMPRESSION: Wide patency of the previously placed stent. Increased troponin is secondary to the tachyarrhythmia. Center medical management on treatment of the dysrhythmia. TRANSINT:[id number] Voice Confirmation ID: [id number] DOCUMENT ID: [id number] JUSTINO MORATAYA MD at 1641 CC: [id number] DICTATION DATE: 07/18/18 1025 REPAIR TECHNICIAN: 07/18/18 1828 DIS IN 07/22/18 [id number] [place] [address]
== END 2018-07-22 07:05 ==
LOC: D.ER 22:08 → D.M2 07-18 00:43 → D.EDHOLD 07-18 00:43 → D.ICU 07-18 00:57 → D.M2 07-19 16:19 → D.ICU 07-22 06:48
PROVIDERS: Family Medicine; Internal Medicine Interventional Cardiology; Internal Medicine Nephrology; ADMIT Family Medicine; ATTEND Family Medicine
PROC: B2151ZZ Fluoroscopy of Left Heart using Low Osmolar Contrast (ICD-10-PCS; 2018-07-18)
PROC: 4A023N7 Measurement of Cardiac Sampling and Pressure, Left Heart, Percutaneous Approach (ICD-10-PCS; 2018-07-18)
PROC: B2111ZZ Fluoroscopy of Multiple Coronary Arteries using Low Osmolar Contrast (ICD-10-PCS; principal; 2018-07-18 09:39)
PROC: 5A12012 Performance of Cardiac Output, Single, Manual (ICD-10-PCS; 2018-07-22)
PROC: 0BH17EZ Insertion of Endotracheal Airway into Trachea, Via Natural or Artificial Opening (ICD-10-PCS; 2018-07-22)
DX: I21.4 Non-ST elevation (NSTEMI) myocardial infarction (principal); R40.2123 Coma scale, eyes open, to pain, at hospital admission; I42.9 Cardiomyopathy, unspecified; I50.22 Chronic systolic (congestive) heart failure; I13.0 Hypertensive heart and chronic kidney disease with heart failure and stage 1 through stage 4 chronic kidney disease, or unspecified chronic kidney disease; N17.9 Acute kidney failure, unspecified; I46.9 Cardiac arrest, cause unspecified; R00.0 Tachycardia, unspecified; I25.110 Atherosclerotic heart disease of native coronary artery with unstable angina pectoris; I48.0 Paroxysmal atrial fibrillation; Z95.0 Presence of cardiac pacemaker; D64.9 Anemia, unspecified; E78.5 Hyperlipidemia, unspecified; N18.9 Chronic kidney disease, unspecified; R55 Syncope and collapse; J32.0 Chronic maxillary sinusitis; R74.0 Nonspecific elevation of levels of transaminase and lactic acid dehydrogenase [LDH]; I45.81 Long QT syndrome; I95.9 Hypotension, unspecified; R40.2363 Coma scale, best motor response, obeys commands, at hospital admission; R40.2243 Coma scale, best verbal response, confused conversation, at hospital admission